=== PATIENT | female | born 1935 | race Caucasian/White ===

== ENCOUNTER → 2016-06-12 | Outpatient (CLI) | payer MEDICARE ==
[2016-06-12 14:20] LABS: Blood Urea Nitrogen 25 mg/dL (7-17); Non-African American GFR(MDRD) >60 (>60 ml/min/1.73 sqM)
--- NOTE | 2016-06-12 15:17 | CT ---
EXAMINATION TYPE: CT ChestAbdPelvis wo/w con DATE OF EXAM: 06/12/2016 3:04 PM INDICATION: Patient in for follow up on endometrial cancer and abdominal hernia COMPARISON: NONE CT DLP: 1579 mGycm CONTRAST: Performed with IV Contrast, patient injected with 100 mL of Omnipaque 300. TECHNIQUE: Axial images at 5 mm thick sections. Reconstructed images in the coronal plane. Delayed images through the kidneys. FINDINGS: CT CHEST: Portion of the thyroid visualized is normal. No suspicious lung nodules or focal infiltrates are present. No enlarged mediastinal or hilar adenopathy is evident. The ascending aorta diameter at the level of the main pulmonary artery is 3.7 cm. The main pulmonary artery diameter at the bifurcation is 3.2 cm. Vascular calcification is within the aorta. Some tracheal calcification is present. Coronary artery c alcification is present. CT ABDOMEN: Liver: Normal Spleen: Normal Pancreas: Atrophic Adrenal glands: The adrenal glands are normal. Gallbladder: Normal Kidneys: No masses are evident. No hydronephrosis is present. There is a 1.1 cm cyst measuring 11 H [place] units is superior posterior left pole kidney. Delayed images were obtained through the kid neys, which remain unremarkable. Aorta: Vascular calcification is within the aorta. Inferior vena cava: Normal. CT PELVIS: Loops of bowel within the abdomen and pelvis are normal. There are loops of bowel which are incom pletely distended or lack oral contrast limiting their evaluation. Appendix: Not clearly identified. No suspicious tubular structures are evident. Normal appendix may b e present in the right lower quadrant. Urinary bladder: Normal. Genitourinary structures: Uterus is absent. Adnexal regions are clear. No free fluid is within the pe lvis. Multiple phleboliths within the pelvis. Osseous structures: No suspicious lytic or sclerotic lesions. IMPRESSIONS: 1. No suspicious changes to suggest metastatic disease. 2. Left renal cyst
== END | disposition home or self-care (01) ==
LOC: RADCTMAIN 12:54
PROVIDERS: ATTEND Radiology Radiation Oncology
DX: N28.1 Cyst of kidney, acquired (principal); C54.1 Malignant neoplasm of endometrium
CPT/HCPCS: 82565; 84520; 71270; 74178; 36415; Q9967

== ENCOUNTER → 2017-02-22 | Outpatient (CLI) | payer MEDICARE ==
--- NOTE | 2017-02-22 11:44 | BD ---
EXAMINATION TYPE: MG DEXA axial skeleton. DATE OF EXAM: 02/22/2017 COMPARISON: NONE CLINICAL HISTORY: M85.9 Osteopenia Height: 4 FT 10 1/2 IN Weight: 172 FRAX RISK QUESTIONS: Alcohol (3 or more units per day): NO Family History (Parent hip fracture): NO Glucocorticoids (More than 3mos): NO (Ex: prednisone, prednisolone, methylprednisolone, dexamethasone, and hydrocortisone). History of Fracture in Adulthood: YES Secondary Osteoporosis: 1. Type 1 Diabetes: NO 2. Hyperthyroidism: NO 3. Menopause before 45: NO 4. Malnutrition: NO 5. Chronic liver disease: NO Rheumatoid Arthritis:YES Current Tobacco Use: NO RISK FACTORS HISTORY OF: Active: YES Postmenopausal woman: AGE 54 Lost more than 2 inches in height since high school: YES Frequent falls: NO MEDICATIONS: Additional Medications: HYZAAR, CATAPRES, LIPITOR, PROTONIX, TENORMIN, WARFARIN, APRESOLINE, NORVASC, MOBIC, BACLOFEN, LATANOPROST, CALCIUM, VIT D, Additional History: UTERINE CANCER RADIATION 2005 EXAM MEASUREMENTS: Bone mineral densitometry was performed using the [employer] System. Bone mineral density as measured about the Lumbar spine is: ----- L1-L4(G/cm2): 1.636 T Score Values are as follows: ----- L2: 3.4 ----- L3: 4.8 ----- L4: 4.6 ----- L1-L4: 3.8 BASELINE Bone mineral density about the R hip (g/cm2): 1.033 Bone mineral density about the L hip (g/cm2): 1.079 T Score values are as follows: -----R Neck: 0.0 -----L Neck: 0.3 -----R Total: 1.1 -----L Total: 1.4 BASELINE IMPRESSION: Negative NOTE: T-SCORE=SD OF THE YOUNG ADULT MEAN.
--- NOTE | 2017-02-22 13:29 | MM ---
Reason for exam: screening (asymptomatic). Last mammogram was performed 2 years and 10 months ago. History: Patient is postmenopausal and has history of endometrial cancer at age 69. Family history of breast cancer in maternal aunt at age 90. Physical Findings: A clinical breast exam by your physician is recommended on an annual basis and results should be correlated with mammographic findings. MG 3D Screening Mammo W/Cad Bilateral CC and MLO view(s) were taken. Prior study comparison: April 14, 2014, bilateral MG screening mammo w CAD. April 03, 2013, bilateral digital screening mammo w/CAD. The breast tissue is heterogeneously dense. This may lower the sensitivity of mammography. Finding: There are typically benign calcifications in both breasts. There is no discrete abnormality. No significant changes in finding since April 14, 2014 and April 03, 2013. ASSESSMENT: Benign, BI-RAD 2 RECOMMENDATION: Routine screening mammogram of both breasts in 1 year.
== END | disposition home or self-care (01) ==
LOC: RADMAMWWP 07:41
PROVIDERS: ATTEND Internal Medicine Geriatric Medicine
DX: Z12.31 Encounter for screening mammogram for malignant neoplasm of breast (principal); M81.0 Age-related osteoporosis without current pathological fracture
CPT/HCPCS: 77080; 77063; G0202

== ENCOUNTER → 2018-06-27 | Outpatient (CLI) | payer MEDICARE ==
[2018-06-27 15:55] LABS: Albumin 4.4 g/dL (3.5-5.0); Calcium 9.3 mg/dL (8.4-10.2); Potassium 4.2 mmol/L (3.5-5.1); Total Bilirubin 0.4 mg/dL (0.2-1.3); Total Protein 6.8 g/dL (6.3-8.2)
--- NOTE | 2018-06-28 08:36 | CT ---
EXAMINATION TYPE: CT ChestAbdPelvis wo/w con DATE OF EXAM: 06/27/2018 COMPARISON: 06/12/2016 HISTORY: yearly f/u uterine ca CT DLP: 1501.6 mGycm CONTRAST: CT scan of the chest, abdomen and pelvis is performed with Oral Contrast and with IV Contrast, patien t injected with 100 mL of Isovue 300. CT Chest: LUNGS: The study is limited by patient motion and resultant artifact. Other groundglass opacities at the lung bases which may be a result of the aforementioned artifact versus acute inflammatory process . I do not see evidence for focal nodule or mass. Linear upper lobe atelectasis or parenchymal scarri ng noted. MEDIASTINUM: There is evidence of moderately severe cardiomegaly. Coronary artery calcifications are noted. There is atheromatous change of the thoracic aorta without evidence for aneurysm. No evidence for mediastinal mass or adenopathy. HILAR STRUCTURES: No evidence for mass. No hilar adenopathy is appreciated. OTHER: No significant abnormality. CONTRAST CT ABDOMEN AND PELVIS FINDINGS: LIVER/GB: No calcified gallstones. No space occupying hepatic lesion. Biliary tree is of normal ca liber. PANCREAS: No inflammation. No distinct mass. SPLEEN: No splenic enlargement. No lesion seen. ADRENALS: No nodule. No thickening. KIDNEYS/BLADDER: No hydronephrosis. No nephrolithiasis. No disctinct renal mass. BOWEL: Normal appendix. Normal bowel caliber. No inflammation. GENITAL ORGANS: There is been previous hysterectomy and oophorectomy. No evidence for recurrent or re sidual mass. No adenopathy is seen within the pelvis. Social LYMPH NODES: No greater than 1cm abdominal or pelvic lymph nodes are appreciated. AORTA: No significant abnormality. OSSEOUS STRUCTURES: No significant abnormality is seen. OTHER: No significant additional abnormality is seen. IMPRESSION: 1. No evidence for metastatic disease at this time to the chest abdomen or pelvis. 2. Limited evaluation of the chest. Correlate for possible acute inflammatory process.
== END | disposition home or self-care (01) ==
LOC: RADCTMAIN 13:40
PROVIDERS: ATTEND Radiology Radiation Oncology
DX: C54.9 Malignant neoplasm of corpus uteri, unspecified (principal); R91.8 Other nonspecific abnormal finding of lung field
CPT/HCPCS: 80053; 71270; 74178; 36415; Q9967

== ENCOUNTER → 2018-07-30 | Outpatient (CLI) | payer MEDICARE ==
--- NOTE | 2018-07-31 09:53 | MM ---
Reason for exam: screening (asymptomatic). Last mammogram was performed 1 year and 5 months ago. History: Patient is postmenopausal and has history of endometrial cancer at age 69. Family history of breast cancer in maternal aunt at age 90. Physical Findings: A clinical breast exam by your physician is recommended on an annual basis and results should be correlated with mammographic findings. MG 3D Screening Mammo W/Cad Bilateral CC and MLO view(s) were taken. Prior study comparison: February 22, 2017, bilateral MG 3d screening mammo w/cad. April 14, 2014, bilateral MG screening mammo w CAD. The breast tissue is heterogeneously dense. This may lower the sensitivity of mammography. Stable benign calcifications. There is no discrete abnormality. No significant changes when compared with prior studies. ASSESSMENT: Benign, BI-RAD 2 RECOMMENDATION: Routine screening mammogram of both breasts in 1 year.
== END | disposition home or self-care (01) ==
LOC: RADMAMWWP 13:02
PROVIDERS: ATTEND Internal Medicine Geriatric Medicine
DX: Z12.31 Encounter for screening mammogram for malignant neoplasm of breast (principal)
CPT/HCPCS: 77063; 77067

== ENCOUNTER 2019-04-25 05:56 | Day surgery (SDC) | payer MEDICARE ==
[2019-04-24 15:13] VITALS: BMI 35.5
[2019-04-25] MEDS: SODIUM CHLORIDE 0.9% 1,000 ML IV SCH (06:37)
[2019-04-25 06:52] LABS: Anisocytosis Slight; Basophils # (A) 0.1 k/uL (0-0.2); Basophils % (A) 1 %; Eosinophils # (A) 0.1 k/uL (0-0.7); Eosinophils % (A) 1 %; HCT 29.4 % (34.0-46.0); HGB 8.9 gm/dL (11.4-16.0); Hypochromasia Marked; Lymphocytes # (A) 1.1 k/uL (1.0-4.8); Lymphocytes % (A) 15 %; MCH 29.3 pg (25.0-35.0); MCHC 30.3 g/dL (31.0-37.0); MCV 96.6 fL (80.0-100.0); Macrocytosis Slight; Mean Platelet Volume 9.6; Monocytes # (A) 0.6 k/uL (0-1.0); Monocytes % (A) 9 %; Neutrophils # (A) 5.2 k/uL (1.3-7.7); Neutrophils % (A) 72 %; Platelet Count 357 k/uL (150-450); RBC 3.04 m/uL (3.80-5.40); WBC 7.3 k/uL (3.8-10.6)
[2019-04-25] MEDS ORDERED: ceFAZolin 1,000 MG in SODIUM CHLORIDE 0.9% IRRIGATIO 250 ML IRRIGATION ONE (07:00)
[2019-04-25 07:01] LABS: Potassium 4.4 mmol/L (3.5-5.1)
[2019-04-25 07:08] LABS: INR 1.2 (<1.2); Prothrombin Time 12.4 sec (9.0-12.0)
[2019-04-25] MEDS ORDERED: IV FLUID CONTINUATION 1,000 ML IV ONE (07:30)
[2019-04-25] MEDS ORDERED: LIDOCAINE 1% INJ 10MG/ML (20 ML MDV) ONE (07:49)
[2019-04-25] MEDS ORDERED: fentaNYL (PF) 50 MCG/ML 2 ML AMP ONE (07:56)
[2019-04-25] MEDS ORDERED: MIDAZOLAM 2 MG/2 ML VIAL IV ONE (08:00)
[2019-04-25] MEDS ORDERED: fentaNYL (PF) 50 MCG/ML 2 ML AMP IV ONE (08:00)
[2019-04-25] MEDS ORDERED: LIDOCAINE 1% INJ 10MG/ML (20 ML MDV) SQ ONE ×3 (08:03→08:10)
[2019-04-25] MEDS ORDERED: ACETAMINOPHEN TAB 325 MG TAB PO PRN (08:46)
[2019-04-25] MEDS ORDERED: MELOXICAM 7.5 MG TAB PO PRN (08:47)
--- NOTE | 2019-04-25 08:55 | P.PCN ---
Date of Procedure: 04/25/19 Preoperative Diagnosis: Sick sinus syndrome Postoperative Diagnosis: The same Procedure(s) Performed: Axillary venography, single-chamber permanent pacemaker implantation Description of Procedure: HISTORY: This is a 83-year-old female with history of atrial fibrillation, sick sinus syndrome and syncope and was advised permanent pacemaker implantation by Dr. Haque. CONSENT:I have discussed the risks, benefits and alternative therapies for the above-mentioned procedure and for both sedation/analgesia as well as necessary blood product administration, if indicated, as they pertain to this patient. The patient has indicated understanding and acceptance of the risks and procedures discussed. PROCEDURE: Patient was brought to the lab in a fasting state. Patient was prepped and draped in the usual fashion. Patient was given IV sedation with fentanyl and Versed. The skin below the left clavicle was infiltrated with lidocaine. An incision was made parallel to deltopectoral groove was deepened until the pectoral fascia was exposed. A pocket was created by blunt dissection and cautery. Axillary venography was performed to delineate the course of the axillary vein. A single venous stick was performed into extrathoracic portion of the axillary vein and and a single sheath was advanced over the guidewires and left in subclavian vein. Conscious Sedation: Versed 1mg Fentanyl 12.5 g Duration 40minutes LEADS: VENTRICULAR: This is manufactured by [employer] model number is 4074-52 and the serial number is [id number]. THE DEVICE: This is manufactured by [employer]. Model number is W3SR01 and the serial number is [id number] . The ventricular lead is maneuvered l with help of a straight and curved stylets into the left ventricle apical region. Satisfactory position was obtained and threshold measurements were made. The atrial lead was then maneuvered into the right atrial appendage. And thresholds were obtained. THRESHOLDS: VENTRICLE: The minimum patient threshold is 0.375 at pulse width of 0.4. The impedance is 684. The R-wave is 7 mV. The leads and pulse generator remained in the pocket after it was washed with antibiotics. Pocket was closed in the usual fashion. The fascia was closed with 2-0 Prolene ,the subcutaneous tissue was closed with 3-0 Prolene and the skin was closed with 4-0 Prolene. PROGRAMMING: MODE: VVIR RATE: 60- 120 OUTPUT: Ventricle L and 3.5 V FINAL IMPRESSION: . Successful implantation of single-chamber pacemaker. Axillary venography COMPLICATIONS: None. PLAN: Continue prophylactic antibiotics. Observe on the observation unit for 24 hours. Chest x-ray in the morning. Resume home medication including Coumadin. If patient remains stable, discharge home tomorrow
[2019-04-25] MEDS ORDERED: NON FORMULARY DRUG (Omega-3 Fatty Acids [Omega-3] 1,000 MG) PO SCH (09:00)
[2019-04-25] MEDS ORDERED: BACLOFEN 10 MG TAB PO SCH (09:00)
[2019-04-25] MEDS ORDERED: MULTIVITAMINS, THERA 1 EACH TAB PO SCH (09:00)
[2019-04-25] MEDS ORDERED: amLODIPine 10 MG TAB PO SCH (09:00)
[2019-04-25] MEDS ORDERED: hydrALAZINE HCL 50 MG TAB PO SCH (09:00)
[2019-04-25] MEDS ORDERED: WARFARIN 5 MG TAB PO SCH (09:00)
[2019-04-25] MEDS ORDERED: LOSARTAN-HCTZ 50-12.5 MG 1 EACH TAB PO SCH (09:00)
[2019-04-25 09:40] VITALS: RESP 18
[2019-04-25] MEDS ORDERED: CALCIUM CARB-VIT D 500MG-200UN 1 EACH TAB PO SCH (12:30)
[2019-04-25] MEDS: CHOLECALCIFEROL 1,000 UNIT TAB PO SCH (13:02)
[2019-04-25] MEDS: hydrALAZINE HCL 50 MG TAB PO SCH (16:09)
[2019-04-25] MEDS: cloNIDine HCL 0.1 MG TAB PO SCH ×2 (16:09→20:51)
[2019-04-25] MEDS ORDERED: ATORVASTATIN 10 MG TAB PO SCH (17:30)
[2019-04-25] MEDS ORDERED: WARFARIN 5 MG TAB PO ONE (18:00)
[2019-04-25] MEDS ORDERED: LATANOPROST 0.005% OPHTH DROPS 2.5 ML BTL BOTH EYES SCH (21:00)
[2019-04-25] MEDS ORDERED: MELATONIN 5 MG TABLET PO SCH (21:00)
[2019-04-26] MEDS: hydrALAZINE HCL 50 MG TAB PO SCH ×2 (00:52→08:23)
[2019-04-26] MEDS: SODIUM CHLORIDE 0.9% 1,000 ML IV SCH (00:52)
[2019-04-26 06:26] LABS: INR 1.1 (<1.2); Prothrombin Time 11.6 sec (9.0-12.0)
--- NOTE | 2019-04-26 06:39 | XR ---
EXAMINATION TYPE: XR chest 2V DATE OF EXAM: 04/26/2019 HISTORY: Lead placement check. REFERENCE: Previous study dated 06/04/2013. FINDINGS: There is unipolar pacemaker place on the left. The heart is enlarged. Lungs are clear. Pleural spaces are clear. IMPRESSION: MILD CARDIOMEGALY.
[2019-04-26] MEDS ORDERED: PANTOPRAZOLE 40 MG TABLET PO SCH (07:30)
[2019-04-26] MEDS: CHOLECALCIFEROL 1,000 UNIT TAB PO SCH (08:24)
[2019-04-26] MEDS: cloNIDine HCL 0.1 MG TAB PO SCH (08:24)
[2019-04-26] MEDS ORDERED: BACLOFEN 10 MG TAB PO SCH (09:00)
[2019-04-26] MEDS ORDERED: MULTIVITAMINS, THERA 1 EACH TAB PO SCH (09:00)
[2019-04-26] MEDS ORDERED: LOSARTAN-HCTZ 50-12.5 MG 1 EACH TAB PO SCH (09:00)
[2019-04-26] MEDS ORDERED: amLODIPine 10 MG TAB PO SCH (09:00)
--- NOTE | 2019-04-26 10:07 | P.DS ---
Providers Attending physician: Caden Graff Primary care physician: [facility] Course: This is a very pleasant 83-year-old female patient who was diagnosed recently with sick sinus syndrome and underwent permanent pacemaker by Dr. Graff. The patient was seen today. She is asymptomatic. The chest x-ray was reviewed and showed no evidence of pneumothorax. It did also show a good position of the RV lead. The patient is going to be discharged home and follow-up with Dr. Dr. Graff Plan - Discharge Summary Discharge Rx Participant: Yes New Discharge Prescriptions: Continue Aspirin 81 mg PO W/SUPPER Atorvastatin Calcium [Lipitor] 10 mg PO W/SUPPER Melatonin 5 mg PO HS Gambier-3 Fatty Acids [Gambier-3] 1,000 mg PO DAILY #0 Ca/D3/Mag/Zinc/Cristóbal/Lavon/Mgbor [Caltrate 600-D3-Min Chew Tab] 1 tab PO W/LUNCH Pantoprazole [Protonix] 40 mg PO AC-BRKFST #30 tablet. Warfarin [Coumadin] 5 mg PO SUTUTHSA Warfarin [Coumadin] 2.5 mg PO MOWEFR hydrALAZINE HCL [Apresoline] 50 mg PO TID #90 tab amLODIPine [Norvasc] 10 mg PO DAILY Cholecalciferol [Vitamin D3 (25 Mcg = 1000 Iu)] 5,000 unit PO DAILY cloNIDine HCL [Catapres] 0.1 tab PO TID Multivitamins, Thera [Multivitamin (formulary)] 1 tab PO DAILY Latanoprost Ophth [Xalatan 0.005%] 1 drops BOTH EYES HS Celecoxib [CeleBREX] 200 mg PO DAILY PRN PRN Reason: Pain Baclofen [Lioresal] 5 mg PO DAILY Losartan/Hydrochlorothiazide [Losartan-Hctz 100-25 mg Tab] 1 tab PO DAILY Discharge Medication List Aspirin 81 mg PO W/SUPPER 05/10/15 [History] Atorvastatin Calcium [Lipitor] 10 mg PO W/SUPPER 05/10/15 [History] Ca/D3/Mag/Zinc/Cristóbal/Lavon/Mgbor [Caltrate 600-D3-Min Chew Tab] 1 tab PO W/LUNCH 05/10/15 [History] Melatonin 5 mg PO HS 05/10/15 [History] Gambier-3 Fatty Acids [Gambier-3] 1,000 mg PO DAILY #0 03/07/16 [History] Pantoprazole [Protonix] 40 mg PO BRIDGERKFST #30 tablet. 05/16/15 [Rx] Warfarin [Coumadin] 2.5 mg PO MOWEFR 10/14/15 [History] Warfarin [Coumadin] 5 mg PO SUTUTHSA 10/14/15 [History] hydrALAZINE HCL [Apresoline] 50 mg PO TID #90 tab 10/29/15 [Rx] Cholecalciferol [Vitamin D3 (25 Mcg = 1000 Iu)] 5,000 unit PO DAILY 02/08/16 [History] amLODIPine [Norvasc] 10 mg PO DAILY 02/08/16 [History] cloNIDine HCL [Catapres] 0.1 tab PO TID 02/08/16 [History] Baclofen [Lioresal] 5 mg PO DAILY 04/24/19 [History] Celecoxib [CeleBREX] 200 mg PO DAILY PRN 04/24/19 [History] Latanoprost Ophth [Xalatan 0.005%] 1 drops BOTH EYES HS 04/24/19 [History] Losartan/Hydrochlorothiazide [Losartan-Hctz 100-25 mg Tab] 1 tab PO DAILY 04/24/19 [History] Multivitamins, Thera [Multivitamin (formulary)] 1 tab PO DAILY 04/24/19 [History] Follow up Appointment(s)/Referral(s): Caden Graff MD [STAFF PHYSICIAN] - 1 Week
[2019-04-26 12:21] VITALS: BP 149/76; PULSE 62; TEMP 98.2
[2019-04-26] MEDS ORDERED: WARFARIN 5 MG TAB PO ONE (18:00)
== END 2019-04-26 13:00 | disposition home or self-care (01) ==
LOC: CATHEP 05:56 → 1SOBS 08:40 → CATHEP 04-26 13:00
PROVIDERS: ATTEND Internal Medicine Cardiovascular Disease
DX: I49.5 Sick sinus syndrome (principal); I48.21 Permanent atrial fibrillation; I11.9 Hypertensive heart disease without heart failure; E78.2 Mixed hyperlipidemia; Z72.0 Tobacco use; Z79.82 Long term (current) use of aspirin; Z79.899 Other long term (current) drug therapy; Z79.01 Long term (current) use of anticoagulants; Z86.79 Personal history of other diseases of the circulatory system; Z98.890 Other specified postprocedural states
CPT/HCPCS: 33207; 80048; 85025; 85610 ×2; 71046; C1769 ×2; C1892; C1898; C1786; J2250; J0690 ×2; J2001; J3010

== ENCOUNTER → 2019-09-22 | Outpatient (CLI) | payer MEDICARE ==
[2019-09-22 10:50] LABS: Anisocytosis Slight; Appearance,Urine Clear (Clear); Basophils % (A) 1 %; Bilirubin,Urine Negative (Negative); Blood,Urine Negative (Negative); Color,Urine Yellow; Eosinophils # (A) 0.1 k/uL (0-0.7); Eosinophils % (A) 2 %; Glucose,Urine (UA) Negative (Negative); HCT 33.7 % (34.0-46.0); HGB 10.4 gm/dL (11.4-16.0); Hypochromasia Moderate; Ketones,Urine Negative (Negative); Leukocyte Esterase,Urine Negative (Negative); Lymphocytes # (A) 1.3 k/uL (1.0-4.8); Lymphocytes % (A) 22 %; MCH 30.8 pg (25.0-35.0); MCHC 30.9 g/dL (31.0-37.0); MCV 99.6 fL (80.0-100.0); Macrocytosis Slight; Mean Platelet Volume 8.7; Monocytes # (A) 0.3 k/uL (0-1.0); Monocytes % (A) 6 %; Neutrophils % (A) 68 %; Nitrite,Urine Negative (Negative); Platelet Count 286 k/uL (150-450); Protein,Urine Negative (Negative); RBC 3.38 m/uL (3.80-5.40); RDW 16.3 % (11.5-15.5); Specific Gravity,Urine 1.013 (1.001-1.035); Urobilinogen,Urine <2.0 mg/dL (<2.0); WBC 5.9 k/uL (3.8-10.6)
--- NOTE | 2019-09-22 12:11 | XR ---
EXAMINATION TYPE: XR chest 2V DATE OF EXAM: 09/22/2019 COMPARISON: Prior chest x-ray 04/26/2019 HISTORY: Uterine carcinoma, COPD and atelectasis TECHNIQUE: Frontal and lateral views of the chest are obtained. FINDINGS: There is a generator in left pectoral region, is a lead in the right ventricle. There is n o pneumothorax or pleural effusion. Heart remains enlarged. Aorta is dense. There is mitral annular c alcification present. Interstitium is mildly increased. IMPRESSION: Findings are similar to prior exam. Correlate for possible pulmonary venous hypertension and interstitial edema.
[2019-09-22 16:54] LABS: % Iron Saturation 17.35 (12.00-45.00); ALT 14 U/L (8-44); AST 24 U/L (13-35); African American GFR (CKD) 77.9 (60.0-200.0); Alkaline Phosphatase 79 U/L (41-126); Bilirubin, Conjugated <0.20 mg/dL (0.20-0.40); Calcium 9.4 mg/dL (8.7-10.3); Chloride 107 mmol/L (96-109); Glucose 140 mg/dL (70-110); Iron 59 ug/dL (50-170); Non-African American GFR(CKD) 67.2 (60.0-200.0); Potassium 3.8 mmol/L (3.5-5.5); Sodium 141 mmol/L (135-145); Total Bilirubin 0.3 mg/dL (0.2-1.2); Total Iron Binding Capacity 340 ug/dL (228-460); Total Protein 6.4 g/dL (6.2-8.2)
[2019-09-22 17:04] LABS: Ferritin 29.9 ng/mL (10.0-291.0)
[2019-09-22 17:29] LABS: Cancer Antigen 125 9.3 U/mL (0.0-30.1)
== END | disposition home or self-care (01) ==
LOC: LABWHC1 09:30
PROVIDERS: ATTEND Radiology Radiation Oncology
DX: C54.9 Malignant neoplasm of corpus uteri, unspecified (principal); R10.33 Periumbilical pain; Z92.3 Personal history of irradiation
CPT/HCPCS: 36415; 71046; 80048; 80076; 81003; 82306; 82728; 83540; 83550; 84425; 84439; 84443; 84481; 85025; 86304; 87086

== ENCOUNTER 2022-03-17 19:41 | Inpatient (IN) | payer MEDICARE ==
--- NOTE | 2022-03-17 20:32 | ED ---
Extremity Problem HPI - General Chief complaint: Extremity Problem,Nontraumatic Stated complaint: lymphodema Time Seen by Provider: 03/17/22 19:57 Source: patient, EMS Mode of arrival: EMS Limitations: no limitations - History of Present Illness Initial comments: Patient is an 86-year-old female presenting to the emergency room with complaints of worsening of chronic lower extremity swelling and lower extremity pain. She reports that she has her lower extremities wrapped daily and has been encouraged by her surgical pathologist and family to present to the emergency room but has been reluctant to do so however due to increase in pain and swelling she chose to contact EMS for transportation to the emergency room. She does have a history of uterine cancer and developed lymphedema after surgical intervention. She denies any shortness of breath, chest pain, abdominal pain, nausea, vomiting, headache or dizziness. She is able to ambulate but reports that it is difficult. She denies any trauma to her lower extremities. She reports that her legs are wrapped daily by an aide which she has come into her home. In addition to her uterine cancer lower extremity swelling she has a past medical history significant for atrial fibrillation, GERD, hypertension, hyperlipidemia and arthritis. - Related Data Home Medications Medication Instructions Recorded Confirmed Aspirin 81 mg PO W/SUPPER 05/10/15 04/24/19 Atorvastatin Calcium [Lipitor] 10 mg PO W/SUPPER 05/10/15 04/24/19 Ca/D3/Mag/Zinc/Cristóbal/Lavon/Mgbor 1 tab PO W/LUNCH 05/10/15 04/25/19 [Caltrate 600-D3-Min Chew Tab] Melatonin 5 mg PO HS 05/10/15 04/25/19 [place]-3 Fatty Acids [[place]-3] 1,000 mg PO DAILY #0 05/10/15 04/25/19 Warfarin [Coumadin] 2.5 mg PO MOWEFR 10/14/15 04/25/19 Warfarin [Coumadin] 5 mg PO SUTUTHSA 10/14/15 04/25/19 Cholecalciferol [Vitamin D3 (25 5,000 unit PO DAILY 02/08/16 04/25/19 Mcg = 1000 Iu)] amLODIPine [Norvasc] 10 mg PO DAILY 02/08/16 04/25/19 cloNIDine HCL [Catapres] 0.1 tab PO TID 02/08/16 04/25/19 Baclofen [Lioresal] 5 mg PO DAILY 04/24/19 04/25/19 Celecoxib [CeleBREX] 200 mg PO DAILY PRN 04/24/19 04/25/19 Latanoprost Ophth [Xalatan 0.005%] 1 drops BOTH EYES HS 04/24/19 04/25/19 Losartan/Hydrochlorothiazide 1 tab PO DAILY 04/24/19 04/25/19 [Losartan-Hctz 100-25 mg Tab] Multivitamins, Thera [Multivitamin 1 tab PO DAILY 04/24/19 04/25/19 (formulary)] Previous Rx's Medication Instructions Recorded Pantoprazole [Protonix] 40 mg PO AC-BRKFST #30 tablet. 05/16/15 hydrALAZINE HCL [Apresoline] 50 mg PO TID #90 tab 10/29/15 Allergies Allergy/AdvReac Type Severity Reaction Status Date / Time No Known Allergies Allergy Verified 04/24/19 15:03 Review of Systems ROS Statement: Those systems with pertinent positive or pertinent negative responses have been documented in the HPI. ROS Other: All systems not noted in ROS Statement are negative. Past Medical History Past Medical History: Atrial Fibrillation, Cancer, GERD/Reflux, Hyperlipidemia, Hypertension, Osteoarthritis (OA) Additional Past Medical History / Comment(s): uterine cancer 14 yrs. ago, surg. & radiation, IGT,chronic dependent edema left leg-leg wrapped, VARICOSE VEINS, urinary incontinence, recent admission to [facility] for fall & syncope History of Any Multi-Drug Resistant Organisms: None Reported Past Surgical History: Bowel Resection, Hysterectomy, Tonsillectomy Additional Past Surgical History / Comment(s): lung surgery left thoracotomy negative for lung mass 2007, SMALL VAGINAL MASS REMOVED, COLONOSCOPY,ELISEO CATARACT. Past Anesthesia/Blood Transfusion Reactions: No Reported Reaction Past Psychological History: No Psychological Hx Reported Past Alcohol Use History: Occasional Past Drug Use History: None Reported - Past Family History Father Family Medical History: Coronary Artery Disease (CAD) Mother Family Medical History: Coronary Artery Disease (CAD) Brother(s) Family Medical History: Cancer Son(s) Family Medical History: Respiratory Disorder General Exam - General Exam Comments Initial Comments: GENERAL: No acute distress, well developed, well nourished. HEENT: Normocephalic, atraumatic. Pupils equal, round, reactive to light. Moist mucous membranes. LUNGS: No respiratory distress. Clear to auscultation, no adventitious sounds, no use of accessory muscles. HEART: Irregular rhythm, controlled rate with systolic murmur, without diastolic murmur, rub, or gallop. ABDOMEN: Normal bowel sounds. Soft, non-tender, non-distended. BACK: Normal inspection. EXTREMITIES: Bilateral lower extremity edema +2 pitting with significant nonpitting edema. NEUROLOGIC: Alert & oriented x 3. CN II-XII grossly intact. PSYCHIATRIC: Normal affect and behavior. DERMATOLOGIC: Bilateral wrappings intact to lower extremities. Area of erythema noted to her right inner thigh. Dry scaly patches noted to bilateral feet. Limitations: no limitations Course Vital Signs 03/17/22 19:50 Temperature 98 F Pulse Rate 60 Respiratory 18 Rate Blood Pressure 103/50 O2 Sat by Pulse 98 Oximetry Medical Decision Making - Medical Decision Making Was pt. sent in by a medical professional or institution (, PA, SPACE SCHEDULER, urgent care, hospital, or senior living...) When possible be specific @ -No Did you speak to anyone other than the patient for history (EMS, parent, family, police, friend...)? What history was obtained from this source @ -EMS report reviewed Did you review nursing and triage notes (agree or disagree)? Why? @ -I reviewed and agree with nursing and triage notes Were old charts reviewed (outside hosp., previous admission, EMS record, old EKG, old radiological studies, urgent care reports/EKG's, senior living records)? Report findings @ -No old charts were reviewed Differential Diagnosis (chest pain, altered mental status, abdominal pain women, abdominal pain men, vaginal bleeding, weakness, fever, dyspnea, syncope, headache, dizziness, GI bleed, back pain, seizure, CVA, palpatations, mental health)? @ -Differential lower extremity swelling: Congestive heart failure, lymphedema, cellulitis, DVT, this is not meant to be an all-inclusive list. EKG interpreted by me (3pts min.). @ -Not done X-rays interpreted by me (1pt min.). @ -Chest x-ray two-view demonstrates cardiomegaly with no evidence of pulmonary vascular congestion. CT interpreted by me (1pt min.). @ -None done U/S interpreted by me (1pt. min.). @ -None done What testing was considered but not performed or refused? (CT, X-rays, U/S, labs)? Why? @ -None What meds were considered but not given or refused? Why? @ -None Did you discuss the management of the patient with other professionals (professionals i.e. , PA, SPACE SCHEDULER, lab, RT, psych nurse, rn social services, tar worker, teacher, worldwide chief creative officer, caser in)? Give summary @ -Krissy Chiu [facility] Was smoking cessation discussed for >3mins.? @ -No Was critical care preformed (if so, how long)? @ -No Were there social determinants of health that impacted care today? How? (Homelessness, low income, unemployed, alcoholism, drug addiction, transportation, low edu. Level, literacy, decrease access to med. care, fdc, rehab)? @ -No Was there de-escalation of care discussed even if they declined (Discuss DNR or withdrawal of care, Hospice)? DNR status @ -No What co-morbidities impacted this encounter? (DM, HTN, Smoking, COPD, CAD, Cancer, CVA, ARF, Chemo, Hep., AIDS, mental health diagnosis, sleep apnea, morbid obesity)? @ -Chronic lower extremity swelling/lymphedema Was patient admitted / discharged? Hospital course, mention meds given and rout e, prescriptions, significant lab abnormalities, going to OR and other pertinent info. @ -No indication for ultrasound or imaging of the lower extremities in the setting of chronic swelling without any localized wound. Will obtain chest x-ray to evaluate for pulmonary vascular congestion along with proBNP, CBC, and BMP. Denies pain at this time. No indication for any analgesics. Overlie likely secondary to lymphedema will hold diuretics at this time. Chest x-ray negative for pulmonary vascular congestion. As above. Laboratory studies reveal acute renal failure with a BUN of 106 and a creatinine of 1.66. Mildly elevated potassium at 5.5. Suspect secondary to attempts for diuresis of lymphedema. ProBNP elevated at 5480. CBC reveals anemia of 7.4 with no previous readings available. Asymptomatic. Findings discussed with patient; will plan for admission for ZAC, anemia and lymphedema management. Will defer further treatment to admitting team. Spoke with Krissy Valencia with [facility] regarding admission. She is excepting admission. No further orders at this time. Will consult nephrology for evaluation and management of ZAC and diuretic need. Undiagnosed new problem with uncertain prognosis? @ -No Drug Therapy requiring intensive monitoring for toxicity (Heparin, Nitro, Insulin, Cardizem)? @ -No Were any procedures done? @ -No Diagnosis/symptom? @ -Acute renal failure Acute, or Chronic, or Acute on Chronic? @ -Acute Uncomplicated (without systemic symptoms) or Complicated (systemic symptoms)? @ -Complicated Side effects of treatment? @ -No Exacerbation, Progression, or Severe Exacerbation? @ -Exacerbation Poses a threat to life or bodily function? How? (Chest pain, USA, NH, pneumonia, PE, COPD, DKA, ARF, appy, cholecystitis, CVA, Diverticulitis, Homicidal, Suicidal, threat to staff... and all critical care pts) @ -No Diagnosis/symptom? @ -Lymphedema Acute, or Chronic, or Acute on Chronic? @ -Acute on chronic Uncomplicated (without systemic symptoms) or Complicated (systemic symptoms)? @ -Complicated Side effects of treatment? @ -ZAC Exacerbation, Progression, or Severe Exacerbation] @ -Progression Poses a threat to life or bodily function? @ -no Diagnosis/symptom? @ -Anemia Acute, or Chronic, or Acute on Chronic? @ -unknown Uncomplicated (without systemic symptoms) or Complicated (systemic symptoms)? @ -complicated Side effects of treatment? @ -none Exacerbation, Progression, or Severe Exacerbation] @ -unknown Poses a threat to life or bodily function? @ -no Case discussed with Dr. Johnson. - Lab Data Result diagrams: 03/17/22 20:39 03/17/22 20:39 Lab Results 03/17/22 03/17/22 03/17/22 Range/Units 20:39 20:39 20:39 WBC 7.0 (3.8-10.6) k/uL RBC 2.39 L (3.80-5.40) m/uL Hgb 7.4 L (11.4-16.0) gm/dL Hct 25.1 L (34.0-46.0) % MCV 105.3 H (80.0-100.0) fL MCH 31.0 (25.0-35.0) pg MCHC 29.4 L (31.0-37.0) g/dL RDW 19.8 H (11.5-15.5) % Plt Count 333 (150-450) k/uL MPV 9.6 Neutrophils % 74 % Lymphocytes % 12 % Monocytes % 7 % Eosinophils % 4 % Basophils % 1 % Neutrophils # 5.1 (1.3-7.7) k/uL Lymphocytes # 0.8 L (1.0-4.8) k/uL Monocytes # 0.5 (0-1.0) k/uL Eosinophils # 0.3 (0-0.7) k/uL Basophils # 0.1 (0-0.2) k/uL Hypochromasia Marked Anisocytosis Slight Macrocytosis Marked A Sodium 138 (137-145) mmol/L Potassium 5.5 H (3.5-5.1) mmol/L Chloride 107 (98-107) mmol/L Carbon Dioxide 21 L (22-30) mmol/L Anion Gap 10 mmol/L BUN 106 H* (7-17) mg/dL Creatinine 1.66 H (0.52-1.04) mg/dL Est GFR (CKD-EPI)AfAm 32 (>60 ml/min/1.73 sqM) Est GFR (CKD-EPI)NonAf 28 (>60 ml/min/1.73 sqM) Glucose 147 H (74-99) mg/dL Calcium 8.7 (8.4-10.2) mg/dL NT-Pro-B Natriuret Pep 5480 pg/mL - Radiology Data Radiology results: report reviewed, image reviewed Disposition Clinical Impression: ZAC (acute kidney injury), Anemia, Lymphedema Disposition: ADMITTED IP TO THIS HOSP Condition: Stable Is patient prescribed a controlled substance at d/c from ED?: No Referrals: Tutu Augustine MD [Primary Care Provider] - 1-2 days Time of Disposition: 21:55
--- NOTE | 2022-03-17 20:35 | XR ---
EXAMINATION TYPE: XR chest 2V DATE OF EXAM: 03/17/2022 COMPARISON: 04/26/2019 HISTORY: Lead placement TECHNIQUE: 2 views FINDINGS: Heart is moderately enlarged. No heart failure. There is left axillary pacemaker with lead tip over the right ventricle. No pleural effusion. Bony thorax shows moderate arthritic change in the shoulder joints. IMPRESSION: Cardiomegaly. No heart failure. Heart appears increased compared to the old exam.
[2022-03-17 20:44] LABS: Anisocytosis Slight; Basophils # (A) 0.1 k/uL (0-0.2); Basophils % (A) 1 %; Eosinophils # (A) 0.3 k/uL (0-0.7); Eosinophils % (A) 4 %; HCT 25.1 % (34.0-46.0); HGB 7.4 gm/dL (11.4-16.0); Hypochromasia Marked; Lymphocytes # (A) 0.8 k/uL (1.0-4.8); Lymphocytes % (A) 12 %; MCHC 29.4 g/dL (31.0-37.0); MCV 105.3 fL (80.0-100.0); Macrocytosis Marked; Mean Platelet Volume 9.6; Monocytes # (A) 0.5 k/uL (0-1.0); Monocytes % (A) 7 %; Neutrophils # (A) 5.1 k/uL (1.3-7.7); Neutrophils % (A) 74 %; Platelet Count 333 k/uL (150-450); RBC 2.39 m/uL (3.80-5.40); RDW 19.8 % (11.5-15.5)
[2022-03-17 20:56] LABS: Calcium 8.7 mg/dL (8.4-10.2)
[2022-03-17 21:03] LABS: Potassium 5.5 mmol/L (3.5-5.1)
[2022-03-17] MEDS ORDERED: NALOXONE 0.4 MG/ML 1 ML VIAL IV PRN (21:51)
[2022-03-17] MEDS ORDERED: ACETAMINOPHEN TAB 500 MG TAB PO STA (22:32)
[2022-03-17] MEDS ORDERED: SODIUM ZIRCONIUM CYCLOSILICATE 10 GM PACKET PO ONE (23:46)
[2022-03-18] MEDS ORDERED: ACETAMINOPHEN TAB 325 MG TAB PO PRN (04:08)
[2022-03-18] MEDS ORDERED: traMADol 50 MG TAB PO STA (06:23)
[2022-03-18 07:35] LABS: Calcium 8.8 mg/dL (8.4-10.2); Magnesium 1.6 mg/dL (1.6-2.3); Phosphorus 4.4 mg/dL (2.5-4.5); Potassium 4.5 mmol/L (3.5-5.1)
[2022-03-18 07:44] LABS: Anisocytosis Slight; Basophils # (A) 0.1 k/uL (0-0.2); Basophils % (A) 1 %; Eosinophils # (A) 0.4 k/uL (0-0.7); Eosinophils % (A) 6 %; HCT 23.9 % (34.0-46.0); Hypochromasia Marked; Lymphocytes # (A) 0.9 k/uL (1.0-4.8); Lymphocytes % (A) 13 %; MCH 31.1 pg (25.0-35.0); MCHC 29.3 g/dL (31.0-37.0); MCV 106.2 fL (80.0-100.0); Macrocytosis Marked; Mean Platelet Volume 9.3; Monocytes # (A) 0.5 k/uL (0-1.0); Monocytes % (A) 7 %; Neutrophils # (A) 4.7 k/uL (1.3-7.7); Neutrophils % (A) 70 %; Platelet Count 302 k/uL (150-450); RBC 2.25 m/uL (3.80-5.40); RDW 19.7 % (11.5-15.5); WBC 6.6 k/uL (3.8-10.6)
--- NOTE | 2022-03-18 10:36 | P.NPCON ---
History of Present Illness - Reason for Consult Consult date: 03/18/22 acute renal failure - Chief Complaint Chronic lymphedema - History of Present Illness This is an 86-year-old female seen in consultation for acute kidney injury, hyperkalemia.creatinine was 1.66 and potassium 5.5 with a bicarb of 21 gap of 10. She was admitted because of worsening chronic bilateral lymphedema with open sores Her baseline creatinine 0.8 dated 09/22/2019. And then subsequently was 1.66 on admission yesterday on 03/17/2022 Past history significant for atrial fibrillation, uterine cancer status post surgery and radiation, chronic lymphedema, left carotid endarterectomy 2015, atrial fibrillation, pacemaker in 2019 Currently she is denying any nausea vomiting abdominal pain. No diarrhea. Appetite is fair. No fever chills. Denies any bladder complaints Past Medical History Past Medical History: Atrial Fibrillation, Cancer, GERD/Reflux, Hyperlipidemia, Hypertension, Osteoarthritis (OA), Syncope Additional Past Medical History / Comment(s): uterine cancer 14 yrs. ago, surg. & radiation, IGT,chronic dependent edema left leg-leg wrapped, VARICOSE VEINS, urinary incontinence, recent admission to [facility] for fall & syncope History of Any Multi-Drug Resistant Organisms: None Reported Past Surgical History: Bowel Resection, Hysterectomy, Tonsillectomy Additional Past Surgical History / Comment(s): lung surgery left thoracotomy negative for lung mass 2007?, SMALL VAGINAL MASS REMOVED, COLONOSCOPY,ELISEO CATARACT. Past Anesthesia/Blood Transfusion Reactions: No Reported Reaction Past Psychological History: No Psychological Hx Reported Smoking Status: Former smoker Past Alcohol Use History: Occasional Additional Past Alcohol Use History / Comment(s): SMOKED FOR 5 YEARS IN HER EARLY 30'S THEN QUIT Past Drug Use History: None Reported - Past Family History Father Family Medical History: Coronary Artery Disease (CAD) Mother Family Medical History: Coronary Artery Disease (CAD) Brother(s) Family Medical History: Cancer Son(s) Family Medical History: Respiratory Disorder Medications and Allergies Home Medications Medication Instructions Recorded Confirmed Type Aspirin 81 mg PO W/SUPPER 05/10/15 04/24/19 History Atorvastatin Calcium [Lipitor] 10 mg PO W/SUPPER 05/10/15 04/24/19 History Ca/D3/Mag/Zinc/Cristóbal/Lavon/Mgbor 1 tab PO W/LUNCH 05/10/15 04/25/19 History [Caltrate 600-D3-Min Chew Tab] Melatonin 5 mg PO HS 05/10/15 04/25/19 History [place]-3 Fatty Acids [[place]-3] 1,000 mg PO DAILY #0 05/10/15 04/25/19 History Pantoprazole [Protonix] 40 mg PO AC-BRKFST #30 tablet. 05/16/15 04/25/19 Rx Warfarin [Coumadin] 2.5 mg PO MOWEFR 10/14/15 04/25/19 History Warfarin [Coumadin] 5 mg PO SUTUTHSA 10/14/15 04/25/19 History hydrALAZINE HCL [Apresoline] 50 mg PO TID #90 tab 10/29/15 04/25/19 Rx Cholecalciferol [Vitamin D3 (25 5,000 unit PO DAILY 02/08/16 04/25/19 History Mcg = 1000 Iu)] amLODIPine [Norvasc] 10 mg PO DAILY 02/08/16 04/25/19 History cloNIDine HCL [Catapres] 0.1 tab PO TID 02/08/16 04/25/19 History Baclofen [Lioresal] 5 mg PO DAILY 04/24/19 04/25/19 History Celecoxib [CeleBREX] 200 mg PO DAILY PRN 04/24/19 04/25/19 History Latanoprost Ophth [Xalatan 0.005%] 1 drops BOTH EYES HS 04/24/19 04/25/19 History Losartan/Hydrochlorothiazide 1 tab PO DAILY 04/24/19 04/25/19 History [Losartan-Hctz 100-25 mg Tab] Multivitamins, Thera [Multivitamin 1 tab PO DAILY 04/24/19 04/25/19 History (formulary)] Allergies Allergy/AdvReac Type Severity Reaction Status Date / Time No Known Allergies Allergy Verified 04/24/19 15:03 Physical Exam Vitals: Vital Signs Temp Pulse Pulse Resp BP BP Pulse Ox 03/18/22 07:00 97.6 F 63 16 125/61 96 03/18/22 02:00 98.2 F 58 L 17 94/55 99 03/17/22 23:30 97.7 F 65 16 96/58 99 03/17/22 22:57 62 16 125/60 97 03/17/22 19:50 98 F 60 18 103/50 98 Intake and Output 03/17/22 03/18/22 03/18/22 22:59 06:59 14:59 Intake Total 320 Balance 320 Intake: Oral 320 Other: # Voids 4 # Bowel Movements 1 Weight 67.132 kg On examination is awake alert oriented. HEENT exam, elevated JVD at about 7-8 cm. Neck is supple no facial asymmetry Lungs are clear to auscultation good air entry bilaterally Heart sounds unremarkable Abdomen soft nontender no organomegaly ascites masses Extremity exam was lymphedema chronically with bilateral bandages. Edema extends up to the thighs. Neurologically awake and alert oriented. Results - Lab Results Most recent lab results Calcium 8.8 mg/dL (8.4-10.2) 03/18/22 06:19 Phosphorus 4.4 mg/dL (2.5-4.5) 03/18/22 06:19 Magnesium 1.6 mg/dL (1.6-2.3) 03/18/22 06:19 03/18/22 06:19 03/18/22 06:19 Assessment and Plan Plan: impression 1. Acute kidney injury secondary to prerenal factors, from nonsteroidal as well as low intake and medication including diuretics and antihypertensive medication including amlodipine. 2. Chronic severe lymphedema chronic postop uterine cancer surgery and radiation, worsening recently. Some element of amlodipine additionally causing edema hyperkalemia secondary to 3. Hyperkalemia secondary to losartan and Celebrex, rule out outlet obstruction 4. History of uterine cancer in remission, status post surgery and radiation with lymphedema. 5. Mild non-gap acidosis bicarb is 21 with a gap of 10. 6. Anemia hemoglobin is 7 rule out an deficiency Accommodation 1. Hold off any amlodipine or other afterload reducers because of the potential to cause edema. 2. Gentle diuresis as needed to reduce the lymphedema 3. Check bladder scan to ensure there is no outlet obstruction. 4. Will check ultrasound of the kidney to ensure there is no obstruction 5. Check labs again tomorrow including iron and TIBC . Thank you for this consultation will continue to follow
[2022-03-18] MEDS ORDERED: ALBUTEROL NEBULIZED 2.5 MG/3 ML INHALATION PRN ×2 (14:21→14:44)
--- NOTE | 2022-03-18 14:33 | P.HPIM ---
History of Present Illness 86-year-old female was brought in because of bilateral lower extremity lymphedema and open sores. Patient is also found to be in acute renal failure with creatinine of around 1.45 baseline is around 0.8. Patient doesn't have any fever or leukocytosis. Nephrology evaluated the patient patient does take Lasix at home. REVIEW OF SYSTEMS: CONSTITUTIONAL: No fever, no malaise, no fatigue. HEENT: No recent visual problems or hearing problems. Denied any sore throat. CARDIOVASCULAR: No chest pain, orthopnea, PND, no palpitations, no syncope. PULMONARY: No shortness of breath, no cough, no hemoptysis. GASTROINTESTINAL: No diarrhea, no nausea, no vomiting, no abdominal pain. NEUROLOGICAL: No headaches, no weakness, no numbness. HEMATOLOGICAL: Denies any bleeding or petechiae. GENITOURINARY: Denies any burning micturition, frequency, or urgency. MUSCULOSKELETAL/RHEUMATOLOGICAL: Denies any joint pain, swelling, or any muscle pain. ENDOCRINE: Denies any polyuria or polydipsia. The rest of the 14-point review of systems is negative. PHYSICAL EXAMINATION: GENERAL: The patient is alert and oriented x3, not in any acute distress. Well developed, well nourished. HEENT: Pupils are round and equally reacting to light. EOMI. No scleral icterus. No conjunctival pallor. Normocephalic, atraumatic. No pharyngeal erythema. No thyromegaly. CARDIOVASCULAR: S1 and S2 present. No murmurs, rubs, or gallops. PULMONARY: Chest is clear to auscultation, no wheezing or crackles. ABDOMEN: Soft, nontender, nondistended, normoactive bowel sounds. No palpable organomegaly. MUSCULOSKELETAL: No joint swelling or deformity. EXTREMITIES: No cyanosis, clubbing, or pedal edema. NEUROLOGICAL: Gross neurological examination did not reveal any focal deficits. SKIN: Excessive but her bilateral lower extremities with skin breakdown possibly of cellulitis Assessment and plan -Possible bilateral lower extremity cellulitis multiple ulcerations lymphedema: Atrial fibrillation will be started on ceftezole with local wound care infectious disease will be consulted. -Acute renal failure secondary to diuretics for a lymphedema, Celebrex will discuss reviewed ultrasound of the kidneys being obtain nephrology evaluated the patient and her chronic severe lymphedema bilateral lower extremity status post can cancel radiation therapy in the past -Hypertension patient is presently hypotensive hold off all activities medica tions amlodipine may be contributing bilateral lower extremity edema -Hyperkalemia secondary to Rocephin which is being held as well -Non-anion gap metabolic acidosis secondary to renal failure -Proximal atrial fibrillation on the chest recent DVT prophylaxis: Patient is on eliquis at home which will be continued Past Medical History Past Medical History: Atrial Fibrillation, Cancer, GERD/Reflux, Hyperlipidemia, Hypertension, Osteoarthritis (OA), Syncope Additional Past Medical History / Comment(s): uterine cancer 14 yrs. ago, surg. & radiation, IGT,chronic dependent edema left leg-leg wrapped, VARICOSE VEINS, urinary incontinence, recent admission to [facility] for fall & syncope History of Any Multi-Drug Resistant Organisms: None Reported Past Surgical History: Bowel Resection, Hysterectomy, Tonsillectomy Additional Past Surgical History / Comment(s): lung surgery left thoracotomy negative for lung mass 2007?, SMALL VAGINAL MASS REMOVED, COLONOSCOPY,ELISEO CATARACT. Past Anesthesia/Blood Transfusion Reactions: No Reported Reaction Past Psychological History: No Psychological Hx Reported Smoking Status: Former smoker Past Alcohol Use History: Occasional Additional Past Alcohol Use History / Comment(s): SMOKED FOR 5 YEARS IN HER EARLY 30'S THEN QUIT Past Drug Use History: None Reported - Past Family History Father Family Medical History: Coronary Artery Disease (CAD) Mother Family Medical History: Coronary Artery Disease (CAD) Brother(s) Family Medical History: Cancer Son(s) Family Medical History: Respiratory Disorder Medications and Allergies Home Medications Medication Instructions Recorded Confirmed Type Aspirin 81 mg PO W/SUPPER 05/10/15 03/18/22 History Atorvastatin Calcium [Lipitor] 10 mg PO DAILY 05/10/15 03/18/22 History cloNIDine HCL [Catapres] 0.1 tab PO TID 02/08/16 03/18/22 History Baclofen [Lioresal] 5 mg PO Q6H PRN 04/24/19 03/18/22 History Celecoxib [CeleBREX] 200 mg PO DAILY 04/24/19 03/18/22 History Latanoprost Ophth [Xalatan 0.005%] 1 drop BOTH EYES HS 04/24/19 03/18/22 History Multivitamins, Thera [Multivitamin 1 tab PO W/LUNCH 04/24/19 03/18/22 History (formulary)] Acetaminophen Tab [Tylenol Tab] 500 mg PO Q6H PRN 03/18/22 03/18/22 History Albuterol Sulfate [Proair 2 puff INHALATION RT-Q4H PRN 03/18/22 03/18/22 History Respiclick] Apixaban [Eliquis] 2.5 mg PO BID 03/18/22 03/18/22 History Calcium Carbonate 500 mg PO W/LUNCH 03/18/22 03/18/22 History Cholecalciferol (Vitamin D3) 125 mcg PO W/LUNCH 03/18/22 03/18/22 History [Vitamin D3 (125 MCG = 5,000 IU)] Dorzolamide-Timol 2.23%/0.68% 1 drop BOTH EYES BID 03/18/22 03/18/22 History [Cosopt] Furosemide [Lasix] 40 mg PO DAILY 03/18/22 03/18/22 History Losartan Potassium 100 mg PO DAILY 03/18/22 03/18/22 History Melatonin 5 - 10 mg PO HS 03/18/22 03/18/22 History Metoprolol Succinate (ER) [Toprol 50 mg PO DAILY 03/18/22 03/18/22 History Xl] Pantoprazole [Protonix] 40 mg PO DAILY 03/18/22 03/18/22 History Sennosides/Docusate Sodium [Senna 1 - 2 tab PO HS 03/18/22 03/18/22 History Plus 8.6-50 mg Softgel] Silver Sulfadiazine [SSD 1% Cream] 1 applic TOPICAL DAILY 03/18/22 03/18/22 History Spironolactone [Aldactone] 12.5 mg PO DAILY 03/18/22 03/18/22 History hydrALAZINE HCL [Apresoline] 50 mg PO BID 03/18/22 03/18/22 History Allergies Allergy/AdvReac Type Severity Reaction Status Date / Time No Known Allergies Allergy Verified 03/18/22 11:02 Physical Exam Vitals: Vital Signs Temp Pulse Pulse Resp BP BP Pulse Ox 03/18/22 07:00 97.6 F 63 16 125/61 96 03/18/22 02:00 98.2 F 58 L 17 94/55 99 03/17/22 23:30 97.7 F 65 16 96/58 99 03/17/22 22:57 62 16 125/60 97 03/17/22 19:50 98 F 60 18 103/50 98 Intake and Output 03/17/22 03/18/22 03/18/22 22:59 06:59 14:59 Intake Total 520 Balance 520 Intake: Oral 520 Other: Voiding Method Bedside Commode # Voids 4 # Bowel Movements 1 Weight 67.132 kg Results CBC & Chem 7: 03/18/22 06:19 03/18/22 06:19 Labs: Abnormal Lab Results - Last 24 Hours (Table) 03/17/22 03/17/22 03/18/22 Range/Units 20:39 20:39 06:19 RBC 2.39 L 2.25 L (3.80-5.40) m/uL Hgb 7.4 L 7.0 L (11.4-16.0) gm/dL Hct 25.1 L 23.9 L (34.0-46.0) % MCV 105.3 H 106.2 H (80.0-100.0) fL MCHC 29.4 L 29.3 L (31.0-37.0) g/dL RDW 19.8 H 19.7 H (11.5-15.5) % Lymphocytes # 0.8 L 0.9 L (1.0-4.8) k/uL Macrocytosis Marked A Marked A Potassium 5.5 H (3.5-5.1) mmol/L Chloride (98-107) mmol/L Carbon Dioxide 21 L (22-30) mmol/L BUN 106 H* (7-17) mg/dL Creatinine 1.66 H (0.52-1.04) mg/dL Glucose 147 H (74-99) mg/dL 03/18/22 Range/Units 06:19 RBC (3.80-5.40) m/uL Hgb (11.4-16.0) gm/dL Hct (34.0-46.0) % MCV (80.0-100.0) fL MCHC (31.0-37.0) g/dL RDW (11.5-15.5) % Lymphocytes # (1.0-4.8) k/uL Macrocytosis Potassium (3.5-5.1) mmol/L Chloride 109 H (98-107) mmol/L Carbon Dioxide 21 L (22-30) mmol/L BUN 94 H (7-17) mg/dL Creatinine 1.55 H (0.52-1.04) mg/dL Glucose (74-99) mg/dL Thrombosis Risk Factor Assmnt - Choose All That Apply Any of the Below Risk Factors Present?: Yes Each Factor Represents 1 point: Obesity (BMI >25) Other Risk Factors: Yes Each Risk Factor Represents 3 Points: Age 75 years or older Other congenital or acquired thrombophilia - If yes, enter type in comment: No Thrombosis Risk Factor Assessment Total Risk Factor Score: 4 Thrombosis Risk Factor Assessment Level: Moderate Risk
[2022-03-18] MEDS: ACETAMINOPHEN TAB 500 MG TAB PO PRN (14:57)
[2022-03-18] MEDS: ASPIRIN 81 MG PO SCH (14:59)
--- NOTE | 2022-03-18 15:25 | US ---
EXAMINATION TYPE: US kidneys/renal and bladder DATE OF EXAM: 03/18/2022 COMPARISON: CT CLINICAL HISTORY: ZAC. ZAC EXAM MEASUREMENTS: Right Kidney: 9.7 x 4.4 x 4.4 cm Left Kidney: 8.6 x 3.7 x 5.1 cm Right Kidney: No hydronephrosis or masses seen Left Kidney: Appears slightly small in size. Complex area seen upper pole: 1.9 x 1.3 x 1.6 cm. Bladder: Appears anechoic. Bilateral Jets seen: No, limitations to evaluation due to artifact with movement. IMPRESSION: No hydronephrosis. 1.9 cm complex cyst upper pole left kidney. This is likely unchanged compared to t he CT scan of 06/27/2018. No evidence of bladder mass.
[2022-03-18 18:20] LABS: % Iron Saturation 11.94 (12.00-45.00)
[2022-03-18] MEDS: SENNOSIDES-DOCUSATE SODIUM 1 EACH TAB PO SCH (19:54)
[2022-03-18] MEDS: APIXABAN 2.5 MG TABLET PO SCH (19:54)
[2022-03-18] MEDS: FAMOTIDINE 20 MG TAB PO SCH (19:54)
[2022-03-18] MEDS: DORZOLAMIDE-TIMOLOL 2.23%/0.68 10ML BTL BOTH EYES SCH (19:55)
[2022-03-18] MEDS: BACLOFEN 10 MG TAB PO SCH (19:55)
[2022-03-18] MEDS: LATANOPROST 0.005% OPHTH DROPS 2.5 ML BTL BOTH EYES SCH (19:55)
--- NOTE | 2022-03-19 10:34 | P.PN ---
Subjective Progress Note Date: 03/19/22 Principal diagnosis: This is a 86-year-old female seen in consultation because of acute kidney injury, edema, hyperkalemia, non-gap acidosis, secondary to combination of nonsteroidals low intake diuretics that were being used for lymphedema. A bladder scan was unremarkable. An ultrasound the kidney shows 9.7 cm and 8.6 cm kidney size no hydronephrosis. She is known with uterine cancer with radiation and chemotherapy, atrial fibrillation, chronic lymphedema. She had some open areas therefore possibly had some amount of cellulitis for which she is on antibiotics This morning she is feeling better less edema. Able to walk without any dizziness. Vital signs are stable blood pressure 100 systolic to 145/81 afebrile. Intake and output not accurately documented. Creatinine improved to 1.55, from 1.66. Last today are pending. Baseline creatinine not available recently, creatinine though was 0.8 on 09/22/2019. Objective - Vital Signs Vital signs: Vital Signs Temp 98.4 F 03/19/22 07:58 Pulse 84 03/19/22 07:58 Resp 17 03/19/22 07:58 BP 145/81 03/19/22 07:58 Pulse Ox 97 03/19/22 07:58 FiO2 Intake & Output 03/18/22 03/19/22 03/19/22 18:59 06:59 18:59 Intake Total 520 Balance 520 Intake: Oral 520 Other: Voiding Method Bedside Commode # Voids 1 1 # Bowel Movements 1 On examination is awake alert oriented. HEENT exam, elevated JVD at about 7-8 cm. Neck is supple no facial asymmetry Lungs are clear to auscultation good air entry bilaterally Heart sounds unremarkable Abdomen soft nontender no organomegaly ascites masses Extremity exam was lymphedema chronically with bilateral bandages. Edema exte nds up to the thighs. Neurologically awake and alert oriented. - Labs CBC & Chem 7: 03/18/22 06:19 03/18/22 06:19 Labs: Abnormal Lab Results - Last 24 Hours (Table) 03/18/22 Range/Units 06:19 Iron 43 L (50-170) ug/dL % Saturation 11.94 L (12.00-45.00) Assessment and Plan Plan: impression 1. Acute kidney injury secondary to prerenal factors, from nonsteroidal as well as low intake and medication including diuretics and antihypertensive medication including amlodipine. Creatinine improved. Ultrasound shows unequal kidney size 9.7 and 8.6 suggestive of some renovascular disease possibly 2. Chronic severe lymphedema chronic postop uterine cancer surgery and radiation, worsening recently. Some element of amlodipine additionally causing edema. Off of amlodipine 3. Hyperkalemia secondary to losartan and Celebrex, rule out outlet obstruction. Resolved 4. History of uterine cancer in remission, status post surgery and radiation with lymphedema. 5. Mild non-gap acidosis bicarb is 21 with a gap of 10. 6. Anemia hemoglobin is 7 7. Iron deficiency saturation is 11% on 03/18/2022 Accommodation 1. IV Ferrlecit 125 mg daily for 3 doses 2. Avoid any antihypertensive that are prone to cause edema such as amlodipine Procardia and other calcium channel blockers and afterload reducers 3. Once the creatinine is improved we can try some gentle diuresis with torsemide 10 mg 20 mg under careful monitoring
[2022-03-19] MEDS: BACLOFEN 10 MG TAB PO SCH ×2 (10:43→20:04)
[2022-03-19] MEDS: ATORVASTATIN 10 MG TAB PO SCH (10:44)
[2022-03-19] MEDS: APIXABAN 2.5 MG TABLET PO SCH ×2 (10:44→20:04)
[2022-03-19] MEDS: METOPROLOL SUCCINATE (ER) 50 MG TAB.ER.24H PO SCH (10:44)
[2022-03-19] MEDS: SILVER sulfADIAZINE Cream 400 GM 1 APPLIC APPLIC TOPICAL SCH (10:45)
[2022-03-19] MEDS: DORZOLAMIDE-TIMOLOL 2.23%/0.68 10ML BTL BOTH EYES SCH ×2 (10:45→20:05)
[2022-03-19] MEDS: SODIUM FERRIC GLUCONAT-SUCROSE 125 MG in SODIUM CHLORIDE 0.9% 100 ML IVPB SCH (11:33)
--- NOTE | 2022-03-19 14:03 | P.PN ---
Subjective 86-year-old female was brought in because of bilateral lower extremity lymphedema and open sores. Patient is also found to be in acute renal failure with creatinine of around 1.45 baseline is around 0.8. Patient doesn't have any fever or leukocytosis. Nephrology evaluated the patient patient does take Lasix at home. 03/19/2022 Patient's creatinine remained stable but didn't improve. Infectious disease will evaluate for chronic venous stasis and skin breakdown possibility of infection is low. Physical therapy and occupational therapy evaluation patient is receiving therapeutic clinic today. Constitutional: Denied any fatigue denied any fever. Cardio vascular: denied any chest pain, palpitations Gastrointestinal denied any nausea vomiting Pulmonary: Denied any shortness of breath cough Neurologic denied any new focal deficits All inpatient medications were reviewed and appropriate changes in these medications as dictated in the interval history and assessment and plan. PHYSICAL EXAMINATION: GENERAL: The patient is alert and oriented x3, not in any acute distress. Well developed, well nourished. HEENT: Pupils are round and equally reacting to light. EOMI. No scleral icterus. No conjunctival pallor. Normocephalic, atraumatic. No pharyngeal erythema. No thyromegaly. CARDIOVASCULAR: S1 and S2 present. No murmurs, rubs, or gallops. PULMONARY: Chest is clear to auscultation, no wheezing or crackles. ABDOMEN: Soft, nontender, nondistended, normoactive bowel sounds. No palpable organomegaly. MUSCULOSKELETAL: No joint swelling or deformity. EXTREMITIES: No cyanosis, clubbing, or pedal edema. NEUROLOGICAL: Gross neurological examination did not reveal any focal deficits. SKIN: Excessive but her bilateral lower extremities with skin breakdown possibly of cellulitis Assessment and plan -Possible bilateral lower extremity cellulitis multiple ulcerations lymphedema: patient is on ceftezolin with local wound care infectious disease was consulted. -Acute renal failure secondary to diuretics for a lymphedema, Celebrex and amlodipine were discontinued OF THE KIDNEY SHOWED SOME CHRONIC KIDNEY DISEASE reviewed ultrasound of the kidneys being obtain nephrology evaluated the patient and her chronic severe lymphedema bilateral lower extremity status post uterine cancer andradiation therapy in the past -Hypertension patient is presently hypotensive hold off all antihypertensive medications amlodipine may be contributing bilateral lower extremity edema -Hyperkalemia secondary to Rocephin which is being held as well -Non-anion gap metabolic acidosis secondary to renal failure -paroxysmal atrial fibrillation on the chest recent DVT prophylaxis: Patient is on eliquis at home which will be continued Objective - Vital Signs Vital signs: Vital Signs Temp 98.4 F 03/19/22 07:58 Pulse 84 03/19/22 07:58 Resp 17 03/19/22 07:58 BP 145/81 03/19/22 07:58 Pulse Ox 97 03/19/22 07:58 FiO2 Intake & Output 03/18/22 03/19/22 03/19/22 18:59 06:59 18:59 Intake Total 520 150 Balance 520 150 Intake: Intake, IV Titration 150 Amount Sodium Ferric Gluconat- 100 Sucrose 125 mg In Sodium Chloride 0.9% 100 ml @ 100 mls/hr IVPB DAILY [facility] Rx#:[id number] ceFAZolin 2 gm In Sodium 50 Chloride 0.9% 50 ml @ 100 mls/hr IVPB Q12HR [facility] Rx #:[id number] Oral 520 Other: Voiding Method Bedside Commode # Voids 1 1 # Bowel Movements 1 - Labs CBC & Chem 7: 03/18/22 06:19 03/18/22 06:19 Labs: Abnormal Lab Results - Last 24 Hours (Table) 03/18/22 Range/Units 06:19 Iron 43 L (50-170) ug/dL % Saturation 11.94 L (12.00-45.00)
[2022-03-19] MEDS: ASPIRIN 81 MG PO SCH (17:21)
[2022-03-19] MEDS: FAMOTIDINE 20 MG TAB PO SCH (20:04)
[2022-03-19] MEDS: SENNOSIDES-DOCUSATE SODIUM 1 EACH TAB PO SCH (20:04)
[2022-03-19] MEDS: LATANOPROST 0.005% OPHTH DROPS 2.5 ML BTL BOTH EYES SCH (20:05)
--- NOTE | 2022-03-19 22:26 | P.CONS ---
History of Present Illness - Reason for Consult Consult date: 03/19/22 Cellulitis and lymphedema Requesting physician: Diomedes Cartwright - Chief Complaint Increasing swelling redness to the left leg x few days - History of Present Illness Patient is 86-year-old female with a past medical history significant for atrial fibrillation hypertension hyperlipidemia GERD history of uterine cancer and did have a surgical treatment with subsequent development of lymphedema especially to the left lower extremity, patient mentions she has been advised wrapping the leg to keep the swelling down however the patient noticed to have increasing swelling redness to the left lower extremity that has been getting worse for the last week or so patient has a history of any trauma patient complaining of diffuse swelling and redness has been complaining of some sharp pain intensity 7-8 out of 10 and no radiation patient denies having any foul-smelling drainage did have some chills but denies high-grade fever, patient presented to the hospital was afebrile and no fever has been recorded subsequently, patient did have a normal white count, BUN and creatinine has been mildly elevated chest x-ray today shows cardiomegaly no heart failure, patient was started on cefazolin infectious disease was consulted for further management of antibiotic therapy Review of Systems Positive point has been mentioned in the HPI rest of the systems are negative Past Medical History Past Medical History: Atrial Fibrillation, Cancer, GERD/Reflux, Hyperlipidemia, Hypertension, Osteoarthritis (OA), Syncope Additional Past Medical History / Comment(s): uterine cancer 14 yrs. ago, surg. & radiation, IGT,chronic dependent edema left leg-leg wrapped, VARICOSE VEINS, urinary incontinence, recent admission to [facility] for fall & syncope History of Any Multi-Drug Resistant Organisms: None Reported Past Surgical History: Bowel Resection, Hysterectomy, Tonsillectomy Additional Past Surgical History / Comment(s): lung surgery left thoracotomy negative for lung mass 2007?, SMALL VAGINAL MASS REMOVED, COLONOSCOPY,ELISEO CATARACT. Past Anesthesia/Blood Transfusion Reactions: No Reported Reaction Past Psychological History: No Psychological Hx Reported Smoking Status: Former smoker Past Alcohol Use History: Occasional Additional Past Alcohol Use History / Comment(s): SMOKED FOR 5 YEARS IN HER EARLY 30'S THEN QUIT Past Drug Use History: None Reported - Past Family History Father Family Medical History: Coronary Artery Disease (CAD) Mother Family Medical History: Coronary Artery Disease (CAD) Brother(s) Family Medical History: Cancer Son(s) Family Medical History: Respiratory Disorder Medications and Allergies Home Medications Medication Instructions Recorded Confirmed Type Aspirin 81 mg PO W/SUPPER 05/10/15 03/18/22 History Atorvastatin Calcium [Lipitor] 10 mg PO DAILY 05/10/15 03/18/22 History Latanoprost Ophth [Xalatan 0.005%] 1 drop BOTH EYES HS 04/24/19 03/18/22 History Multivitamins, Thera [Multivitamin 1 tab PO W/LUNCH 04/24/19 03/18/22 History (formulary)] Acetaminophen Tab [Tylenol] 500 mg PO Q6H PRN 03/18/22 03/18/22 History Albuterol Sulfate [Proair 2 puff INHALATION RT-Q4H PRN 03/18/22 03/18/22 History Respiclick] Apixaban [Eliquis] 2.5 mg PO BID 03/18/22 03/18/22 History Calcium Carbonate 500 mg PO W/LUNCH 03/18/22 03/18/22 History Cholecalciferol (Vitamin D3) 125 mcg PO W/LUNCH 03/18/22 03/18/22 History [Vitamin D3 (125 MCG = 5,000 IU)] Dorzolamide-Timol 2.23%/0.68% 1 drop BOTH EYES BID 03/18/22 03/18/22 History [Cosopt] Losartan Potassium 100 mg PO DAILY 03/18/22 03/18/22 History Melatonin 5 - 10 mg PO HS 03/18/22 03/18/22 History Metoprolol Succinate (ER) [Toprol 50 mg PO DAILY 03/18/22 03/18/22 History XL] Pantoprazole [Protonix] 40 mg PO DAILY 03/18/22 03/18/22 History Sennosides/Docusate Sodium [Senna 1 - 2 tab PO HS 03/18/22 03/18/22 History Plus 8.6-50 mg Softgel] Silver Sulfadiazine [SSD 1% Cream] 1 applic TOPICAL DAILY 03/18/22 03/18/22 History Baclofen [Lioresal] 5 mg PO BID #0 03/21/22 03/18/22 Rx Cephalexin [Keflex] 500 mg PO Q8HR 10 Days #30 cap 03/21/22 Rx Magnesium Oxide [Mag-Ox] 400 mg PO DAILY 30 Days #30 tab 03/21/22 Rx Torsemide [Demadex] 20 mg PO DAILY 30 Days #30 tab 03/21/22 Rx Allergies Allergy/AdvReac Type Severity Reaction Status Date / Time No Known Allergies Allergy Verified 03/18/22 11:02 Physical Exam Vitals: Vital Signs Temp Pulse Resp BP Pulse Ox 03/19/22 07:58 98.4 F 84 17 145/81 97 03/19/22 00:28 98.5 F 72 15 100/51 95 03/18/22 19:22 98.0 F 64 14 125/60 95 03/18/22 17:11 97.8 F 68 16 125/78 98 Intake and Output 03/18/22 03/19/22 03/19/22 22:59 06:59 14:59 Intake Total 150 Balance 150 Intake: Intake, IV Titration 150 Amount Sodium Ferric Gluconat- 100 Sucrose 125 mg In Sodium Chloride 0.9% 100 ml @ 100 mls/hr IVPB DAILY [facility] Rx#:[id number] ceFAZolin 2 gm In Sodium 50 Chloride 0.9% 50 ml @ 100 mls/hr IVPB Q12HR [facility] Rx #:[id number] Other: # Voids 1 1 # Bowel Movements 1 GENERAL DESCRIPTION: Elderly female lying in bed, no distress. No tachypnea or accessory muscle of respiration use. HEENT: Shows Pallor , no scleral icterus. Oral mucous membrane is dry. No pharyngeal erythema or thrush NECK: Trachea central, no thyromegaly. LUNGS: Unlabored breathing. Clear to auscultation anteriorly. No wheeze or crackle. HEART: S1, S2, regular rate and rhythm. No loud murmur ABDOMEN: Soft, no tenderness , guarding or rigidity, no organomegaly EXTREMITIES: Diffuse swelling redness to left lower extremity open wound or any purulent drainage. SKIN: No rash, no masses palpable. NEUROLOGICAL: The patient is awake, alert, oriented x3, mood and affect normal. Results CBC & Chem 7: 03/20/22 10:18 03/21/22 04:13 Labs: Abnormal Lab Results - Last 24 Hours (Table) 03/18/22 Range/Units 06:19 Iron 43 L (50-170) ug/dL % Saturation 11.94 L (12.00-45.00) Assessment and Plan (1) Left leg cellulitis Status: Acute Code(s): L03.116 - CELLULITIS OF LEFT LOWER LIMB SNOMED Code(s): 249872399 Plan: 1patient with chronic lymphedema to the left lower extremity in this patient with a history of uterine cancer status post surgical treatment now presented to hospital with increasing swelling redness to the left leg concerning for cellulitis likely from gram-positive skin isha. 2patient with renal insufficiency and high risk of nephrotoxicity 3patient to continue with the cefazolin 2 g every 12 [place] was has been adjusted to the kidney function 4Ace wrap to the leg to keep the swelling down We will follow on clinical condition and cultures to further adjust medication if needed Thank you for this consultation will follow this patient with you Time with Patient: Greater than 30
[2022-03-20] MEDS: SODIUM FERRIC GLUCONAT-SUCROSE 125 MG in SODIUM CHLORIDE 0.9% 100 ML IVPB SCH (08:57)
[2022-03-20] MEDS: APIXABAN 2.5 MG TABLET PO SCH ×2 (08:57→21:00)
[2022-03-20] MEDS: ATORVASTATIN 10 MG TAB PO SCH (08:57)
[2022-03-20] MEDS: METOPROLOL SUCCINATE (ER) 50 MG TAB.ER.24H PO SCH (08:58)
[2022-03-20] MEDS: SILVER sulfADIAZINE Cream 400 GM 1 APPLIC APPLIC TOPICAL SCH (08:58)
[2022-03-20] MEDS: DORZOLAMIDE-TIMOLOL 2.23%/0.68 10ML BTL BOTH EYES SCH ×2 (08:58→21:00)
[2022-03-20] MEDS: BACLOFEN 10 MG TAB PO SCH ×2 (08:58→21:00)
[2022-03-20 11:18] LABS: African American GFR (CKD) 75 (>60 ml/min/1.73 sqM); Anion Gap 7 mmol/L; Blood Urea Nitrogen 30 mg/dL (7-17); Calcium 8.4 mg/dL (8.4-10.2); Carbon Dioxide 22 mmol/L (22-30); Chloride 111 mmol/L (98-107); Glucose 245 mg/dL (74-99); Magnesium 1.7 mg/dL (1.6-2.3); Non-African American GFR(CKD) 65 (>60 ml/min/1.73 sqM); Potassium 3.8 mmol/L (3.5-5.1); Sodium 140 mmol/L (137-145)
[2022-03-20 11:46] LABS: Anisocytosis Moderate; Basophils % (A) 1 %; Eosinophils # (A) 0.2 k/uL (0-0.7); Eosinophils % (A) 2 %; HCT 25.2 % (34.0-46.0); HGB 7.3 gm/dL (11.4-16.0); Hypochromasia Marked; Lymphocytes # (A) 0.8 k/uL (1.0-4.8); Lymphocytes % (A) 10 %; MCH 31.8 pg (25.0-35.0); MCHC 28.9 g/dL (31.0-37.0); MCV 110.1 fL (80.0-100.0); Macrocytosis Marked; Mean Platelet Volume 9.6; Monocytes # (A) 0.4 k/uL (0-1.0); Monocytes % (A) 5 %; Neutrophils # (A) 6.2 k/uL (1.3-7.7); Neutrophils % (A) 81 %; Platelet Count 299 k/uL (150-450); RBC 2.29 m/uL (3.80-5.40); RDW 20.4 % (11.5-15.5); WBC 7.6 k/uL (3.8-10.6)
--- NOTE | 2022-03-20 12:16 | P.PN ---
Subjective Progress Note Date: 03/20/22 Principal diagnosis: Left lower extremity cellulitis Patient is 86-year-old female with a past medical history significant for atrial fibrillation hypertension hyperlipidemia GERD history of uterine cancer and did have a surgical treatment with subsequent development of lymphedema especially to the left lower extremity, presented to hospital with increasing swelling redness to left leg along with weakness concerning for cellulitis. On today's evaluation that is 03/20/2022, the patient denies having any fever or any chills feeling slightly better today left leg pain and swelling has slightly decreased no chest pain shortness of breath or cough no abdominal pain or diarrhea Objective - Vital Signs Vital signs: Vital Signs Temp 98.5 F 03/20/22 06:50 Pulse 71 03/20/22 07:20 Resp 18 03/20/22 07:20 BP 150/88 03/20/22 06:50 Pulse Ox 97 03/20/22 06:50 FiO2 Intake & Output 03/19/22 03/20/22 03/20/22 18:59 06:59 18:59 Intake Total 150 Balance 150 Intake: Intake, IV Titration 150 Amount Sodium Ferric Gluconat- 100 Sucrose 125 mg In Sodium Chloride 0.9% 100 ml @ 100 mls/hr IVPB DAILY [facility] Rx#:[id number] ceFAZolin 2 gm In Sodium 50 Chloride 0.9% 50 ml @ 100 mls/hr IVPB Q12HR [facility] Rx #:[id number] Other: Voiding Method Toilet Toilet # Voids 5 6 # Bowel Movements 1 - Exam GENERAL DESCRIPTION: An elderly female lying in bed in no distress RESPIRATORY SYSTEM: Unlabored breathing , decreased breath sounds at bases HEART: S1 S2 regular rate and rhythm , ABDOMEN: Soft , no tenderness EXTREMITIES: Left leg is currently covered with Chris wrap no drainage on the dressing - Labs CBC & Chem 7: 03/20/22 10:18 03/20/22 10:18 Labs: Abnormal Lab Results - Last 24 Hours (Table) 03/20/22 03/20/22 Range/Units 10:18 10:18 RBC 2.29 L (3.80-5.40) m/uL Hgb 7.3 L (11.4-16.0) gm/dL Hct 25.2 L (34.0-46.0) % MCV 110.1 H (80.0-100.0) fL MCHC 28.9 L (31.0-37.0) g/dL RDW 20.4 H (11.5-15.5) % Lymphocytes # 0.8 L (1.0-4.8) k/uL Macrocytosis Marked A Chloride 111 H (98-107) mmol/L BUN 30 H (7-17) mg/dL Glucose 245 H (74-99) mg/dL Assessment and Plan (1) Left leg cellulitis Current Visit: Yes Status: Acute Code(s): L03.116 - CELLULITIS OF LEFT LOWER LIMB SNOMED Code(s): 249274363 Plan: 1patient with chronic lymphedema to the left lower extremity in this patient with a history of uterine cancer status post surgical treatment now presented to hospital with increasing swelling redness to the left leg concerning for cellulitis likely from gram-positive skin isha. 2patient with renal insufficiency and high risk of nephrotoxicity 3patient to continue with Chris wrap to the leg to keep the swelling down 4patient to continue with cefazolin while inpatient and hopefully finishing therapy with oral antibiotics Time with Patient: Less than 30
[2022-03-20 13:21] VITALS: BMI 30.9
--- NOTE | 2022-03-20 14:05 | P.PN ---
Subjective This is a 86-year-old female seen in consultation because of acute kidney injury, edema, hyperkalemia, non-gap acidosis, secondary to combination of nonsteroidals low intake diuretics that were being used for lymphedema. Renal function has improved. No complaints. Creatinine improved to 0.8 today. Objective - Vital Signs Vital signs: Vital Signs Temp 98.5 F 03/20/22 06:50 Pulse 71 03/20/22 07:20 Resp 18 03/20/22 07:20 BP 150/88 03/20/22 06:50 Pulse Ox 97 03/20/22 06:50 FiO2 Intake & Output 03/19/22 03/20/22 03/20/22 18:59 06:59 18:59 Intake Total 150 Balance 150 Weight 67.132 kg Intake: Intake, IV Titration 150 Amount Sodium Ferric Gluconat- 100 Sucrose 125 mg In Sodium Chloride 0.9% 100 ml @ 100 mls/hr IVPB DAILY [facility] Rx#:[id number] ceFAZolin 2 gm In Sodium 50 Chloride 0.9% 50 ml @ 100 mls/hr IVPB Q12HR [facility] Rx #:[id number] Other: Voiding Method Toilet Toilet # Voids 5 6 # Bowel Movements 1 - Exam Awake, comfortable No distress. Lungs are clear. Heart sounds are heard Abdomen is soft, non tender, obese Lower extremities are wrapped. Significant edema noted. DRAFTER DIRECTIONAL SURVEY exam is grossly intact. - Labs CBC & Chem 7: 03/20/22 10:18 03/20/22 10:18 Labs: Abnormal Lab Results - Last 24 Hours (Table) 03/20/22 03/20/22 Range/Units 10:18 10:18 RBC 2.29 L (3.80-5.40) m/uL Hgb 7.3 L (11.4-16.0) gm/dL Hct 25.2 L (34.0-46.0) % MCV 110.1 H (80.0-100.0) fL MCHC 28.9 L (31.0-37.0) g/dL RDW 20.4 H (11.5-15.5) % Lymphocytes # 0.8 L (1.0-4.8) k/uL Macrocytosis Marked A Chloride 111 H (98-107) mmol/L BUN 30 H (7-17) mg/dL Glucose 245 H (74-99) mg/dL Assessment and Plan Assessment: 1. Acute kidney injury secondary to prerenal factors, from nonsteroidal as well as low intake and medication including diuretics and antihypertensive medication including amlodipine. Creatinine improved. Ultrasound shows unequal kidney size 9.7 and 8.6 suggestive of some renovascular disease possibly 2. Chronic severe lymphedema chronic postop uterine cancer surgery and radiation, worsening recently. Some element of amlodipine additionally causing edema. Off of amlodipine 3. Hyperkalemia secondary to losartan and Celebrex, rule out outlet obstruction. Resolved 4. History of uterine cancer in remission, status post surgery and radiation with lymphedema. 5. Mild non-gap acidosis bicarb is 21 with a gap of 10. 6. Anemia hemoglobin is 7.3 7. Iron deficiency saturation is 11% on 03/18/2022, receiving IV iron. Plan: Resume diuretics. If BP remains elevated, can restart ARBs as well.
[2022-03-20] MEDS: TORSEMIDE 20 MG TAB PO SCH (18:53)
[2022-03-20] MEDS: ASPIRIN 81 MG PO SCH (18:53)
[2022-03-20] MEDS: FAMOTIDINE 20 MG TAB PO SCH (21:00)
[2022-03-20] MEDS: SENNOSIDES-DOCUSATE SODIUM 1 EACH TAB PO SCH (21:01)
[2022-03-20] MEDS: LATANOPROST 0.005% OPHTH DROPS 2.5 ML BTL BOTH EYES SCH (21:01)
--- NOTE | 2022-03-21 03:51 | P.PN ---
Subjective Progress Note Date: 03/20/22 86-year-old female was brought in because of bilateral lower extremity lymphedema and open sores. Patient is also found to be in acute renal failure with creatinine of around 1.45 baseline is around 0.8. Patient doesn't have any fever or leukocytosis. Nephrology evaluated the patient patient does take Lasix at home. 03/19/2022 Patient's creatinine remained stable but didn't improve. Infectious disease will evaluate for chronic venous stasis and skin breakdown possibility of infection is low. Physical therapy and occupational therapy evaluation patient is receiving therapeutic clinic today. 03/20/2022 Patient seen and evaluated in follow-up with infectious disease along with nephrology following. Patient is switched to corrected kidney dosing of cefazolin and recommending Chris wraps to lower extremities. Awaiting repeat labs which have been ordered and pending. Nephrology following recommending to continue with torsemide which has been resumed and kidney functions are improving and patient reports improvement in her edema. Strongly recommend elevating lower extremities and continuing with Chris wraps with frequent readjustments as patient continues to have lower extremity swelling. Patient reports there is an improvement from admission. Patient looking for possible discharge in the next 24 hours. Patient is afebrile denies chest pain or shortness of breath. Reports to tolerating diet and oral intake is fair. ReView of systems: Constitutional: Denied any fatigue denied any fever. Cardio vascular: denied any chest pain, palpitations Gastrointestinal denied any nausea vomiting Pulmonary: Denied any shortness of breath cough Neurologic denied any new focal deficits reports some continued leg swelling All inpatient medications were reviewed and appropriate changes in these medications as dictated in the interval history and assessment and plan. PHYSICAL EXAMINATION: GENERAL: The patient is alert and oriented x3, not in any acute distress. Well developed, well nourished. HEENT: Pupils are round and equally reacting to light. EOMI. No scleral icterus. No conjunctival pallor. Normocephalic, atraumatic. No pharyngeal erythema. No thyromegaly. CARDIOVASCULAR: S1 and S2 present. No murmurs, rubs, or gallops. PULMONARY: Chest is clear to auscultation, no wheezing or crackles. ABDOMEN: Soft, nontender, nondistended, normoactive bowel sounds. No palpable organomegaly. MUSCULOSKELETAL: No joint swelling or deformity. EXTREMITIES: No cyanosis, clubbing, bilateral lower extremity edema with some improvement with Chris wraps noted NEUROLOGICAL: Gross neurological examination did not reveal any focal deficits. SKIN: Excessive but her bilateral lower extremities with skin breakdown possibly of cellulitis Assessment: -Possible bilateral lower extremity cellulitis multiple ulcerations secondary to lymphedema: patient is on cefazolin with ID following -Acute renal failure secondary to diuretics for a lymphedema, Celebrex and amlodipine were discontinued -chronic severe lymphedema bilateral lower extremity status post uterine cancer and radiation therapy in the past -Hypertension patient is presently hypotensive hold off all antihypertensive medications amlodipine may be contributing bilateral lower extremity edema -Hyperkalemia secondary to Rocephin, improved -Non-anion gap metabolic acidosis secondary to renal failure -paroxysmal atrial fibrillation -DVT prophylaxis: Patient is on eliquis at home which will be continued -No code Plan: Recommend to continue on medications with nephrology and ID following. Patient is continued on cefazolin with some improvement will continue for now with possible discharge antibiotics in the form of oral Keflex Follow-up on repeat labs as kidney functions are improving Continue with Chris wraps to bilateral lower extremities and frequent position changes and also encourage the patient to elevate lower extremity swelling rest Possible discharge in the next 24 hours The impression and plan of care has been dictated by Krissy Chiu, Nurse Practitioner as directed. Dr. Gabbie MD I have performed a history and examination and MDM of this patient, discussed the same with the dictator, and agree with the dictator's assessment and plan as written ,documented as a scribe. Based on total visit time, I have performed more than 50% of the visit. Objective - Vital Signs Vital signs: Vital Signs Temp 98.5 F 03/20/22 06:50 Pulse 71 03/20/22 07:20 Resp 18 03/20/22 07:20 BP 150/88 03/20/22 06:50 Pulse Ox 97 03/20/22 06:50 FiO2 Intake & Output 03/19/22 03/20/22 03/20/22 18:59 06:59 18:59 Intake Total 150 Balance 150 Intake: Intake, IV Titration 150 Amount Sodium Ferric Gluconat- 100 Sucrose 125 mg In Sodium Chloride 0.9% 100 ml @ 100 mls/hr IVPB DAILY [facility] Rx#:[id number] ceFAZolin 2 gm In Sodium 50 Chloride 0.9% 50 ml @ 100 mls/hr IVPB Q12HR [facility] Rx #:[id number] Other: Voiding Method Toilet Toilet # Voids 5 6 # Bowel Movements 1 - Labs CBC & Chem 7: 03/20/22 10:18 03/20/22 10:18
[2022-03-21] MEDS: ATORVASTATIN 10 MG TAB PO SCH (08:05)
[2022-03-21] MEDS: BACLOFEN 10 MG TAB PO SCH (08:05)
[2022-03-21] MEDS: ACETAMINOPHEN TAB 500 MG TAB PO PRN (08:06)
[2022-03-21] MEDS: METOPROLOL SUCCINATE (ER) 50 MG TAB.ER.24H PO SCH (08:07)
[2022-03-21] MEDS: APIXABAN 2.5 MG TABLET PO SCH (08:07)
[2022-03-21] MEDS: TORSEMIDE 20 MG TAB PO SCH (08:07)
[2022-03-21] MEDS: DORZOLAMIDE-TIMOLOL 2.23%/0.68 10ML BTL BOTH EYES SCH (08:08)
[2022-03-21] MEDS ORDERED: MAGNESIUM OXIDE 400 MG TAB PO SCH (09:00)
[2022-03-21 09:03] LABS: African American GFR (CKD) 76.8 (60.0-200.0); Anion Gap 10.2 mmol/L (10.00-18.00); BUN/Creat Ratio 29.75 Ratio (12.00-20.00); Blood Urea Nitrogen 23.8 mg/dL (9.0-27.0); Calcium 8.3 mg/dL (8.7-10.3); Carbon Dioxide 25.8 mmol/L (20.0-27.5); Non-African American GFR(CKD) 66.3 (60.0-200.0); Potassium 3.2 mmol/L (3.5-5.5)
[2022-03-21] MEDS: SODIUM FERRIC GLUCONAT-SUCROSE 125 MG in SODIUM CHLORIDE 0.9% 100 ML IVPB SCH (09:26)
[2022-03-21] MEDS: SILVER sulfADIAZINE Cream 400 GM 1 APPLIC APPLIC TOPICAL SCH (09:27)
[2022-03-21] MEDS ORDERED: Potassium Replacement Protocol 1 EACH MISC MISCELLANE PRN (12:36)
[2022-03-21] MEDS ORDERED: LOSARTAN 50 MG TAB PO SCH (12:45)
[2022-03-21] MEDS: POTASSIUM CHLORIDE ER 20 MEQ TAB.ER PO SCH ×2 (12:48→13:14)
--- NOTE | 2022-03-21 12:50 | P.PN ---
Subjective This is a 86-year-old female seen in consultation because of acute kidney injury, edema, hyperkalemia, non-gap acidosis, secondary to combination of nonsteroidals low intake diuretics that were being used for lymphedema. Renal function has improved. No complaints. Creatinine improved to 0.8 today. Objective - Vital Signs Vital signs: Vital Signs Temp 97.8 F 03/21/22 10:30 Pulse 63 03/21/22 11:49 Resp 16 03/21/22 10:30 BP 157/64 03/21/22 10:30 Pulse Ox 95 03/21/22 10:30 FiO2 Intake & Output 03/20/22 03/21/22 03/21/22 18:59 06:59 18:59 Intake Total 1080 Balance 1080 Weight 67.132 kg Intake: Oral 1080 Other: Voiding Method Toilet Toilet # Voids 1 1 1 # Bowel Movements 1 - Exam Awake, comfortable No distress. Lungs are clear. Heart sounds are heard Abdomen is soft, non tender, obese Lower extremities are wrapped. Significant edema noted. GENERAL ASSIGNMENT REPORTER exam is grossly intact. - Labs CBC & Chem 7: 03/20/22 10:18 03/21/22 04:13 Labs: Abnormal Lab Results - Last 24 Hours (Table) 03/21/22 Range/Units 04:13 Potassium 3.2 L (3.5-5.5) mmol/L BUN/Creatinine Ratio 29.75 H (12.00-20.00) Ratio Calcium 8.3 L (8.7-10.3) mg/dL Assessment and Plan Assessment: 1. Acute kidney injury secondary to prerenal factors, from nonsteroidal as well as low intake and medication including diuretics and antihypertensive medication including amlodipine. Creatinine improved. Ultrasound shows unequal kidney size 9.7 and 8.6 suggestive of some renovascular disease possibly 2. Chronic severe lymphedema chronic postop uterine cancer surgery and radiation, worsening recently. Some element of amlodipine additionally causing edema. Off of amlodipine 3. Hyperkalemia secondary to losartan and Celebrex, rule out outlet obstruction. Resolved 4. History of uterine cancer in remission, status post surgery and radiation with lymphedema. 5. Mild non-gap acidosis bicarb is 21 with a gap of 10. 6. Anemia hemoglobin is 7.3 7. Iron deficiency saturation is 11% on 03/18/2022, receiving IV iron. Plan: Continue with diuretics and 80 with his starting Cozaar
--- NOTE | 2022-03-21 13:56 | CDI ---
Documentation Clarification Form Date: 03/21/2022 1:34:18 PM From: Katie Arita CCS, CCDS Admit Date: 03/17/2022 9:18:00 PM Patient Name: Hiwot Yancey Visit Number: [id number] Discharge Date: ATTENTION: The Clinical Documentation Specialists (CDI) and [facility] Coding Staff appreciate your assistance in clarifying documentation. Please respond to the clarification below the line at the bottom and electronically sign. The CDI & [facility] Coding staff will review the response and follow-up if needed. Please note: Queries are made part of the Legal Health Record. If you have any questions, please contact the author of this message via ITS. Dr. Lizette Gordon: Chronic Kidney Disease is documented in the 03/19 Attending Physician Progress Note: Acute renal failure secondary to diuretics for a lymphedema, Celebrex and Amlodipine were discontinued, US of the kidneys showed some Chronic Kidney Disease, Nephrology evaluated the patient. 03/18 Nephrology Consult: Consulted for ZAC, Hyperkalemia, Creatinine was 1.66, K 5.5. Bicarb 10. Baseline Creatinine 0.8 dated 09/22/2019. Additional clarification regarding the stage of CKD is requested. History/Risk Factors per the 03/18 H/P: Atrial Fibrillation, Uterine Cancer status post Radiation & Hysterectomy, GERD, Hyperlipidemia, Hypertension, Osteoarthritis, IGT, Chronic dependent edema of the left leg, Varicose veins, Urinary incontinence, Former smoker. Clinical Indicators: Presented to the ED on 03/17 via EMS with worsening chronic lower extremity swelling & lower extremity pain. Legs are wrapped daily. Home Rx: Low dose Aspirin, Lipitor, Melatonin, Coumadin, Vit D3, Norvasc, Catapres, Lioresal, Celebrex, Losartan/Hctz, Protonix, Apresoline. Admit with ZAC, Anemia, Lymphedema. LAB: BUN 03/17: 106. 03/18: 94. 03/20: 30. 03/21: 23.8 Creatinine 03/17: 1.66. 03/18: 1.55. 03/20: 0.82. 03/21: 0.8. GFR 03/17: 28. 03/18: 30. 03/20: 65. 03/21: 66.3 Historical GFR: 06/27/2018: 73. 04/25/2019: 62. 03/18 Renal US: No hydronephrosis. 1.9 cm complex cyst upper pole left kidney. Unchanged compared to CT scan of 06/27/2018. Treatment 03/17: Nephrology Consult, Heart Healthy Diet, PO Tylenol 1,000 mg x1, PO home meds. 03/18: Bladder Scan, INH Ventolin 2.5 mg q4H/prn, IV Cefazolin 50 mls @ 100 mls/hr q12H 03/19: IV Ferric Na Gluconate 125 mg 110 mls @ 100 mls/hr Daily. Please clarify the stage of the CKD, if known: [ ] CKD Stage 2 (GFR 60-89) [ ] CKD Stage 3 (GFR 30-59) [ ] CKD Stage 3a (GFR 45-59) [ ] CKD Stage 3b (GFR 30-44) [ ] CKD Stage 4 (GFR 15-29) [ ] CKD ruled out [ ] Other, please specify [ ] Unable to determine (Template Last revised: April 2020) No CKD MTDD
[2022-03-21 14:25] VITALS: BP 150/63; PULSE 91; RESP 17; TEMP 97.9
--- NOTE | 2022-03-22 16:11 | P.DS ---
Providers Date of admission: 03/17/22 21:18 Expected date of discharge: 03/21/22 Attending physician: Diomedes Cartwright Consults: 03/17/22 21:51 Consult Physician Routine Consulting Provider: Aurora Licona Consult Reason/Comments: Nicolasa Do you want consulting provider notified?: Yes 03/18/22 14:25 Consult Physician Routine Consulting Provider: Jigar Sow Consult Reason/Comments: cellulitis and lymphedema Do you want consulting provider notified?: Yes Primary care physician: [facility] Course: Final diagnosis -Possible bilateral lower extremity cellulitis multiple ulcerations secondary to lymphedema -Acute renal failure secondary to diuretics for a lymphedema, Celebrex and amlodipine were discontinued, improved -chronic severe lymphedema bilateral lower extremity status post uterine cancer and radiation therapy in the past -Hypertension patient is presently hypotensive hold off all antihypertensive medications amlodipine may be contributing bilateral lower extremity edema -Hyperkalemia secondary to Rocephin, improved -Non-anion gap metabolic acidosis secondary to renal failure -paroxysmal atrial fibrillation -DVT prophylaxis: Patient is on eliquis -No code Discharge disposition Patient is being discharged in a stable condition with guarded prognosis to home. Patient will follow-up with Dr. Augustine in the outpatient setting upon discharge. Patient is to follow-up with infectious disease as scheduled. Patient will continue on oral Keflex 500 mg every 8 hours for the next 10 days. Patient to follow-up with nephrology outpatient as well and recommend repeat labs in the next few days. Patient instructed to continue with Demadex 20 mg daily. Total time taken is greater than 35 minutes. Hospital course This is a 86-year-old female who was recently admitted with bilateral lower extremity lymphedema and open sores. Patient also found to be in acute renal failure and being closely monitored with nephrology and infectious disease following. Patient was maintained on IV cefazolin showed clinical improvement along with Chris wraps and recommend to continue with those from the toes up to the knees and elevating while at rest. Patient kidney functions improved and nephrology recommending continuing with 20 mg of Demadex daily and close outpatient follow-up. Patient did have increased potassium initially and trending down recommend potassium supplement daily if not continuing with the losartan. Patient blood pressure mildly elevated although on admission was on the lower side and losartan was held with nephrology recommending resuming the losartan at this time. Patient to follow-up with primary care provider in the outpatient setting. She has been cleared by consultations and will be discharged home Currently no reports of chest pain, shortness of breath, or palpitations. Patient is afebrile. No reports of nausea or vomiting and patient is tolerating diet. Patient will be discharged home today. Guarded prognosis. Physical exam: Gen: This is a 86-year-old female who is awake, alert and oriented 3, well- developed, well-nourished. HEENT: Head is atraumatic, normocephalic. Pupils equal, round. Sclerae is anicteric. NECK: Supple. No JVD. No lymphadenopathy. No thyromegaly. LUNGS: Clear to auscultation. No wheezes or rhonchi. No intercostal retractions. HEART: Regular rate and rhythm. No murmur. ABDOMEN: Soft. Bowel sounds are present. No masses. No tenderness. EXTREMITIES: Bilateral lower extremities with chronic lymphedema status post radiation therapy No calf tenderness. NEUROLOGICAL: Patient is awake, alert and oriented x3. Cranial nerves 2 through 12 are grossly intact. Please refer to medication reconciliation sheet for a list of medications. The impression and plan of care has been dictated by Krissy Chiu, Nurse Practitioner as directed. MD Rodrigue I have performed a history and examination and MDM of this patient, discussed the same with the dictator, and agree with the dictator's assessment and plan as written ,documented as a scribe. Based on total visit time, I have performed more than 50% of the visit. Patient Condition at Discharge: Stable Plan - Discharge Summary Discharge Rx Participant: Yes New Discharge Prescriptions: New Cephalexin [Keflex] 500 mg PO Q8HR 10 Days #30 cap Torsemide [Demadex] 20 mg PO DAILY 30 Days #30 tab Magnesium Oxide [Mag-Ox] 400 mg PO DAILY 30 Days #30 tab Continue Aspirin 81 mg PO W/SUPPER Atorvastatin Calcium [Lipitor] 10 mg PO DAILY Multivitamins, Thera [Multivitamin (formulary)] 1 tab PO W/LUNCH Latanoprost Ophth [Xalatan 0.005%] 1 drop BOTH EYES HS Acetaminophen Tab [Tylenol] 500 mg PO Q6H PRN PRN Reason: Pain Or Fever > 100.5 Albuterol Sulfate [Proair Respiclick] 2 puff INHALATION RT-Q4H PRN PRN Reason: Shortness Of Breath Apixaban [Eliquis] 2.5 mg PO BID Calcium Carbonate 500 mg PO W/LUNCH Losartan Potassium 100 mg PO DAILY Melatonin 5 - 10 mg PO HS Metoprolol Succinate (ER) [Toprol XL] 50 mg PO DAILY Sennosides/Docusate Sodium [Senna Plus 8.6-50 mg Softgel] 1 - 2 tab PO HS Silver Sulfadiazine [SSD 1% Cream] 1 applic TOPICAL DAILY Cholecalciferol (Vitamin D3) [Vitamin D3 (125 MCG = 5,000 IU)] 125 mcg PO W/L UNCH Dorzolamide-Timol 2.23%/0.68% [Cosopt] 1 drop BOTH EYES BID Pantoprazole [Protonix] 40 mg PO DAILY Changed Baclofen [Lioresal] 5 mg PO BID #0 Discontinued cloNIDine HCL [Catapres] 0.1 tab PO TID Celecoxib [CeleBREX] 200 mg PO DAILY Furosemide [Lasix] 40 mg PO DAILY hydrALAZINE HCL [Apresoline] 50 mg PO BID Spironolactone [Aldactone] 12.5 mg PO DAILY Discharge Medication List Aspirin 81 mg PO W/SUPPER 05/10/15 [History] Atorvastatin Calcium [Lipitor] 10 mg PO DAILY 05/10/15 [History] Latanoprost Ophth [Xalatan 0.005%] 1 drop BOTH EYES HS 04/24/19 [History] Multivitamins, Thera [Multivitamin (formulary)] 1 tab PO W/LUNCH 04/24/19 [History] Acetaminophen Tab [Tylenol] 500 mg PO Q6H PRN 03/18/22 [History] Albuterol Sulfate [Proair Respiclick] 2 puff INHALATION RT-Q4H PRN 03/18/22 [History] Apixaban [Eliquis] 2.5 mg PO BID 03/18/22 [History] Calcium Carbonate 500 mg PO W/LUNCH 03/18/22 [History] Cholecalciferol (Vitamin D3) [Vitamin D3 (125 MCG = 5,000 IU)] 125 mcg PO W/LUNCH 03/18/22 [History] Dorzolamide-Timol 2.23%/0.68% [Cosopt] 1 drop BOTH EYES BID 03/18/22 [History] Losartan Potassium 100 mg PO DAILY 03/18/22 [History] Melatonin 5 - 10 mg PO HS 03/18/22 [History] Metoprolol Succinate (ER) [Toprol XL] 50 mg PO DAILY 03/18/22 [History] Pantoprazole [Protonix] 40 mg PO DAILY 03/18/22 [History] Sennosides/Docusate Sodium [Senna Plus 8.6-50 mg Softgel] 1 - 2 tab PO HS 03/18/22 [History] Silver Sulfadiazine [SSD 1% Cream] 1 applic TOPICAL DAILY 03/18/22 [History] Baclofen [Lioresal] 5 mg PO BID #0 03/21/22 [Rx] Cephalexin [Keflex] 500 mg PO Q8HR 10 Days #30 cap 03/21/22 [Rx] Magnesium Oxide [Mag-Ox] 400 mg PO DAILY 30 Days #30 tab 03/21/22 [Rx] Torsemide [Demadex] 20 mg PO DAILY 30 Days #30 tab 03/21/22 [Rx] Follow up Appointment(s)/Referral(s): Tutu Augustine MD [Primary Care Provider] - 03/27/22 1:30 pm (With Aury) [facility], [NON-STAFF] - 1-2 Days ([facility] will call you to schedule your in home nursing and physical therapy visits. ) Jigar Sow MD [STAFF PHYSICIAN] - 03/28/22 1:45 pm Ambulatory/Diagnostic Orders: Basic Metabolic Panel [LAB.AMB] Location: None Selected Patient Instructions/Handouts: Cephalexin (By mouth), Torsemide (By mouth), Magnesium Oxide (By mouth), Acute Kidney Injury (DC), Cellulitis (GEN), Lymphedema (DC) Activity/Diet/Wound Care/Special Instructions: Activity Limited until follow-up Follow-up with primary care provider on discharge Follow-up with infectious disease Dr. Sow in the clinic in one week Continue taking antibiotics until finished Follow-up with nephrology in one week continue with Chris wraps to bilateral lower extremities from the toes up to the knees and elevate while at rest Discharge/Stand Alone Forms: Assisted Living Facilities Discharge Disposition: HOME WITH HOME HEALTH SERVICES
--- NOTE | 2022-03-24 22:27 | P.PN ---
Subjective Progress Note Date: 03/21/22 Principal diagnosis: Left lower extremity cellulitis Patient is 86-year-old female with a past medical history significant for atrial fibrillation hypertension hyperlipidemia GERD history of uterine cancer and did have a surgical treatment with subsequent development of lymphedema especially to the left lower extremity, presented to hospital with increasing swelling redness to left leg along with weakness concerning for cellulitis. On today's evaluation that is 03/21/2022, the patient continues to be afebrile, the patient pain to the left leg and swelling has decreased in intensity, the patient denies chest pain shortness of breath or cough no abdominal pain or diarrhea Objective - Vital Signs Vital signs: Vital Signs Temp 97.8 F 03/21/22 10:30 Pulse 63 03/21/22 11:49 Resp 16 03/21/22 10:30 BP 157/64 03/21/22 10:30 Pulse Ox 95 03/21/22 10:30 FiO2 Intake & Output 03/20/22 03/21/22 03/21/22 18:59 06:59 18:59 Intake Total 1080 Balance 1080 Weight 67.132 kg Intake: Oral 1080 Other: Voiding Method Toilet Toilet # Voids 1 1 1 # Bowel Movements 1 - Exam GENERAL DESCRIPTION: An elderly female lying in bed in no distress RESPIRATORY SYSTEM: Unlabored breathing , decreased breath sounds at bases HEART: S1 S2 regular rate and rhythm , ABDOMEN: Soft , no tenderness EXTREMITIES: Left leg is currently covered with Chris wrap no drainage on the dressing - Labs CBC & Chem 7: 03/20/22 10:18 03/21/22 04:13 Labs: Abnormal Lab Results - Last 24 Hours (Table) 03/21/22 Range/Units 04:13 Potassium 3.2 L (3.5-5.5) mmol/L BUN/Creatinine Ratio 29.75 H (12.00-20.00) Ratio Calcium 8.3 L (8.7-10.3) mg/dL Assessment and Plan (1) Left leg cellulitis Status: Acute Code(s): L03.116 - CELLULITIS OF LEFT LOWER LIMB SNOMED Code(s): 273020117 Plan: 1patient with chronic lymphedema to the left lower extremity in this patient with a history of uterine cancer status post surgical treatment now presented to hospital with increasing swelling redness to the left leg concerning for cellulitis likely from gram-positive skin isha. 2patient with renal insufficiency and high risk of nephrotoxicity 3patient to continue with Chris wrap to the leg to keep the swelling down 4patient seemed to have shown clinical improvement with cefazolin and will finish therapy with oral Keflex discuss with the PIPE SETTER for admitting team Time with Patient: Less than 30
== END 2022-03-21 15:05 | disposition home health service (06) | DRG 683 ==
LOC: EC 19:41 → 4SSUR 21:18
PROVIDERS: ADMIT Internal Medicine; ATTEND Internal Medicine
DX: N17.9 Acute kidney failure, unspecified (principal); E87.20 Acidosis, unspecified; L03.116 Cellulitis of left lower limb; L97.929 Non-pressure chronic ulcer of unspecified part of left lower leg with unspecified severity; L97.919 Non-pressure chronic ulcer of unspecified part of right lower leg with unspecified severity; L03.115 Cellulitis of right lower limb; I89.0 Lymphedema, not elsewhere classified; D64.9 Anemia, unspecified; I95.9 Hypotension, unspecified; E87.5 Hyperkalemia; T46.1X5A Adverse effect of calcium-channel blockers, initial encounter; T36.1X5A Adverse effect of cephalosporins and other beta-lactam antibiotics, initial encounter; I48.0 Paroxysmal atrial fibrillation; T50.2X5A Adverse effect of carbonic-anhydrase inhibitors, benzothiadiazides and other diuretics, initial encounter; K21.9 Gastro-esophageal reflux disease without esophagitis; M19.90 Unspecified osteoarthritis, unspecified site; D50.9 Iron deficiency anemia, unspecified; I11.9 Hypertensive heart disease without heart failure; I83.90 Asymptomatic varicose veins of unspecified lower extremity; R32 Unspecified urinary incontinence; E78.5 Hyperlipidemia, unspecified; Z95.0 Presence of cardiac pacemaker; Z92.3 Personal history of irradiation; Z90.710 Acquired absence of both cervix and uterus; Z85.42 Personal history of malignant neoplasm of other parts of uterus; Z79.899 Other long term (current) drug therapy; Z79.1 Long term (current) use of non-steroidal anti-inflammatories (NSAID); Z79.01 Long term (current) use of anticoagulants; Z91.81 History of falling; Z87.891 Personal history of nicotine dependence; Z71.3 Dietary counseling and surveillance
CPT/HCPCS: 36415; 71046; 76770; 80048; 83540; 83550; 83735; 83880; 84100; 85025; 99285

== ENCOUNTER 2022-03-30 11:13 | Inpatient (IN) | payer MEDICARE ==
[2022-03-30] MEDS ORDERED: SODIUM CHLORIDE 0.9% 1,000 ML IV STA (11:55)
--- NOTE | 2022-03-30 12:01 | ED ---
Weakness HPI - General Chief complaint: Weakness Stated complaint: Weakness Time Seen by Provider: 03/30/22 11:46 Source: patient, EMS, RN notes reviewed Mode of arrival: EMS Limitations: no limitations - History of Present Illness Initial comments: This is an 86-year-old female who presents to the emergency department for weakness. She has a friend with her, who states that this morning she did not seem like herself. She had the visiting care nurse over who felt the same way. She kept falling asleep and seemed confused. States that she did not know what day it was and seemed somewhat disoriented. She then proceeded to have a bowel movement all over herself, which is not something that has happened before. She was hospitalized last week for lymphedema and bilateral lower extremity cellulitis. Her caregiver states that this has been healing very well. Denies any fevers, chills, sore throat, cough, dyspnea, chest pain, palpita tions, abdominal pain, nausea, vomiting, diarrhea, back pain, or headaches. MD Complaint: generalized weakness - Related Data Home Medications Medication Instructions Recorded Confirmed Aspirin 81 mg PO W/SUPPER 05/10/15 03/30/22 Atorvastatin Calcium [Lipitor] 10 mg PO DAILY 05/10/15 03/30/22 Latanoprost Ophth [Xalatan 0.005%] 1 drop BOTH EYES HS 04/24/19 03/30/22 Multivitamins, Thera [Multivitamin 1 tab PO W/LUNCH 04/24/19 03/30/22 (formulary)] Acetaminophen Tab [Tylenol] 500 mg PO Q6H PRN 03/18/22 03/30/22 Albuterol Sulfate [Proair 2 puff INHALATION RT-Q4H PRN 03/18/22 03/30/22 Respiclick] Apixaban [Eliquis] 2.5 mg PO BID 03/18/22 03/30/22 Calcium Carbonate 500 mg PO W/LUNCH 03/18/22 03/30/22 Cholecalciferol (Vitamin D3) 125 mcg PO W/LUNCH 03/18/22 03/30/22 [Vitamin D3 (125 MCG = 5,000 IU)] Dorzolamide-Timol 2.23%/0.68% 1 drop BOTH EYES BID 03/18/22 03/30/22 [Cosopt] Losartan Potassium 100 mg PO DAILY 03/18/22 03/30/22 Melatonin 5 - 10 mg PO HS 03/18/22 03/30/22 Metoprolol Succinate (ER) [Toprol 50 mg PO DAILY 03/18/22 03/30/22 XL] Pantoprazole [Protonix] 40 mg PO DAILY 03/18/22 03/30/22 Sennosides/Docusate Sodium [Senna 1 - 2 tab PO HS 03/18/22 03/30/22 Plus 8.6-50 mg Softgel] Silver Sulfadiazine [SSD 1% Cream] 1 applic TOPICAL DAILY 03/18/22 03/30/22 Previous Rx's Medication Instructions Recorded Baclofen [Lioresal] 5 mg PO BID #0 03/21/22 Cephalexin [Keflex] 500 mg PO Q8HR 10 Days #30 cap 03/21/22 Magnesium Oxide [Mag-Ox] 400 mg PO DAILY 30 Days #30 tab 03/21/22 Torsemide [Demadex] 20 mg PO DAILY 30 Days #30 tab 03/21/22 Allergies Allergy/AdvReac Type Severity Reaction Status Date / Time No Known Allergies Allergy Verified 03/30/22 13:00 Review of Systems ROS Statement: Those systems with pertinent positive or pertinent negative responses have been documented in the HPI. ROS Other: All systems not noted in ROS Statement are negative. Past Medical History Past Medical History: Atrial Fibrillation, Cancer, GERD/Reflux, Hyperlipidemia, Hypertension, Osteoarthritis (OA), Syncope Additional Past Medical History / Comment(s): uterine cancer 14 yrs. ago, surg. & radiation, IGT,chronic dependent edema left leg-leg wrapped, VARICOSE VEINS, urinary incontinence, recent admission to [facility] for fall & syncope History of Any Multi-Drug Resistant Organisms: None Reported Past Surgical History: Bowel Resection, Hysterectomy, Tonsillectomy Additional Past Surgical History / Comment(s): lung surgery left thoracotomy negative for lung mass 2007?, SMALL VAGINAL MASS REMOVED, COLONOSCOPY,ELISEO CATARACT. Past Anesthesia/Blood Transfusion Reactions: No Reported Reaction Past Psychological History: No Psychological Hx Reported Smoking Status: Former smoker Past Alcohol Use History: Occasional Past Drug Use History: None Reported - Past Family History Father Family Medical History: Coronary Artery Disease (CAD) Mother Family Medical History: Coronary Artery Disease (CAD) Brother(s) Family Medical History: Cancer Son(s) Family Medical History: Respiratory Disorder General Exam General appearance: alert, other (drowsy) Head exam: Present: atraumatic, normocephalic, normal inspection Respiratory exam: Present: normal lung sounds bilaterally. Absent: respiratory distress, wheezes, rales, rhonchi, stridor Cardiovascular Exam: Present: regular rate, normal rhythm, normal heart sounds. Absent: systolic murmur, diastolic murmur, rubs, gallop, clicks Extremities exam: Present: other (The bilateral lower extremities are wrapped with Chris bandages) Neurological exam: Present: alert, oriented X3, CN II-XII intact Psychiatric exam: Present: normal affect, normal mood Skin exam: Present: warm, dry, intact, normal color. Absent: rash Course Vital Signs 03/30/22 03/30/22 11:17 15:45 Temperature 97.9 F Pulse Rate 77 66 Respiratory 16 14 Rate Blood Pressure 151/71 139/62 O2 Sat by Pulse 100 100 Oximetry Medical Decision Making - Medical Decision Making This is an 86-year-old female who presents to the emergency department for weakness. Was pt. sent in by a medical professional or institution? @ -No Did you speak to anyone other than the patient for history? @ -Caregiver Did you review nursing and triage notes? @ -Yes, and I agree, it is accurate with regards to the patient's symptoms. Were old charts reviewed? @ -No Differential Diagnosis? @ -Differential Weakness: Hypoglycemia, shock, sepsis, hyponatremia, anemia, infection, NE, ETOH, adverse medicine reaction, overdose, stroke, this is not meant to be an all-inclusive list. EKG interpreted by me (3pts min.)? @ -Electronic ventricular pacemaker. Ventricular rate 60 beats per minute, QRS duration 162 ms, QTC 513 ms. What testing was considered but not performed? (CT, X-rays, U/S, labs)? Why? @ -None What meds were considered but not given? Why? @ -None Did you discuss the management of the patient with other professionals? @ -Yes, Dr. Bonilla who accepts the patient for admission. Did you reconcile home meds? @ -No Was smoking cessation discussed for >3mins.? @ -No Was critical care preformed (if so, how long)? @ -No Were there social determinants of health that impacted care today? How? (Homelessness, low income, unemployed, alcoholism, drug addiction, transportation, low edu. Level, literacy, decrease access to med. care, m[facility], rehab)? @ -No Was there de-escalation of care discussed even if they declined? (Discuss DNR or withdrawal of care, Hospice)? @ -No What co-morbidities impacted this encounter? (DM, HTN, Smoking, COPD, CAD, Cancer, CVA, Hep., AIDS, mental health diagnosis, sleep apnea, morbid obesity)? @ -Atrial fibrillation, HTN, HLD Was patient admitted / discharged? @ -Admitted. Lab work consistent with an acute kidney injury. Hemoglobin is decreased, however it is stable compared to prior values. Urinalysis consistent with infection. She was given a dose of ceftriaxone in the emergency department and IV fluids. Given that she continues to feel very weak, is unable to stay awake, has been confused, and lives alone, will admit to medicine for IV antibiotics, fluids, and PT/OT eval. Undiagnosed new problem with uncertain prognosis? @ -None Drug Therapy requiring intensive monitoring for toxicity (Heparin, Nitro, Insulin, Cardizem)? @ -None Were any procedures done? @ -None Diagnosis/symptom? @ -UTI Acute, or Chronic, or Acute on Chronic? @ -Acute Uncomplicated (without systemic symptoms) or Complicated (systemic symptoms)? @ -Complicated Side effects of treatment? @ -None Exacerbation, Progression, or Severe Exacerbation] @ -Not applicable Poses a threat to life or bodily function? @ -Yes Diagnosis/symptom? @ -Weakness Acute, or Chronic, or Acute on Chronic? @ -Acute Uncomplicated (without systemic symptoms) or Complicated (systemic symptoms)? @ -Complicated Side effects of treatment? @ -None Exacerbation, Progression, or Severe Exacerbation] @ -Not applicable Poses a threat to life or bodily function? @ -Yes This case was discussed in detail with the attending ED physician, Dr. Russo. Presentation, findings, and treatment plan discussed in detail as well. - Lab Data Result diagrams: 03/30/22 12:23 03/30/22 12: Lab Results 03/30/22 03/30/22 03/30/22 Range/Units 12: 12: 12: WBC 6.0 (3.8-10.6) k/uL RBC 2.76 L (3.80-5.40) m/uL Hgb 8.7 L (11.4-16.0) gm/dL Hct 29.3 L (34.0-46.0) % MCV 105.9 H (80.0-100.0) fL MCH 31.5 (25.0-35.0) pg MCHC 29.8 L (31.0-37.0) g/dL RDW 19.6 H (11.5-15.5) % Plt Count 360 (150-450) k/uL MPV 8.7 Neutrophils % (Manual) 67 % Lymphocytes % (Manual) 20 % Monocytes % (Manual) 8 % Eosinophils % (Manual) 5 % Basophils % (Manual) 1 % Myelocytes % 1 % Neutrophils # (Manual) 4.02 (1.3-7.7) k/uL Lymphocytes # (Manual) 1.20 (1.0-4.8) k/uL Monocytes # (Manual) 0.48 (0-1.0) k/uL Eosinophils # (Manual) 0.30 (0-0.7) k/uL Basophils # (Manual) 0.06 (0-0.2) k/uL Myelocytes # (Manual) 0.06 H (0) k/uL Nucleated RBCs 0 (0-0) /100 WBC Manual Slide Review Performed Hypochromasia Moderate Anisocytosis Slight Macrocytosis Marked A PT 10.8 (9.0-12.0) sec INR 1.0 (<1.2) APTT 23.7 (22.0-30.0) sec Sodium (137-145) mmol/L Potassium (3.5-5.1) mmol/L Chloride (98-107) mmol/L Carbon Dioxide (22-30) mmol/L Anion Gap mmol/L BUN (7-17) mg/dL Creatinine (0.52-1.04) mg/dL Est GFR (CKD-EPI)AfAm (>60 ml/min/1.73 sqM) Est GFR (CKD-EPI)NonAf (>60 ml/min/1.73 sqM) Glucose (74-99) mg/dL Plasma Lactic Acid Edu (0.7-2.0) mmol/L Calcium (8.4-10.2) mg/dL Phosphorus (2.5-4.5) mg/dL Magnesium (1.6-2.3) mg/dL Total Bilirubin (0.2-1.3) mg/dL AST (14-36) U/L ALT (4-34) U/L Alkaline Phosphatase (38-126) U/L Troponin I (0.000-0.034) ng/mL Total Protein (6.3-8.2) g/dL Albumin (3.5-5.0) g/dL Urine Color Light Yellow Urine Appearance Cloudy H (Clear) Urine pH 5.5 (5.0-8.0) Ur Specific [place] 1.017 (1.001-1.035) Urine Protein Trace H (Negative) Urine Glucose (UA) Negative (Negative) Urine Ketones Negative (Negative) Urine Blood Small H (Negative) Urine Nitrite Negative (Negative) Urine Bilirubin Negative (Negative) Urine Urobilinogen <2.0 (<2.0) mg/dL Ur Leukocyte Esterase Large H (Negative) Urine RBC 3 (0-5) /hpf Urine WBC 35 H (0-5) /hpf Ur Squamous Epith Cells 5 H (0-4) /hpf Urine Bacteria Occasional H (None) /hpf Hyaline Casts 3 H (0-2) /lpf Urine Mucus Rare H (None) /hpf Influenza Type A (PCR) (Not Detectd) Influenza Type B (PCR) (Not Detectd) RSV (PCR) (Not Detectd) SARS-CoV-2 (PCR) (Not Detectd) 03/30/22 03/30/22 03/30/22 Range/Units 12:23 12:23 12:23 WBC (3.8-10.6) k/uL RBC (3.80-5.40) m/uL Hgb (11.4-16.0) gm/dL Hct (34.0-46.0) % MCV (80.0-100.0) fL MCH (25.0-35.0) pg MCHC (31.0-37.0) g/dL RDW (11.5-15.5) % Plt Count (150-450) k/uL MPV Neutrophils % (Manual) % Lymphocytes % (Manual) % Monocytes % (Manual) % Eosinophils % (Manual) % Basophils % (Manual) % Myelocytes % % Neutrophils # (Manual) (1.3-7.7) k/uL Lymphocytes # (Manual) (1.0-4.8) k/uL Monocytes # (Manual) (0-1.0) k/uL Eosinophils # (Manual) (0-0.7) k/uL Basophils # (Manual) (0-0.2) k/uL Myelocytes # (Manual) (0) k/uL Nucleated RBCs (0-0) /100 WBC Manual Slide Review Hypochromasia Anisocytosis Macrocytosis PT (9.0-12.0) sec INR (<1.2) APTT (22.0-30.0) sec Sodium 139 (137-145) mmol/L Potassium 4.4 (3.5-5.1) mmol/L Chloride 102 (98-107) mmol/L Carbon Dioxide 29 (22-30) mmol/L Anion Gap 8 mmol/L BUN 78 H (7-17) mg/dL Creatinine 1.64 H (0.52-1.04) mg/dL Est GFR (CKD-EPI)AfAm 32 (>60 ml/min/1.73 sqM) Est GFR (CKD-EPI)NonAf 28 (>60 ml/min/1.73 sqM) Glucose 121 H (74-99) mg/dL Plasma Lactic Acid Edu 1.4 (0.7-2.0) mmol/L Calcium 8.8 (8.4-10.2) mg/dL Phosphorus 4.5 (2.5-4.5) mg/dL Magnesium 2.0 (1.6-2.3) mg/dL Total Bilirubin 0.3 (0.2-1.3) mg/dL AST 28 (14-36) U/L ALT 16 (4-34) U/L Alkaline Phosphatase 81 (38-126) U/L Troponin I 0.014 (0.000-0.034) ng/mL Total Protein 6.7 (6.3-8.2) g/dL Albumin 3.8 (3.5-5.0) g/dL Urine Color Urine Appearance (Clear) Urine pH (5.0-8.0) Ur Specific [place] (1.001-1.035) Urine Protein (Negative) Urine Glucose (UA) (Negative) Urine Ketones (Negative) Urine Blood (Negative) Urine Nitrite (Negative) Urine Bilirubin (Negative) Urine Urobilinogen (<2.0) mg/dL Ur Leukocyte Esterase (Negative) Urine RBC (0-5) /hpf Urine WBC (0-5) /hpf Ur Squamous Epith Cells (0-4) /hpf Urine Bacteria (None) /hpf Hyaline Casts (0-2) /lpf Urine Mucus (None) /hpf Influenza Type A (PCR) (Not Detectd) Influenza Type B (PCR) (Not Detectd) RSV (PCR) (Not Detectd) SARS-CoV-2 (PCR) (Not Detectd) 03/30/22 Range/Units 12:23 WBC (3.8-10.6) k/uL RBC (3.80-5.40) m/uL Hgb (11.4-16.0) gm/dL Hct (34.0-46.0) % MCV (80.0-100.0) fL MCH (25.0-35.0) pg MCHC (31.0-37.0) g/dL RDW (11.5-15.5) % Plt Count (150-450) k/uL MPV Neutrophils % (Manual) % Lymphocytes % (Manual) % Monocytes % (Manual) % Eosinophils % (Manual) % Basophils % (Manual) % Myelocytes % % Neutrophils # (Manual) (1.3-7.7) k/uL Lymphocytes # (Manual) (1.0-4.8) k/uL Monocytes # (Manual) (0-1.0) k/uL Eosinophils # (Manual) (0-0.7) k/uL Basophils # (Manual) (0-0.2) k/uL Myelocytes # (Manual) (0) k/uL Nucleated RBCs (0-0) /100 WBC Manual Slide Review Hypochromasia Anisocytosis Macrocytosis PT (9.0-12.0) sec INR (<1.2) APTT (22.0-30.0) sec Sodium (137-145) mmol/L Potassium (3.5-5.1) mmol/L Chloride (98-107) mmol/L Carbon Dioxide (22-30) mmol/L Anion Gap mmol/L BUN (7-17) mg/dL Creatinine (0.52-1.04) mg/dL Est GFR (CKD-EPI)AfAm (>60 ml/min/1.73 sqM) Est GFR (CKD-EPI)NonAf (>60 ml/min/1.73 sqM) Glucose (74-99) mg/dL Plasma Lactic Acid Edu (0.7-2.0) mmol/L Calcium (8.4-10.2) mg/dL Phosphorus (2.5-4.5) mg/dL Magnesium (1.6-2.3) mg/dL Total Bilirubin (0.2-1.3) mg/dL AST (14-36) U/L ALT (4-34) U/L Alkaline Phosphatase (38-126) U/L Troponin I (0.000-0.034) ng/mL Total Protein (6.3-8.2) g/dL Albumin (3.5-5.0) g/dL Urine Color Urine Appearance (Clear) Urine pH (5.0-8.0) Ur Specific [place] (1.001-1.035) Urine Protein (Negative) Urine Glucose (UA) (Negative) Urine Ketones (Negative) Urine Blood (Negative) Urine Nitrite (Negative) Urine Bilirubin (Negative) Urine Urobilinogen (<2.0) mg/dL Ur Leukocyte Esterase (Negative) Urine RBC (0-5) /hpf Urine WBC (0-5) /hpf Ur Squamous Epith Cells (0-4) /hpf Urine Bacteria (None) /hpf Hyaline Casts (0-2) /lpf Urine Mucus (None) /hpf Influenza Type A (PCR) Not Detected (Not Detectd) Influenza Type B (PCR) Not Detected (Not Detectd) RSV (PCR) Not Detected (Not Detectd) SARS-CoV-2 (PCR) Not Detected (Not Detectd) - Radiology Data Radiology results: report reviewed, image reviewed Disposition Clinical Impression: UTI (urinary tract infection), Weakness, Confusion Disposition: ADMITTED IP TO THIS HOSP
[2022-03-30 12:45] LABS: Anisocytosis Slight; HCT 29.3 % (34.0-46.0); HGB 8.7 gm/dL (11.4-16.0); Hypochromasia Moderate; MCH 31.5 pg (25.0-35.0); MCHC 29.8 g/dL (31.0-37.0); MCV 105.9 fL (80.0-100.0); Macrocytosis Marked; Mean Platelet Volume 8.7; Platelet Count 360 k/uL (150-450); RBC 2.76 m/uL (3.80-5.40); RDW 19.6 % (11.5-15.5)
[2022-03-30 13:02] LABS: Albumin 3.8 g/dL (3.5-5.0); Calcium 8.8 mg/dL (8.4-10.2); Phosphorus 4.5 mg/dL (2.5-4.5); Potassium 4.4 mmol/L (3.5-5.1); Total Bilirubin 0.3 mg/dL (0.2-1.3); Total Protein 6.7 g/dL (6.3-8.2)
[2022-03-30 13:03] LABS: Partial Thromboplastin Time 23.7 sec (22.0-30.0); Prothrombin Time 10.8 sec (9.0-12.0)
[2022-03-30 13:31] LABS: Appearance,Urine Cloudy (Clear); Bacteria,Urine Occasional /hpf; Bilirubin,Urine Negative (Negative); Blood,Urine Small (Negative); Color,Urine Light Yellow; Glucose,Urine (UA) Negative (Negative); Hyaline Casts,Urine 3 /lpf (0-2); Ketones,Urine Negative (Negative); Leukocyte Esterase,Urine Large (Negative); Mucus,Urine Rare /hpf; Nitrite,Urine Negative (Negative); PH, Urine 5.5 (5.0-8.0); Protein,Urine Trace (Negative); RBC,Urine 3 /hpf (0-5); Specific Gravity,Urine 1.017 (1.001-1.035); Squamous Epithelial Cell,Urine 5 /hpf (0-4); Urobilinogen,Urine <2.0 mg/dL (<2.0); WBC,Urine 35 /hpf (0-5)
[2022-03-30 13:51] LABS: Basophils # (M) 0.06 k/uL (0-0.2); Monocytes # (M) 0.48 k/uL (0-1.0); Myelocytes # (M) 0.06 k/uL (0); Myelocytes % 1 %; Neutrophils # (M) 4.02 k/uL (1.3-7.7); Neutrophils % (M) 67 %; Nucleated Red Blood Cells 0 /100 WBC (0-0); Total Cells Counted 200
[2022-03-30] MEDS ORDERED: cefTRIAXone IN SWFI 1,000 MG/10 ML SYRINGE IVP STA (14:28)
[2022-03-30] MEDS ORDERED: ONDANSETRON 4 MG/2 ML VIAL IVP PRN (14:31)
[2022-03-30] MEDS ORDERED: NALOXONE 0.4 MG/ML 1 ML VIAL IV PRN (14:31)
[2022-03-30] MEDS ORDERED: ACETAMINOPHEN TAB 325 MG TAB PO PRN (14:31)
[2022-03-30] MEDS ORDERED: ALBUTEROL NEBULIZED 2.5 MG/3 ML INHALATION PRN (15:04)
[2022-03-30] MEDS ORDERED: Potassium Replacement Protocol 1 EACH MISC MISCELLANE PRN (15:06)
[2022-03-30] MEDS ORDERED: Magnesium Replacement Protocol 1 EACH MISC MISCELLANE PRN (15:06)
[2022-03-30] MEDS: METOPROLOL SUCCINATE (ER) 50 MG TAB.ER.24H PO SCH (16:01)
[2022-03-30] MEDS: ASPIRIN 81 MG PO SCH (17:52)
[2022-03-30] MEDS: LATANOPROST 0.005% OPHTH DROPS 2.5 ML BTL BOTH EYES SCH (21:50)
[2022-03-30] MEDS: DORZOLAMIDE-TIMOLOL 2.23%/0.68 10ML BTL BOTH EYES SCH (21:50)
[2022-03-30] MEDS: APIXABAN 2.5 MG TABLET PO SCH (21:50)
[2022-03-30] MEDS: MELATONIN 5 MG TABLET PO SCH (21:50)
[2022-03-30] MEDS: BACLOFEN 10 MG TAB PO SCH (21:50)
--- NOTE | 2022-03-31 03:21 | HP ---
HISTORY AND PHYSICAL CHIEF COMPLAINT: Confusion and weakness. HISTORY OF PRESENT ILLNESS: This is an 86-year-old woman with a past medical history of multiple medical problems including atrial fibrillation, was recently admitted with possible bilateral leg cellulitis and multiple other medical problems. The patient went home and today the caregiver found that the patient is confused. The patient had episode of diarrhea. The patient was taken to [facility]. The patient had possible UTI. The patient was admitted for further evaluation and treatment. There is no history of any fever, rigors, or chills at this time. The patient also had recent COVID infection. PAST MEDICAL HISTORY: Reviewed and include recent cellulitis. Rest of the history and rest of the chart are also reviewed. HOME MEDICATIONS: Reviewed include Demadex, dose and rest of medications noted. ALLERGIES: None. FAMILY HISTORY: History of coronary artery disease in the family. SOCIAL HISTORY: Previous history of smoking. Occasional alcohol intake. REVIEW OF SYSTEMS: Fourteen-point review is negative except as mentioned earlier. PHYSICAL EXAMINATION: VITAL SIGNS: Pulse is 77, blood pressure 151/71, respirations 16. HEENT: Conjunctivae normal. . RESPIRATORY: Breath sounds diminished at the bases. Few scattered rhonchi and crackles. ABDOMEN: Soft and nontender. bilateral leg cellulitis. NERVOUS SYSTEM: No focal deficits. SKIN: No ulcers or rashes. JOINTS: No active deforming arthropathy. LABS: WBC 6, hemoglobin is 8.7. ASSESSMENT: 1. Possible acute urinary tract infection present on admission. 2. History of recent acute cellulitis. 3. Chronic kidney disease. 4. Anemia. 5. Hypertension. 6. Hyperlipidemia. 7. Multiple medical issues. RECOMMENDATIONS: This is an 86-year-old woman with past medical history of multiple medical problems, admitted with some confusion and features of urinary tract infection. I would initiate broad-spectrum IV antibiotics. Obtain the cultures. Infectious disease evaluation. The patient also had persistent cellulitis of the legs the patient also complains of weakness. The patient had recent COVID infection and will also get PT/OT evaluation and social work lecturer to evaluate for ECF. Overall prognosis guarded because of multiple complex medical issues. Further recommendations to follow. See orders for details. MMODL / IJN: [id number] /
--- NOTE | 2022-03-31 07:59 | P.CONS ---
History of Present Illness - Reason for Consult Consult date: 03/30/22 UTI, cellulitis Requesting physician: Lexis Bonilla - Chief Complaint Mental status changes confusion x one day - History of Present Illness Patient is a 86-year-old female with a past medical history significant for hypertension hyperlipidemia osteoarthritis atrial fibrillation history of uterine cancer did have a history of surgery and radiation with subsequent significant left edema to bilateral lower extremity and was recently admitted to the hospital and treated for an episode of cellulitis or the patient has completed her antibiotic therapy patient has been brought to the ER this morning for evaluation of weakness patient was not acting herself and visiting care nurse felt the same way patient kept falling asleep and seemed confused did not know the day and was disoriented with the symptom the patient was brought into the ER on presentation to the hospital the patient was afebrile and no fever has been recorded subsequently patient did have a normal white count BUN/creatinine was mildly elevated liver enzymes are normal patient did have a positive UA influenza RSV and COVID PCR were negative patient was given a dose of Rocephin concerning for UTI admitted to hospital infectious disease was consulted for further management. Patient at time my evaluation this afternoon is awake and alert that she knows in the hospital mention she was possibly confused this morning and did not recall what happened the patient denies having any headache denies having any chest pain or shortness of breath or cough no abdominal pain patient did have significant swelling to lower extremity denies any worsening pain or any drainage Lyza currently being treated with a Silvadene cream Curlex and Chris wrap's denies having any diarrhea some vague urinary symptoms of burning but no suprapubic or flank pain Review of Systems Positive point has been mentioned in the HPI rest of the systems are negative Past Medical History Past Medical History: Atrial Fibrillation, Cancer, GERD/Reflux, Hyperlipidemia, Hypertension, Osteoarthritis (OA), Syncope Additional Past Medical History / Comment(s): uterine cancer 14 yrs. ago, surg. & radiation, IGT,chronic dependent edema left leg-leg wrapped, VARICOSE VEINS, urinary incontinence, recent admission to [facility] for fall & syncope History of Any Multi-Drug Resistant Organisms: None Reported Past Surgical History: Bowel Resection, Hysterectomy, Tonsillectomy Additional Past Surgical History / Comment(s): lung surgery left thoracotomy negative for lung mass 2007?, SMALL VAGINAL MASS REMOVED, COLONOSCOPY,ELISEO CATARACT. Past Anesthesia/Blood Transfusion Reactions: No Reported Reaction Past Psychological History: No Psychological Hx Reported Smoking Status: Former smoker Past Alcohol Use History: Occasional Past Drug Use History: None Reported - Past Family History Father Family Medical History: Coronary Artery Disease (CAD) Mother Family Medical History: Coronary Artery Disease (CAD) Brother(s) Family Medical History: Cancer Son(s) Family Medical History: Respiratory Disorder Medications and Allergies Home Medications Medication Instructions Recorded Confirmed Type Aspirin 81 mg PO W/SUPPER 05/10/15 03/30/22 History Atorvastatin Calcium [Lipitor] 10 mg PO DAILY 05/10/15 03/30/22 History Latanoprost Ophth [Xalatan 0.005%] 1 drop BOTH EYES HS 04/24/19 03/30/22 History Multivitamins, Thera [Multivitamin 1 tab PO W/LUNCH 04/24/19 03/30/22 History (formulary)] Acetaminophen Tab [Tylenol] 500 mg PO Q6H PRN 03/18/22 03/30/22 History Albuterol Sulfate [Proair 2 puff INHALATION RT-Q4H PRN 03/18/22 03/30/22 History Respiclick] Apixaban [Eliquis] 2.5 mg PO BID 03/18/22 03/30/22 History Calcium Carbonate 500 mg PO W/LUNCH 03/18/22 03/30/22 History Cholecalciferol (Vitamin D3) 125 mcg PO W/LUNCH 03/18/22 03/30/22 History [Vitamin D3 (125 MCG = 5,000 IU)] Dorzolamide-Timol 2.23%/0.68% 1 drop BOTH EYES BID 03/18/22 03/30/22 History [Cosopt] Losartan Potassium 100 mg PO DAILY 03/18/22 03/30/22 History Melatonin 5 - 10 mg PO HS 03/18/22 03/30/22 History Metoprolol Succinate (ER) [Toprol 50 mg PO DAILY 03/18/22 03/30/22 History XL] Pantoprazole [Protonix] 40 mg PO DAILY 03/18/22 03/30/22 History Sennosides/Docusate Sodium [Senna 1 - 2 tab PO HS 03/18/22 03/30/22 History Plus 8.6-50 mg Softgel] Silver Sulfadiazine [SSD 1% Cream] 1 applic TOPICAL DAILY 03/18/22 03/30/22 History Baclofen [Lioresal] 5 mg PO BID #0 03/21/22 03/30/22 Rx Cephalexin [Keflex] 500 mg PO Q8HR 10 Days #30 cap 03/21/22 03/30/22 Rx Magnesium Oxide [Mag-Ox] 400 mg PO DAILY 30 Days #30 tab 03/21/22 03/30/22 Rx Torsemide [Demadex] 20 mg PO DAILY 30 Days #30 tab 03/21/22 03/30/22 Rx Allergies Allergy/AdvReac Type Severity Reaction Status Date / Time No Known Allergies Allergy Verified 03/30/22 13:00 Physical Exam Vitals: Vital Signs Temp Pulse Resp BP Pulse Ox 03/30/22 15:45 66 14 139/62 100 03/30/22 11:17 97.9 F 77 16 151/71 100 Intake and Output 03/30/22 03/30/22 03/30/22 06:59 14:59 22:59 Other: Weight 66.633 kg GENERAL DESCRIPTION: Elderly female lying in bed, no distress. No tachypnea or accessory muscle of respiration use. HEENT: Shows Pallor , no scleral icterus. Oral mucous membrane is dry. No pharyngeal erythema or thrush NECK: Trachea central, no thyromegaly. LUNGS: Unlabored breathing. Decreased breath sound on the base. No wheeze or crackle. HEART: S1, S2, regular rate and rhythm. No loud murmur ABDOMEN: Soft, no tenderness , guarding or rigidity, no organomegaly EXTREMITIES: No edema of feet. SKIN: Diffuse swelling to bilateral lower extremity currently with a blister open wound , no significant redness warmth or drainage. NEUROLOGICAL: The patient is awake, alert, oriented x3, mood and affect normal. Results CBC & Chem 7: 03/31/22 07:34 03/31/22 07:34 Labs: Abnormal Lab Results - Last 24 Hours (Table) 03/30/22 03/30/22 03/30/22 Range/Units 12:23 12:23 12:23 RBC 2.76 L (3.80-5.40) m/uL Hgb 8.7 L (11.4-16.0) gm/dL Hct 29.3 L (34.0-46.0) % MCV 105.9 H (80.0-100.0) fL MCHC 29.8 L (31.0-37.0) g/dL RDW 19.6 H (11.5-15.5) % Myelocytes # (Manual) 0.06 H (0) k/uL Macrocytosis Marked A BUN 78 H (7-17) mg/dL Creatinine 1.64 H (0.52-1.04) mg/dL Glucose 121 H (74-99) mg/dL Urine Appearance Cloudy H (Clear) Urine Protein Trace H (Negative) Urine Blood Small H (Negative) Ur Leukocyte Esterase Large H (Negative) Urine WBC 35 H (0-5) /hpf Ur Squamous Epith Cells 5 H (0-4) /hpf Urine Bacteria Occasional H (None) /hpf Hyaline Casts 3 H (0-2) /lpf Urine Mucus Rare H (None) /hpf Assessment and Plan (1) Swelling of both lower extremities Current Visit: Yes Status: Acute Code(s): M79.89 - OTHER SPECIFIED SOFT TISSUE DISORDERS SNOMED Code(s): 136395075 (2) UTI (urinary tract infection) Current Visit: Yes Status: Acute Code(s): N39.0 - URINARY TRACT INFECTION, SITE NOT SPECIFIED SNOMED Code(s): 10356027 Plan: 1patient was in the hospital mental status changes which is likely multifactorial possible metabolic health did have elevated BUN/creatinine patient did have a significant of edema to bilateral lower extremity however no significant redness warmth or tenderness was noted clinically doubt cellulitis patient did have a positive UA and vague urinary symptoms underlying UTI from enteric gram-negative pathogen not entirely excluded. 2patient will be started on Rocephin 2 g daily while waiting for the culture to finalize. 3continue with the compressive dressing to bilateral lower extremity with Chris wrap to keep the swelling down. We will follow on clinical condition and cultures to further adjust medication if needed Thank you for this consultation will follow this patient along with you Time with Patient: Greater than 30
[2022-03-31 08:34] LABS: Anisocytosis Slight; Basophils % (A) 1 %; Eosinophils # (A) 0.1 k/uL (0-0.7); Eosinophils % (A) 2 %; HCT 27.1 % (34.0-46.0); HGB 8.4 gm/dL (11.4-16.0); Hypochromasia Moderate; Lymphocytes # (A) 0.8 k/uL (1.0-4.8); Lymphocytes % (A) 13 %; MCH 32.5 pg (25.0-35.0); MCV 104.8 fL (80.0-100.0); Macrocytosis Marked; Mean Platelet Volume 8.4; Monocytes # (A) 0.5 k/uL (0-1.0); Monocytes % (A) 7 %; Neutrophils # (A) 4.8 k/uL (1.3-7.7); Neutrophils % (A) 76 %; Platelet Count 237 k/uL (150-450); RBC 2.58 m/uL (3.80-5.40); RDW 19.6 % (11.5-15.5); WBC 6.2 k/uL (3.8-10.6)
[2022-03-31] MEDS: APIXABAN 2.5 MG TABLET PO SCH ×2 (08:37→20:48)
[2022-03-31] MEDS: TORSEMIDE 20 MG TAB PO SCH (08:37)
[2022-03-31] MEDS: BACLOFEN 10 MG TAB PO SCH ×2 (08:37→20:48)
[2022-03-31] MEDS: PANTOPRAZOLE 40 MG TABLET PO SCH (08:38)
[2022-03-31] MEDS: METOPROLOL SUCCINATE (ER) 50 MG TAB.ER.24H PO SCH (08:38)
[2022-03-31] MEDS: LOSARTAN 50 MG TAB PO SCH (08:38)
[2022-03-31] MEDS: MAGNESIUM OXIDE 400 MG TAB PO SCH (08:38)
[2022-03-31] MEDS: ATORVASTATIN 10 MG TAB PO SCH (08:38)
[2022-03-31] MEDS: DORZOLAMIDE-TIMOLOL 2.23%/0.68 10ML BTL BOTH EYES SCH ×2 (08:40→20:48)
[2022-03-31 11:44] LABS: Anion Gap 12.4 mmol/L (10.00-18.00); BUN/Creat Ratio 44.42 Ratio (12.00-20.00); Blood Urea Nitrogen 46.2 mg/dL (9.0-27.0); Calcium 8.6 mg/dL (8.7-10.3); Carbon Dioxide 22.9 mmol/L (20.0-27.5); Non-African American GFR(CKD) 48.3 (60.0-200.0); Potassium 4.7 mmol/L (3.5-5.5)
[2022-03-31] MEDS: MULTIVITAMINS, THERA 1 EACH TAB PO SCH (12:46)
[2022-03-31] MEDS: CHOLECALCIFEROL 125 MCG (5000 IU) TABLET PO SCH (12:46)
[2022-03-31] MEDS: CALCIUM CARBONATE 500 MG CHEWABLE PO SCH (12:46)
[2022-03-31 12:55] VITALS: BMI 30.7
--- NOTE | 2022-03-31 12:59 | P.PN ---
Subjective Progress Note Date: 03/31/22 Principal diagnosis: Urinary tract infection and question of lower extremity cellulitis Patient is a 86-year-old female with a past medical history significant for hypertension hyperlipidemia osteoarthritis atrial fibrillation history of uterine cancer did have a history of surgery and radiation with subsequent significant left edema to bilateral lower extremity and was recently admitted to the hospital and treated for an episode of cellulitis , presented to the hospital mental status changes weakness did have a positive UA and a vague urinary symptoms concerning for asymptomatic UTI on today's evaluation that is 03/31/2022, the patient denies having any fever or chills, the patient is breathing comfortably on room air mention slightly weak this morning no chest pain shortness of breath or cough no abdominal pain or pain to the lower extremity Objective - Vital Signs Vital signs: Vital Signs Temp 97.7 F 03/31/22 07:05 Pulse 64 03/31/22 09:12 Resp 14 03/31/22 07:05 BP 125/68 03/31/22 09:12 Pulse Ox 98 03/31/22 09:12 FiO2 Intake & Output 03/30/22 03/31/22 03/31/22 18:59 06:59 18:59 Intake Total 590 Balance 590 Weight 66.633 kg 66.633 kg Intake: Oral 590 Other: Voiding Method Bedside Commode # Voids 3 - Exam GENERAL DESCRIPTION: An elderly female lying in bed in no distress RESPIRATORY SYSTEM: Unlabored breathing , decreased breath sounds at bases HEART: S1 S2 regular rate and rhythm , ABDOMEN: Soft , no tenderness EXTREMITIES: Bilateral lower extremity currently wrapped in Chris wrap - Labs CBC & Chem 7: 03/31/22 07:34 03/31/22 07:34 Labs: Abnormal Lab Results - Last 24 Hours (Table) 03/30/22 03/30/22 03/30/22 Range/Units 12:23 12:23 12:23 RBC 2.76 L (3.80-5.40) m/uL Hgb 8.7 L (11.4-16.0) gm/dL Hct 29.3 L (34.0-46.0) % MCV 105.9 H (80.0-100.0) fL MCHC 29.8 L (31.0-37.0) g/dL RDW 19.6 H (11.5-15.5) % Lymphocytes # (1.0-4.8) k/uL Myelocytes # (Manual) 0.06 H (0) k/uL Macrocytosis Marked A BUN 78 H (7-17) mg/dL Creatinine 1.64 H (0.52-1.04) mg/dL Glucose 121 H (74-99) mg/dL Urine Appearance Cloudy H (Clear) Urine Protein Trace H (Negative) Urine Blood Small H (Negative) Ur Leukocyte Esterase Large H (Negative) Urine WBC 35 H (0-5) /hpf Ur Squamous Epith Cells 5 H (0-4) /hpf Urine Bacteria Occasional H (None) /hpf Hyaline Casts 3 H (0-2) /lpf Urine Mucus Rare H (None) /hpf 03/31/22 Range/Units 07:34 RBC 2.58 L (3.80-5.40) m/uL Hgb 8.4 L (11.4-16.0) gm/dL Hct 27.1 L (34.0-46.0) % MCV 104.8 H (80.0-100.0) fL MCHC (31.0-37.0) g/dL RDW 19.6 H (11.5-15.5) % Lymphocytes # 0.8 L (1.0-4.8) k/uL Myelocytes # (Manual) (0) k/uL Macrocytosis Marked A BUN (7-17) mg/dL Creatinine (0.52-1.04) mg/dL Glucose (74-99) mg/dL Urine Appearance (Clear) Urine Protein (Negative) Urine Blood (Negative) Ur Leukocyte Esterase (Negative) Urine WBC (0-5) /hpf Ur Squamous Epith Cells (0-4) /hpf Urine Bacteria (None) /hpf Hyaline Casts (0-2) /lpf Urine Mucus (None) /hpf Microbiology - Last 24 Hours (Table) 03/30/22 12:23 Urine Culture - Preliminary Urine,Voided Assessment and Plan (1) UTI (urinary tract infection) Current Visit: Yes Status: Acute Code(s): N39.0 - URINARY TRACT INFECTION, SITE NOT SPECIFIED SNOMED Code(s): 60428173 Plan: 1patient was in the hospital mental status changes which is likely multifactor ial possible metabolic health did have elevated BUN/creatinine patient did have a significant of edema to bilateral lower extremity however no significant redness warmth or tenderness was noted clinically doubt cellulitis patient did have a positive UA and vague urinary symptoms underlying UTI from enteric gram- negative pathogen not entirely excluded. 2patient seemed to have some clinical improvement and will continue with Rocephin 2 g daily while waiting for the culture to finalize. 3continue with the compressive dressing to bilateral lower extremity with Chris wrap to keep the swelling down. Time with Patient: Less than 30
[2022-03-31] MEDS: ASPIRIN 81 MG PO SCH (16:49)
[2022-03-31] MEDS: MELATONIN 5 MG TABLET PO SCH (20:48)
[2022-03-31] MEDS: LATANOPROST 0.005% OPHTH DROPS 2.5 ML BTL BOTH EYES SCH (20:48)
[2022-03-31] MEDS: HYDROcodone/APAP 5-325MG 1 EACH TAB PO PRN (23:56)
--- NOTE | 2022-04-01 02:13 | PN ---
PROGRESS NOTE DATE OF SERVICE: 03/31/2022 SUBJECTIVE: This is an 86-year-old woman who was admitted with possible UTI, sepsis, on IV antibiotics. Cultures are pending. No chest pain. No palpitation. OBJECTIVE: VITAL SIGNS: Pulse is 68, blood pressure 120/60, respirations 20. HEENT: Conjunctivae normal. CARDIOVASCULAR: S1, S2. NERVOUS SYSTEM: Mild diffuse weakness. LABORATORY DATA: Hemoglobin 8.4. The rest of the labs are noted. ASSESSMENT: 1. Possible acute urinary tract infection present on admission. 2. History of recent acute cellulitis. 3. Chronic kidney disease. 4. Anemia. 5. Multiple medical issues. RECOMMENDATIONS: I recommend to continue current management and symptomatic treatment. Continue the IV empiric antibiotics. Follow the cultures. Prognosis guarded because of multiple complex medical issues. Further recommendations to follow. MMRONALDL / IJN: [id number] / MTDLuis
[2022-04-01] MEDS: MAGNESIUM OXIDE 400 MG TAB PO SCH (09:02)
[2022-04-01] MEDS: LOSARTAN 50 MG TAB PO SCH (09:02)
[2022-04-01] MEDS: METOPROLOL SUCCINATE (ER) 50 MG TAB.ER.24H PO SCH (09:02)
[2022-04-01] MEDS: TORSEMIDE 20 MG TAB PO SCH (09:02)
[2022-04-01] MEDS: BACLOFEN 10 MG TAB PO SCH ×2 (09:02→20:09)
[2022-04-01] MEDS: PANTOPRAZOLE 40 MG TABLET PO SCH (09:02)
[2022-04-01] MEDS: DORZOLAMIDE-TIMOLOL 2.23%/0.68 10ML BTL BOTH EYES SCH ×2 (09:03→20:08)
[2022-04-01] MEDS: APIXABAN 2.5 MG TABLET PO SCH ×2 (09:03→20:09)
[2022-04-01] MEDS: ATORVASTATIN 10 MG TAB PO SCH (09:03)
[2022-04-01] MEDS: CALCIUM CARBONATE 500 MG CHEWABLE PO SCH (12:19)
[2022-04-01] MEDS: MULTIVITAMINS, THERA 1 EACH TAB PO SCH (12:19)
[2022-04-01] MEDS: CHOLECALCIFEROL 125 MCG (5000 IU) TABLET PO SCH (12:20)
[2022-04-01] MEDS: ASPIRIN 81 MG PO SCH (16:53)
--- NOTE | 2022-04-01 17:51 | P.PN ---
Subjective Progress Note Date: 04/01/22 Principal diagnosis: Urinary tract infection and question of lower extremity cellulitis Patient is a 86-year-old female with a past medical history significant for hypertension hyperlipidemia osteoarthritis atrial fibrillation history of uterine cancer did have a history of surgery and radiation with subsequent significant left edema to bilateral lower extremity and was recently admitted to the hospital and treated for an episode of cellulitis , presented to the hospital mental status changes weakness did have a positive UA and a vague urinary symptoms concerning for symptomatic UTI on today's evaluation that is 04/01/2022, the patient remains to be afebrile, t he patient is breathing comfortably on room air, patient mentioned did have an episode of confusion last night as she was trying to get out of bed to go to the kitchen and shared off the stove, patient denies chest pain shortness of breath or cough no abdominal pain or pain to the lower extremity Objective - Vital Signs Vital signs: Vital Signs Temp 98.1 F 04/01/22 07:47 Pulse 60 04/01/22 07:47 Resp 13 04/01/22 07:47 BP 111/64 04/01/22 07:47 Pulse Ox 99 04/01/22 07:47 FiO2 Intake & Output 03/31/22 04/01/22 04/01/22 18:59 06:59 18:59 Intake Total 300 Balance 300 Weight 66.633 kg Intake: Oral 300 Other: Voiding Method Bedside Commode Toilet # Voids 1 - Exam GENERAL DESCRIPTION: An elderly female lying in bed in no distress RESPIRATORY SYSTEM: Unlabored breathing , decreased breath sounds at bases HEART: S1 S2 regular rate and rhythm , ABDOMEN: Soft , no tenderness EXTREMITIES: Bilateral lower extremity currently wrapped in Chris wrap - Labs CBC & Chem 7: 03/31/22 07:34 03/31/22 07:34 Labs: Abnormal Lab Results - Last 24 Hours (Table) 03/31/22 Range/Units 07:34 BUN 46.2 H (9.0-27.0) mg/dL Est GFR (CKD-EPI)AfAm 56.0 L (60.0-200.0) Est GFR (CKD-EPI)NonAf 48.3 L (60.0-200.0) BUN/Creatinine Ratio 44.42 H (12.00-20.00) Ratio Calcium 8.6 L (8.7-10.3) mg/dL Microbiology - Last 24 Hours (Table) 03/30/22 12:23 Urine Culture - Final Urine,Voided Assessment and Plan (1) Swelling of both lower extremities Current Visit: Yes Status: Acute Code(s): M79.89 - OTHER SPECIFIED SOFT TISSUE DISORDERS SNOMED Code(s): 887244115 (2) UTI (urinary tract infection) Current Visit: Yes Status: Acute Code(s): N39.0 - URINARY TRACT INFECTION, SITE NOT SPECIFIED SNOMED Code(s): 08076371 Plan: 1patient was in the hospital mental status changes which is likely multifactorial possible metabolic health did have elevated BUN/creatinine patient did have a significant of edema to bilateral lower extremity however no significant redness warmth or tenderness was noted clinically doubt cellulitis patient did have a positive UA and vague urinary symptoms underlying UTI from enteric gram-negative pathogen not entirely excluded. 2continue with the compressive dressing to bilateral lower extremity with Chris wrap to keep the swelling down. 3-patient has shown some clinical improvement and will continue with Rocephin 2 g daily while waiting for the culture to finalize and monitor clinical course closely. Time with Patient: Less than 30
[2022-04-01] MEDS: LATANOPROST 0.005% OPHTH DROPS 2.5 ML BTL BOTH EYES SCH (20:09)
[2022-04-01] MEDS: MELATONIN 5 MG TABLET PO SCH (20:10)
[2022-04-01] MEDS: HYDROcodone/APAP 5-325MG 1 EACH TAB PO PRN (20:14)
--- NOTE | 2022-04-01 21:37 | PN ---
PROGRESS NOTE DATE OF SERVICE: 04/01/2022 SUBJECTIVE: This is an 86-year-old woman, who was admitted with UTI, being closely monitored. Cultures are negative. The patient is on antibiotic. OBJECTIVE: VITAL SIGNS: Pulse is 60, blood pressure 111/60, respirations 13. CHEST: Clear to auscultation. CARDIOVASCULAR: S1 and S2. ABDOMEN: Soft. NERVOUS SYSTEM: No focal deficits. LABORATORY DATA: Reviewed. ASSESSMENT: 1. Acute urinary tract infection, present on admission. 2. History of recent acute cellulitis. 3. Chronic kidney disease. 4. Anemia. 5. Multiple medical issues. RECOMMENDATIONS: Recommend to continue current medications and symptomatic treatment. Otherwise, follow with final cultures. Complete the course of antibiotics. Prognosis is guarded. Further recommendations to follow. MMODL / IJN: [id number] /
[2022-04-02] MEDS: PANTOPRAZOLE 40 MG TABLET PO SCH (09:41)
[2022-04-02] MEDS: TORSEMIDE 20 MG TAB PO SCH (09:41)
[2022-04-02] MEDS: ATORVASTATIN 10 MG TAB PO SCH (09:41)
[2022-04-02] MEDS: MULTIVITAMINS, THERA 1 EACH TAB PO SCH (09:41)
[2022-04-02] MEDS: LOSARTAN 50 MG TAB PO SCH (09:41)
[2022-04-02] MEDS: MAGNESIUM OXIDE 400 MG TAB PO SCH (09:41)
[2022-04-02] MEDS: METOPROLOL SUCCINATE (ER) 50 MG TAB.ER.24H PO SCH (09:41)
[2022-04-02] MEDS: BACLOFEN 10 MG TAB PO SCH ×2 (09:41→20:48)
[2022-04-02] MEDS: APIXABAN 2.5 MG TABLET PO SCH ×2 (09:42→20:48)
[2022-04-02] MEDS: DORZOLAMIDE-TIMOLOL 2.23%/0.68 10ML BTL BOTH EYES SCH ×2 (09:42→20:48)
[2022-04-02] MEDS: CHOLECALCIFEROL 125 MCG (5000 IU) TABLET PO SCH (12:13)
[2022-04-02] MEDS: CALCIUM CARBONATE 500 MG CHEWABLE PO SCH (12:13)
--- NOTE | 2022-04-02 15:43 | P.PN ---
Subjective Progress Note Date: 04/02/22 Principal diagnosis: Urinary tract infection and question of lower extremity cellulitis Patient is a 86-year-old female with a past medical history significant for hypertension hyperlipidemia osteoarthritis atrial fibrillation history of uterine cancer did have a history of surgery and radiation with subsequent significant left edema to bilateral lower extremity and was recently admitted to the hospital and treated for an episode of cellulitis , presented to the hospital mental status changes weakness did have a positive UA and a vague urinary symptoms concerning for symptomatic UTI on today's evaluation that is 04/02/2022, the patient continues to be afebrile, the patient is breathing comfortably on room air, patient denies chest pain shortness of breath or cough no abdominal pain or pain to the lower extremity, feeling better Objective - Vital Signs Vital signs: Vital Signs Temp 98 F 04/02/22 13:18 Pulse 60 04/02/22 13:18 Resp 18 04/02/22 13:18 BP 126/79 04/02/22 13:18 Pulse Ox 100 04/02/22 13:18 FiO2 Intake & Output 04/01/22 04/02/22 04/02/22 18:59 06:59 18:59 Intake Total 400 Balance 400 Intake: Oral 400 Other: Voiding Method Toilet Toilet # Voids 1 # Bowel Movements 1 - Exam GENERAL DESCRIPTION: An elderly female lying in bed in no distress RESPIRATORY SYSTEM: Unlabored breathing , decreased breath sounds at bases HEART: S1 S2 regular rate and rhythm , ABDOMEN: Soft , no tenderness EXTREMITIES: Bilateral lower extremity currently wrapped in Chris wrap - Labs CBC & Chem 7: 03/31/22 07:34 03/31/22 07:34 Assessment and Plan (1) Swelling of both lower extremities Current Visit: Yes Status: Acute Code(s): M79.89 - OTHER SPECIFIED SOFT TISSUE DISORDERS SNOMED Code(s): 398496045 (2) UTI (urinary tract infection) Current Visit: Yes Status: Acute Code(s): N39.0 - URINARY TRACT INFECTION, SITE NOT SPECIFIED SNOMED Code(s): 82918003 Plan: 1patient was in the hospital mental status changes which is likely multifactorial possible metabolic health did have elevated BUN/creatinine patient did have a significant of edema to bilateral lower extremity however no significant redness warmth or tenderness was noted clinically doubt cellulitis patient did have a positive UA and vague urinary symptoms underlying UTI from enteric gram-negative pathogen not entirely excluded. 2continue with the compressive dressing to bilateral lower extremity with Chris wrap to keep the swelling down. 3-patient has shown some clinical improvement, culture have been negative so far for any resistant pathogen to continue with Rocephin while inpatient and consider short course of oral Ceftin on discharge Time with Patient: Less than 30
[2022-04-02] MEDS: ASPIRIN 81 MG PO SCH (18:22)
[2022-04-02] MEDS: MELATONIN 5 MG TABLET PO SCH (20:48)
[2022-04-02] MEDS: DOCUSATE 100 MG CAP PO SCH (20:48)
[2022-04-02] MEDS: LATANOPROST 0.005% OPHTH DROPS 2.5 ML BTL BOTH EYES SCH (20:49)
--- NOTE | 2022-04-03 04:54 | PN ---
PROGRESS NOTE DATE OF SERVICE: 04/02/2022 SUBJECTIVE: This 86-year-old woman was admitted with UTI, is being closely monitored, the patient is on IV antibiotics. No chest pain. No palpitation. No fever. Cultures are negative so far. OBJECTIVE: VITAL SIGNS: Pulse is 60, blood pressure 126/70, respirations 18. CHEST: Clear to auscultation. CARDIOVASCULAR: S1, S2. ABDOMEN: Soft. NERVOUS SYSTEMS: Nonfocal. LABORATORY DATA: Reviewed. ASSESSMENT: 1. Acute urinary tract infection, present on admission. 2. History of recent acute cellulitis. 3. Chronic kidney disease. 4. Anemia. 5. Multiple medical issues. RECOMMENDATIONS: Recommend to continue current medications and symptomatic treatment. Otherwise at this time, continue the antibiotics. Increase ambulation. Possible discharge in the next 24 hours. MMODL / IJN: [id number] /
[2022-04-03 08:26] VITALS: RESP 16
[2022-04-03] MEDS: CALCIUM CARBONATE 500 MG CHEWABLE PO SCH (08:48)
[2022-04-03] MEDS: PANTOPRAZOLE 40 MG TABLET PO SCH (08:48)
[2022-04-03] MEDS: ATORVASTATIN 10 MG TAB PO SCH (08:48)
[2022-04-03] MEDS: BACLOFEN 10 MG TAB PO SCH (08:48)
[2022-04-03] MEDS: TORSEMIDE 20 MG TAB PO SCH (08:48)
[2022-04-03] MEDS: DOCUSATE 100 MG CAP PO SCH (08:48)
[2022-04-03] MEDS: MULTIVITAMINS, THERA 1 EACH TAB PO SCH (08:48)
[2022-04-03] MEDS: CHOLECALCIFEROL 125 MCG (5000 IU) TABLET PO SCH (08:48)
[2022-04-03] MEDS: DORZOLAMIDE-TIMOLOL 2.23%/0.68 10ML BTL BOTH EYES SCH (08:49)
[2022-04-03] MEDS: MAGNESIUM OXIDE 400 MG TAB PO SCH (08:49)
[2022-04-03] MEDS: APIXABAN 2.5 MG TABLET PO SCH (08:49)
[2022-04-03] MEDS: METOPROLOL SUCCINATE (ER) 50 MG TAB.ER.24H PO SCH (08:49)
[2022-04-03] MEDS: LOSARTAN 50 MG TAB PO SCH (08:49)
--- NOTE | 2022-04-03 12:15 | P.PN ---
Subjective Progress Note Date: 04/03/22 Principal diagnosis: Urinary tract infection and question of lower extremity cellulitis Patient is a 86-year-old female with a past medical history significant for hypertension hyperlipidemia osteoarthritis atrial fibrillation history of uterine cancer did have a history of surgery and radiation with subsequent significant left edema to bilateral lower extremity and was recently admitted to the hospital and treated for an episode of cellulitis , presented to the hospital mental status changes weakness did have a positive UA and a vague urinary symptoms concerning for symptomatic UTI on today's evaluation that is 04/03/2022, the patient remains to be afebrile, t he patient is breathing comfortably on room air, patient denies chest pain shortness of breath or cough , the patient denies having any nausea no vomiting no abdominal pain or pain to the lower extremity, patient is feeling better and wants to go home Objective - Vital Signs Vital signs: Vital Signs Temp 97.6 F 04/03/22 08:00 Pulse 63 04/03/22 08:00 Resp 16 04/03/22 08:00 BP 140/72 04/03/22 08:00 Pulse Ox 96 04/03/22 08:00 FiO2 Intake & Output 04/02/22 04/03/22 04/03/22 18:59 06:59 18:59 Other: Voiding Method Toilet # Voids 3 2 # Bowel Movements 2 - Exam GENERAL DESCRIPTION: An elderly female lying in bed in no distress RESPIRATORY SYSTEM: Unlabored breathing , decreased breath sounds at bases HEART: S1 S2 regular rate and rhythm , ABDOMEN: Soft , no tenderness EXTREMITIES: Bilateral lower extremity currently wrapped in Chris wrap - Labs CBC & Chem 7: 03/31/22 07:34 03/31/22 07:34 Assessment and Plan (1) Swelling of both lower extremities Current Visit: Yes Status: Acute Code(s): M79.89 - OTHER SPECIFIED SOFT TISSUE DISORDERS SNOMED Code(s): 768597335 (2) UTI (urinary tract infection) Current Visit: Yes Status: Acute Code(s): N39.0 - URINARY TRACT INFECTION, SITE NOT SPECIFIED SNOMED Code(s): 75312727 Plan: 1patient was in the hospital mental status changes which is likely multifa ctorial possible metabolic health did have elevated BUN/creatinine patient did have a significant of edema to bilateral lower extremity however no significant redness warmth or tenderness was noted clinically doubt cellulitis patient did have a positive UA and vague urinary symptoms underlying UTI from enteric gram- negative pathogen not entirely excluded. 2continue with the compressive dressing to bilateral lower extremity with Chris wrap to keep the swelling down. 3-patient has shown some clinical improvement, culture have been negative so far, plan is to finish therapy with oral Ceftin 7 days on discharge Time with Patient: Less than 30
[2022-04-03 12:29] VITALS: BP 149/71; PULSE 69; TEMP 97.5
== END 2022-04-03 14:26 | disposition home or self-care (01) | DRG 872 ==
LOC: EC 11:13 → 5NMEDONC 15:24 → OBSVTOIN 04-03 10:10
PROVIDERS: ADMIT Hospitalist; ATTEND Hospitalist
DX: A41.9 Sepsis, unspecified organism (principal); N39.0 Urinary tract infection, site not specified; N17.9 Acute kidney failure, unspecified; L03.115 Cellulitis of right lower limb; L03.116 Cellulitis of left lower limb; R41.0 Disorientation, unspecified; Z20.822 Contact with and (suspected) exposure to COVID-19; I83.90 Asymptomatic varicose veins of unspecified lower extremity; I48.91 Unspecified atrial fibrillation; I12.9 Hypertensive chronic kidney disease with stage 1 through stage 4 chronic kidney disease, or unspecified chronic kidney disease; M19.90 Unspecified osteoarthritis, unspecified site; E78.5 Hyperlipidemia, unspecified; D64.9 Anemia, unspecified; N18.9 Chronic kidney disease, unspecified; Z79.01 Long term (current) use of anticoagulants; Z79.899 Other long term (current) drug therapy; Z87.891 Personal history of nicotine dependence; Z86.16 Personal history of COVID-19; Z90.710 Acquired absence of both cervix and uterus; Z92.3 Personal history of irradiation; Z85.42 Personal history of malignant neoplasm of other parts of uterus; Z98.42 Cataract extraction status, left eye; Z98.41 Cataract extraction status, right eye
CPT/HCPCS: 36415; 80048; 80053; 81001; 83605; 83735; 84100; 84484; 85025; 85610; 85730; 87086; 87636; 93005; 96361; 96374; 99285

== ENCOUNTER → 2022-12-26 | Outpatient (CLI) | payer MEDICARE ==
--- NOTE | 2022-12-26 14:28 | BD ---
EXAMINATION TYPE: Axial Bone Density DATE OF EXAM: 12/26/2022 CLINICAL HISTORY: 87 years old Female. ICD-10 CODE: OSTEOPOROSIS M81.0 Height: 58 Weight: 152.7 FRAX RISK QUESTIONS: Alcohol (3 or more units per day): no Family History (Parent hip fracture): no Glucocorticoids (More than 3mos): no (Ex: prednisone, prednisolone, methylprednisolone, dexamethasone, and hydrocortisone). History of Fracture in Adulthood: no Secondary Osteoporosis: 1. Type 1 Diabetes: no 2. Hyperthyroidism: no 3. Menopause before 45: no 4. Malnutrition: no 5. Chronic liver disease: no Rheumatoid Arthritis: no Current Tobacco Use: no RISK FACTORS HISTORY OF: Surgery to Spine/Hip(right/left)/Wrist (right/left): no EXAM MEASUREMENTS: Bone mineral densitometry was performed using the [employer] System. Bone mineral density as measured about the Lumbar spine is: ----- L1-L4(G/cm2): 1.410 T Score Values are as follows: ----- L1: 1.1 ----- L2: 1.4 ----- L3: 2.6 ----- L4: 2.3 ----- L1-L4: 1.9 Z Score Values are as follows: ----- L1: 2.9 ----- L2: 3.2 ----- L3: 4.4 ----- L4: 4.1 ----- L1-L4: 3.8 Bone mineral density has: decreased -13.8 % since study of: 02.22.2017 Bone mineral density about the R hip (g/cm2): 1.079 Bone mineral density about the L hip (g/cm2): 1.066 T Score values are as follows: -----R Neck: -0.1 -----L Neck: 0.0 -----R Total: 0.6 -----L Total: 0.5 Z Score values are as follows: -----R Neck: 2.4 -----L Neck: 2.5 -----R Total: 2.9 -----L Total: 2.8 Bone mineral density has: decreased -8.0 % since study of: 12.21.2017 FRAX%s: The graph provided illustrates a 7.0% chance for a major osteoporotic fx and a 1.4% chance fo r the hips probability for fx in 10 years time. IMPRESSION: Normal (Values between +1 and -1 indicate normal bone mass). Consider repeating this study in 5 year s or sooner if there is some new clinical indication. NOTE: T-SCORE=SD OF THE YOUNG ADULT MEAN.
--- NOTE | 2022-12-27 08:58 | MM ---
Reason for Exam: Screening (asymptomatic). Last mammogram was performed 4 year(s) and 5 month(s) ago. Patient History: Menarche at age 12. First Full-Term at age 28. Left ovary removed at age 69. Right ovary removed at age 69. Hysterectomy at age 69. Postmenopausal. Endometrial cancer, age 69. Maternal aunt had breast cancer, age 90. Prior Study Comparison: 02/20/2012 Bilateral Screening Mammogram, [facility]. 04/03/2013 Bilateral Screening Mammogram, [facility]. 04/14/2014 Bilateral Screening Mammogram, [facility]. 02/22/2017 Bilateral Screening Mammogram, [facility]. 07/30/2018 Bilateral Screening Mammogram, [facility]. Tissue Density: The breast tissue is heterogeneously dense. This may lower the sensitivity of mammography. Findings: Analyzed By CAD. There is no suspicious group of microcalcifications or new suspicious mass in either breast. Overall Assessment: Benign, BI-RAD 2 Management: Screening Mammogram of both breasts in 1 year. . Patient should continue monthly self-breast exams. A clinical breast exam by your physician is recommended on an annual basis. This exam should not preclude additional follow-up of suspicious palpable abnormalities. Note on Adrianna scores and lifetime risk: 1. A Adrianna score greater than 3% is considered moderate risk. If this is the case, consider specialist referral to assess eligibility for a risk reducing agent. 2. If overall lifetime risk for the development of breast cancer is 20% or higher, the patient may qualify for future screening with alternating mammogram and breast MRI. Electronically signed and approved by: Leo Garcia M.D. Radiologis
== END | disposition home or self-care (01) ==
LOC: RADBDWWP 09:54
PROVIDERS: ATTEND Internal Medicine Geriatric Medicine
DX: Z12.31 Encounter for screening mammogram for malignant neoplasm of breast (principal); M81.0 Age-related osteoporosis without current pathological fracture; Z78.0 Asymptomatic menopausal state; Z80.3 Family history of malignant neoplasm of breast
CPT/HCPCS: 77063; 77067; 77080

== ENCOUNTER 2023-03-17 10:38 | Inpatient (IN) | payer MEDICARE ==
[2023-03-17] MEDS ORDERED: SODIUM CHLORIDE 0.9% 500 ML 500 ML IV STA (11:10)
[2023-03-17] MEDS ORDERED: ACETAMINOPHEN TAB 500 MG TAB PO STA (11:56)
[2023-03-17 12:28] LABS: Anisocytosis Slight; HCT 29.1 % (34.0-46.0); HGB 9.5 gm/dL (11.4-16.0); Hypochromasia Slight; MCH 35.1 pg (25.0-35.0); MCHC 32.8 g/dL (31.0-37.0); MCV 107.2 fL (80.0-100.0); Macrocytosis Marked; Mean Platelet Volume 11.2; Platelet Count 177 k/uL (150-450); RBC 2.72 m/uL (3.80-5.40); RDW 17.4 % (11.5-15.5); WBC 13.3 k/uL (3.8-10.6)
--- NOTE | 2023-03-17 12:40 | XR ---
EXAMINATION TYPE: XR chest 2V DATE OF EXAM: 03/17/2023 COMPARISON: 03/17/2022 INDICATION: Weakness, fall TECHNIQUE: Frontal and lateral views of the chest are obtained. FINDINGS: The heart size is enlarged. Pacemaker overlies left chest. The pulmonary vasculature is normal. The lungs are clear. Degenerative joint changes are at the left glenohumeral junction. IMPRESSION: 1. Cardiomegaly.
[2023-03-17 13:15] LABS: Band Neutrophils % 29 %; Eosinophils # (M) 0.13 k/uL (0-0.7); Lymphocytes # (M) 0.13 k/uL (1.0-4.8); Metamyelocytes # (M) 0.53 k/uL (0); Metamyelocytes % 4 %; Monocytes # (M) 0.53 k/uL (0-1.0); Myelocytes # (M) 0.13 k/uL (0); Myelocytes % 1 %; Neutrophils % (M) 62 %; Nucleated Red Blood Cells 0 /100 WBC (0-0); Total Cells Counted 200
[2023-03-17 13:17] LABS: Toxic Vacuolation Present
--- NOTE | 2023-03-17 13:17 | CT ---
EXAMINATION TYPE: CT brain wo con DATE OF EXAM: 03/17/2023 COMPARISON: None INDICATION: Weakness DLP: 1094.4 mGycm, Automated exposure control for dose reduction was used. CONTRAST: None CT of the brain is performed utilizing 3 mm thick sections through the posterior fossa and 3 mm thick sections through the remaining calvarium. Study is performed within 24 hours of arrival to the hosp ital. No abnormal hyperdensity is present to suggest an acute intracranial hemorrhage. No mass lesion is evident. No acute infarcts are evident. There is subcortical hypodensity within the left centrum semiovale. [place] bcortical infarct is not excluded. Chronic white matter changes could be within the differential. The re are additional areas of periventricular white matter hypodensity most likely chronic microvascular ischemic changes. Ventricles and sulci are appropriate for the patient age. Paranasal sinuses and mastoid air cells within the [id number] are clear. IMPRESSION: 1. Subcortical hypodensity within the left centrum semiovale. Correlate for subcortical infarct. Th is may be old. Consider MRI for additional evaluation. 2. Periventricular white matter hypodensity, compatible with chronic white matter ischemic changes.
[2023-03-17 13:38] LABS: ALT 29 U/L (4-34); AST 74 U/L (14-36); African American GFR (CKD) 19 (>60 ml/min/1.73 sqM); Albumin 3.5 g/dL (3.5-5.0); Alkaline Phosphatase 71 U/L (38-126); Anion Gap 22 mmol/L; Blood Urea Nitrogen 58 mg/dL (7-17); Calcium 8.8 mg/dL (8.4-10.2); Carbon Dioxide 17 mmol/L (22-30); Chloride 99 mmol/L (98-107); Glucose 124 mg/dL (74-99); Magnesium 1.9 mg/dL (1.6-2.3); Non-African American GFR(CKD) 17 (>60 ml/min/1.73 sqM); Potassium 4.5 mmol/L (3.5-5.1); Sodium 138 mmol/L (137-145); Total Protein 5.9 g/dL (6.3-8.2)
[2023-03-17 13:39] LABS: INR 1.3 (<1.2); Partial Thromboplastin Time 29.3 sec (22.0-30.0); Prothrombin Time 13.2 sec (10.0-12.5)
--- NOTE | 2023-03-17 13:43 | ED ---
Fall HPI - General Chief Complaint: Fall Stated Complaint: FALL Time Seen by Provider: 03/17/23 11:00 Source: patient, EMS Mode of arrival: EMS - History of Present Illness Initial Comments: 87-year-old female past history of A. fib, hypertension, uterine cancer who presents to the emergency department with weakness. Patient does live alone but has a technology auditor. Behavioral Health Consultant states that she has been weak for the past 3 days. Today the patient was attempting to ambulate in the kitchen when she felt her legs go out from beneath her. She slid on her buttocks against the kitchen cabinets. She denies hitting her head or losing consciousness. EMS did call the help assist the patient up. She originally did not want to come to the hospital however realized that she was so weak and needed to be evaluated. Behavioral Health Consultant thought that she had seen some vaginal bleeding in the patient's depend. Patient did have a hysterectomy due to her history of uterine cancer. They deny any hematuria. She does have dark stools however she states that this is chronic for her due to iron use. Patient denies any fevers. No abdominal pain. No headache or visual changes. No cough. No recent medication adjustments. No other alleviating, precipitating or modifying factors - Related Data Home Medications Medication Instructions Recorded Confirmed Aspirin 81 mg PO W/SUPPER 05/10/15 03/17/23 Atorvastatin Calcium [Lipitor] 10 mg PO W/SUPPER 05/10/15 03/17/23 Latanoprost Ophth [Xalatan 0.005%] 1 drop BOTH EYES HS 04/24/19 03/17/23 Multivitamins, Thera [Multivitamin 1 tab PO W/LUNCH 04/24/19 03/17/23 (formulary)] Apixaban [Eliquis] 2.5 mg PO BID-W/MEALS 03/18/22 03/17/23 Calcium Carbonate 500 mg PO W/LUNCH 03/18/22 03/17/23 Cholecalciferol (Vitamin D3) 125 mcg PO W/LUNCH 03/18/22 03/17/23 [Vitamin D3 (125 MCG = 5,000 IU)] Dorzolamide-Timol 2.23%/0.68% 1 drop BOTH EYES BID 03/18/22 03/17/23 [Cosopt] Losartan Potassium 100 mg PO W/BRKFST 03/18/22 03/17/23 Melatonin 5 - 10 mg PO HS 03/18/22 03/17/23 Pantoprazole [Protonix] 40 mg PO BID-W/MEALS 03/18/22 03/17/23 Baclofen [Lioresal] 5 mg PO W/BRKFST 03/17/23 03/17/23 Cetirizine HCl 10 mg PO W/BRKFST 03/17/23 03/17/23 Ferrous Sulfate [Feosol] 325 mg PO DAILY 03/17/23 03/17/23 Magnesium Oxide [Mag-Ox] 400 mg PO W/BRKFST 03/17/23 03/17/23 Metoprolol Succinate (ER) [Toprol 50 mg PO W/BRKFST 03/17/23 03/17/23 Xl] Sennosides [Senokot] 8.6 - 17.2 mg PO HS 03/17/23 03/17/23 Torsemide [Demadex] 20 mg PO W/BRKFST 03/17/23 03/17/23 allopurinoL [Zyloprim] 100 mg PO W/BRKFST 03/17/23 03/17/23 Allergies Allergy/AdvReac Type Severity Reaction Status Date / Time No Known Allergies Allergy Verified 03/17/23 15:28 Review of Systems ROS Statement: Those systems with pertinent positive or pertinent negative responses have been documented in the HPI. ROS Other: All systems not noted in ROS Statement are negative. Past Medical History Past Medical History: Atrial Fibrillation, Cancer, GERD/Reflux, Hyperlipidemia, Hypertension, Osteoarthritis (OA), Syncope Additional Past Medical History / Comment(s): uterine cancer 14 yrs. ago, surg. & radiation, IGT,chronic dependent edema left leg-leg wrapped, VARICOSE VEINS, urinary incontinence, recent admission to [facility] for fall & syncope History of Any Multi-Drug Resistant Organisms: None Reported Past Surgical History: Bowel Resection, Hysterectomy, Tonsillectomy Additional Past Surgical History / Comment(s): lung surgery left thoracotomy negative for lung mass 2007?, SMALL VAGINAL MASS REMOVED, COLONOSCOPY,ELISEO CATARACT. Past Anesthesia/Blood Transfusion Reactions: No Reported Reaction Past Psychological History: No Psychological Hx Reported Smoking Status: Former smoker Past Alcohol Use History: Occasional Past Drug Use History: None Reported - Past Family History Father Family Medical History: Coronary Artery Disease (CAD) Mother Family Medical History: Coronary Artery Disease (CAD) Brother(s) Family Medical History: Cancer Son(s) Family Medical History: Respiratory Disorder General Exam Limitations: no limitations General appearance: alert, in no apparent distress Head exam: Present: atraumatic, normocephalic, normal inspection Eye exam: Present: normal appearance, PERRL, EOMI. Absent: scleral icterus, conjunctival injection, periorbital swelling ENT exam: Present: normal exam, mucous membranes moist Neck exam: Present: normal inspection. Absent: tenderness, meningismus, lymphadenopathy Respiratory exam: Present: normal lung sounds bilaterally. Absent: respiratory distress, wheezes, rales, rhonchi, stridor Cardiovascular Exam: Present: regular rate, normal rhythm, normal heart sounds. Absent: systolic murmur, diastolic murmur, rubs, gallop, clicks GI/Abdominal exam: Present: soft, normal bowel sounds. Absent: distended, tenderness, guarding, rebound, rigid Rectal exam: Present: black stool, other (dark, merrill like stool) Extremities exam: Present: full ROM, normal capillary refill, pedal edema. Absent: tenderness, joint swelling, calf tenderness Back exam: Present: normal inspection Neurological exam: Present: alert, oriented X3, CN II-XII intact Psychiatric exam: Present: normal affect, normal mood Skin exam: Present: warm, dry, intact, normal color. Absent: rash Course Vital Signs 03/17/23 03/17/23 03/17/23 10:41 10:45 10:54 Temperature 97.4 F L Pulse Rate 74 Respiratory 18 Rate Blood Pressure 85/47 85/47 Blood Pressure [Left Arm Sitting] Blood Pressure [Left Arm Standing] Blood Pressure [Left Arm Supine] O2 Sat by Pulse 94 L 97 97 Oximetry 03/17/23 03/17/23 03/17/23 11:00 11:15 11:30 Temperature Pulse Rate Respiratory Rate Blood Pressure 78/49 93/41 112/80 Blood Pressure [Left Arm Sitting] Blood Pressure [Left Arm Standing] Blood Pressure [Left Arm Supine] O2 Sat by Pulse Oximetry 03/17/23 03/17/23 03/17/23 11:45 12:00 12:15 Temperature Pulse Rate Respiratory Rate Blood Pressure 112/80 112/80 130/96 Blood Pressure [Left Arm Sitting] Blood Pressure [Left Arm Standing] Blood Pressure [Left Arm Supine] O2 Sat by Pulse 95 Oximetry 03/17/23 03/17/23 03/17/23 12:30 12:45 13:00 Temperature Pulse Rate Respiratory Rate Blood Pressure 130/96 130/96 130/96 Blood Pressure [Left Arm Sitting] Blood Pressure [Left Arm Standing] Blood Pressure [Left Arm Supine] O2 Sat by Pulse Oximetry 03/17/23 03/17/23 03/17/23 13:15 13:30 13:45 Temperature Pulse Rate 65 59 L 65 Respiratory 12 23 26 H Rate Blood Pressure 83/61 100/55 100/55 Blood Pressure [Left Arm Sitting] Blood Pressure [Left Arm Standing] Blood Pressure [Left Arm Supine] O2 Sat by Pulse Oximetry 03/17/23 03/17/23 03/17/23 14:00 14:15 14:30 Temperature Pulse Rate 68 63 62 Respiratory 28 H 26 H 28 H Rate Blood Pressure 100/55 82/54 82/54 Blood Pressure [Left Arm Sitting] Blood Pressure [Left Arm Standing] Blood Pressure [Left Arm Supine] O2 Sat by Pulse Oximetry 03/17/23 03/17/23 03/17/23 14:45 15:00 15:15 Temperature Pulse Rate 65 60 Respiratory 21 42 H 23 Rate Blood Pressure 82/54 82/54 102/54 Blood Pressure [Left Arm Sitting] Blood Pressure [Left Arm Standing] Blood Pressure [Left Arm Supine] O2 Sat by Pulse 87 L Oximetry 03/17/23 03/17/23 03/17/23 15:30 15:45 15:54 Temperature Pulse Rate 77 76 Respiratory Rate Blood Pressure 102/54 102/54 Blood Pressure 109/82 [Left Arm Sitting] Blood Pressure 119/80 [Left Arm Standing] Blood Pressure 118/76 [Left Arm Supine] O2 Sat by Pulse 93 L 93 L Oximetry 03/17/23 03/17/23 03/17/23 16:00 16:15 16:30 Temperature Pulse Rate 73 73 71 Respiratory Rate Blood Pressure 102/54 102/54 102/54 Blood Pressure [Left Arm Sitting] Blood Pressure [Left Arm Standing] Blood Pressure [Left Arm Supine] O2 Sat by Pulse 91 L 92 L 92 L Oximetry 03/17/23 03/17/23 03/17/23 16:45 17:00 17:15 Temperature Pulse Rate 68 Respiratory Rate Blood Pressure 102/54 102/54 Blood Pressure [Left Arm Sitting] Blood Pressure [Left Arm Standing] Blood Pressure [Left Arm Supine] O2 Sat by Pulse 92 L 94 L 91 L Oximetry 03/17/23 03/17/23 03/17/23 17:30 17:45 18:00 Temperature Pulse Rate 73 70 Respiratory Rate Blood Pressure Blood Pressure [Left Arm Sitting] Blood Pressure [Left Arm Standing] Blood Pressure [Left Arm Supine] O2 Sat by Pulse 91 L 91 L 91 L Oximetry 03/17/23 03/17/23 03/17/23 18:15 18:30 18:45 Temperature Pulse Rate 73 Respiratory Rate Blood Pressure Blood Pressure [Left Arm Sitting] Blood Pressure [Left Arm Standing] Blood Pressure [Left Arm Supine] O2 Sat by Pulse 91 L 91 L 85 L Oximetry 03/17/23 03/17/23 03/17/23 18:57 19:00 19:15 Temperature Pulse Rate 69 76 Respiratory 18 Rate Blood Pressure 118/88 119/88 Blood Pressure [Left Arm Sitting] Blood Pressure [Left Arm Standing] Blood Pressure [Left Arm Supine] O2 Sat by Pulse 97 90 L 93 L Oximetry 03/17/23 19:33 Temperature Pulse Rate 73 Respiratory 22 Rate Blood Pressure 119/88 Blood Pressure [Left Arm Sitting] Blood Pressure [Left Arm Standing] Blood Pressure [Left Arm Supine] O2 Sat by Pulse 95 Oximetry Medical Decision Making - Medical Decision Making Was pt. sent in by a medical professional or institution (, PA, STORE KEEPER, urgent care, hospital, or detention...) When possible be specific @ -No Did you speak to anyone other than the patient for history (EMS, parent, family, police, friend...)? What history was obtained from this source @ -technology auditor Did you review nursing and triage notes (agree or disagree)? Why? @ -I reviewed and agree with nursing and triage notes Were old charts reviewed (outside hosp., previous admission, EMS record, old EKG, old radiological studies, urgent care reports/EKG's, detention records)? Report findings @ -No old charts were reviewed Differential Diagnosis (chest pain, altered mental status, abdominal pain women, abdominal pain men, vaginal bleeding, weakness, fever, dyspnea, syncope, headache, dizziness, GI bleed, back pain, seizure, CVA, palpatations, mental health, musculoskeletal)? @ -Differential Weakness: Hypoglycemia, shock, sepsis, hyponatremia, anemia, infection, ID, ETOH, adverse medicine reaction, overdose, stroke, this is not meant to be an all-inclusive list. EKG interpreted by me (3pts min.). @ --Demonstrates ventricular pacemaker with a rate of 60. QRS 168. QTC 503. No acute ST segment elevation. Pacemaker captures appropriately X-rays interpreted by me (1pt min.). @ -yes, cardiomegaly CT interpreted by me (1pt min.). @ - yes subcortical infarct U/S interpreted by me (1pt. min.). @ -None done What testing was considered but not performed or refused? (CT, X-rays, U/S, labs)? Why? @ -None What meds were considered but not given or refused? Why? @ -None Did you discuss the management of the patient with other professionals (professionals i.e. , PA, STORE KEEPER, lab, RT, psych nurse, nursing home social worker, erp programmer, teacher, protective services officer, case packer and sealer)? Give summary @ -dr abbb and dr. sherwood Was smoking cessation discussed for >3mins.? @ -No Was critical care preformed (if so, how long)? @ -No Were there social determinants of health that impacted care today? How? (Homelessness, low income, unemployed, alcoholism, drug addiction, trans portation, low edu. Level, literacy, decrease access to med. care, skilled nursing, rehab)? @ -No Was there de-escalation of care discussed even if they declined (Discuss DNR or withdrawal of care, Hospice)? DNR status @ -No What co-morbidities impacted this encounter? (DM, HTN, Smoking, COPD, CAD, Cancer, CVA, ARF, Chemo, Hep., AIDS, mental health diagnosis, sleep apnea, morbid obesity)? @ -htn, hld, afib Was patient admitted / discharged? Hospital course, mention meds given and route, prescriptions, significant lab abnormalities, going to OR and other pertinent info. @ -Upon arrival patient was placed into room 5. Thorough history and physical exam was performed. Patient placed on continuous pulse ox and cardiac monitoring. IV is established. Laboratory studies were conducted and patient is hypotensive. She was given a 500 bolus of normal saline followed by 75 mL per hour. Laboratory studies are conducted and it demonstrates a hemoglobin of 9.5. White count of 13.3. Lactic acid is 6.7. Troponin 0.152. BNP of 44,000. The patient is occult positive. She is not complaining of any chest pain and does have occult positive stool therefore will hold off on heparinizing the patient at this time. She remains on IV fluids for her lactic acidosis. Bessie ent also has a marked elevated creatinine level. Awaiting urine sample at this time. We'll obtain blood cultures and start Rocephin for leukocytosis. Chest x-ray and CT of the brain are performed as well as an ultrasound of the left lower extremity. I did speak with Dr. Jean-Baptiste in regard to the patient's elevated troponins. We will monitor at this time due to kidney failure. Spoke with Dr. Bonilla for admission Undiagnosed new problem with uncertain prognosis? @ -yes Drug Therapy requiring intensive monitoring for toxicity (Heparin, Nitro, Insulin, Cardizem)? @ -No Were any procedures done? @ -No Diagnosis/symptom? @ -acute weakness, lactic acidosis, occult positive stool, nstemi, zac Acute, or Chronic, or Acute on Chronic? @ -acute Uncomplicated (without systemic symptoms) or Complicated (systemic symptoms)? @ -complicated Side effects of treatment? @ -No Exacerbation, Progression, or Severe Exacerbation? @ -No Poses a threat to life or bodily function? How? (Chest pain, USA, ID, pneumonia, PE, COPD, DKA, ARF, appy, cholecystitis, CVA, Diverticulitis, Homicidal, Suicidal, threat to staff... and all critical care pts) @ -yes - Lab Data Result diagrams: 03/19/23 08:24 03/19/23 07:56 Lab Results 03/17/23 03/17/23 03/17/23 Range/Units 11:54 11:54 12:43 WBC 13.3 H (3.8-10.6) k/uL RBC 2.72 L (3.80-5.40) m/uL Hgb 9.5 L (11.4-16.0) gm/dL Hct 29.1 L (34.0-46.0) % MCV 107.2 H (80.0-100.0) fL MCH 35.1 H (25.0-35.0) pg MCHC 32.8 (31.0-37.0) g/dL RDW 17.4 H (11.5-15.5) % Plt Count 177 (150-450) k/uL MPV 11.2 Neutrophils % (Manual) 62 % Band Neuts % (Manual) 29 % Lymphocytes % (Manual) 1 % Monocytes % (Manual) 4 % Eosinophils % (Manual) 1 % Metamyelocytes % 4 % Myelocytes % 1 % Neutrophils # (Manual) 12.10 H (1.3-7.7) k/uL Lymphocytes # (Manual) 0.13 L (1.0-4.8) k/uL Monocytes # (Manual) 0.53 (0-1.0) k/uL Eosinophils # (Manual) 0.13 (0-0.7) k/uL Metamyelocytes # (Man) 0.53 H (0) k/uL Myelocytes # (Manual) 0.13 H (0) k/uL Nucleated RBCs 0 (0-0) /100 WBC Manual Slide Review Performed Toxic Vacuolation Present Hypochromasia Slight Anisocytosis Slight Macrocytosis Marked A PT (10.0-12.5) sec INR (<1.2) APTT (22.0-30.0) sec Sodium (137-145) mmol/L Potassium (3.5-5.1) mmol/L Chloride (98-107) mmol/L Carbon Dioxide (22-30) mmol/L Anion Gap mmol/L BUN (7-17) mg/dL Creatinine (0.52-1.04) mg/dL Est GFR (CKD-EPI)AfAm (>60 ml/min/1.73 sqM) Est GFR (CKD-EPI)NonAf (>60 ml/min/1.73 sqM) Glucose (74-99) mg/dL Lactic Ac Sepsis Rflx Y Plasma Lactic Acid Edu 6.7 H* (0.7-2.0) mmol/L Calcium (8.4-10.2) mg/dL Magnesium (1.6-2.3) mg/dL Total Bilirubin (0.2-1.3) mg/dL AST (14-36) U/L ALT (4-34) U/L Alkaline Phosphatase (38-126) U/L Troponin I (0.000-0.034) ng/mL NT-Pro-B Natriuret Pep pg/mL Total Protein (6.3-8.2) g/dL Albumin (3.5-5.0) g/dL Stool Occult Blood (Negative) 03/17/23 03/17/23 03/17/23 Range/Units 13:13 13:13 13:13 WBC (3.8-10.6) k/uL RBC (3.80-5.40) m/uL Hgb (11.4-16.0) gm/dL Hct (34.0-46.0) % MCV (80.0-100.0) fL MCH (25.0-35.0) pg MCHC (31.0-37.0) g/dL RDW (11.5-15.5) % Plt Count (150-450) k/uL MPV Neutrophils % (Manual) % Band Neuts % (Manual) % Lymphocytes % (Manual) % Monocytes % (Manual) % Eosinophils % (Manual) % Metamyelocytes % % Myelocytes % % Neutrophils # (Manual) (1.3-7.7) k/uL Lymphocytes # (Manual) (1.0-4.8) k/uL Monocytes # (Manual) (0-1.0) k/uL Eosinophils # (Manual) (0-0.7) k/uL Metamyelocytes # (Man) (0) k/uL Myelocytes # (Manual) (0) k/uL Nucleated RBCs (0-0) /100 WBC Manual Slide Review Toxic Vacuolation Hypochromasia Anisocytosis Macrocytosis PT 13.2 H (10.0-12.5) sec INR 1.3 H (<1.2) APTT 29.3 (22.0-30.0) sec Sodium 138 (137-145) mmol/L Potassium 4.5 (3.5-5.1) mmol/L Chloride 99 (98-107) mmol/L Carbon Dioxide 17 L (22-30) mmol/L Anion Gap 22 mmol/L BUN 58 H (7-17) mg/dL Creatinine 2.51 H (0.52-1.04) mg/dL Est GFR (CKD-EPI)AfAm 19 (>60 ml/min/1.73 sqM) Est GFR (CKD-EPI)NonAf 17 (>60 ml/min/1.73 sqM) Glucose 124 H (74-99) mg/dL Lactic Ac Sepsis Rflx Plasma Lactic Acid Edu (0.7-2.0) mmol/L Calcium 8.8 (8.4-10.2) mg/dL Magnesium 1.9 (1.6-2.3) mg/dL Total Bilirubin 1.0 (0.2-1.3) mg/dL AST 74 H (14-36) U/L ALT 29 (4-34) U/L Alkaline Phosphatase 71 (38-126) U/L Troponin I 0.152 H* (0.000-0.034) ng/mL NT-Pro-B Natriuret Pep 00132 pg/mL Total Protein 5.9 L (6.3-8.2) g/dL Albumin 3.5 (3.5-5.0) g/dL Stool Occult Blood (Negative) 03/17/23 Range/Units 13:20 WBC (3.8-10.6) k/uL RBC (3.80-5.40) m/uL Hgb (11.4-16.0) gm/dL Hct (34.0-46.0) % MCV (80.0-100.0) fL MCH (25.0-35.0) pg MCHC (31.0-37.0) g/dL RDW (11.5-15.5) % Plt Count (150-450) k/uL MPV Neutrophils % (Manual) % Band Neuts % (Manual) % Lymphocytes % (Manual) % Monocytes % (Manual) % Eosinophils % (Manual) % Metamyelocytes % % Myelocytes % % Neutrophils # (Manual) (1.3-7.7) k/uL Lymphocytes # (Manual) (1.0-4.8) k/uL Monocytes # (Manual) (0-1.0) k/uL Eosinophils # (Manual) (0-0.7) k/uL Metamyelocytes # (Man) (0) k/uL Myelocytes # (Manual) (0) k/uL Nucleated RBCs (0-0) /100 WBC Manual Slide Review Toxic Vacuolation Hypochromasia Anisocytosis Macrocytosis PT (10.0-12.5) sec INR (<1.2) APTT (22.0-30.0) sec Sodium (137-145) mmol/L Potassium (3.5-5.1) mmol/L Chloride (98-107) mmol/L Carbon Dioxide (22-30) mmol/L Anion Gap mmol/L BUN (7-17) mg/dL Creatinine (0.52-1.04) mg/dL Est GFR (CKD-EPI)AfAm (>60 ml/min/1.73 sqM) Est GFR (CKD-EPI)NonAf (>60 ml/min/1.73 sqM) Glucose (74-99) mg/dL Lactic Ac Sepsis Rflx Plasma Lactic Acid Edu (0.7-2.0) mmol/L Calcium (8.4-10.2) mg/dL Magnesium (1.6-2.3) mg/dL Total Bilirubin (0.2-1.3) mg/dL AST (14-36) U/L ALT (4-34) U/L Alkaline Phosphatase (38-126) U/L Troponin I (0.000-0.034) ng/mL NT-Pro-B Natriuret Pep pg/mL Total Protein (6.3-8.2) g/dL Albumin (3.5-5.0) g/dL Stool Occult Blood Positive H (Negative) Disposition Clinical Impression: Lymphedema, Anemia, ZAC (acute kidney injury), NSTEMI (non-ST elevated myocardial infarction), Occult blood positive stool Disposition: ADMITTED IP TO THIS [facility] Condition: Poor Is patient prescribed a controlled substance at d/c from ED?: No Time of Disposition: 15:21 Decision to Admit Reason: Admit from EC Decision Date: 03/17/23 Decision Time: 15:21
[2023-03-17 14:11] LABS: NT-Pro-B-Type Natriuretic Pept 44200 pg/mL
[2023-03-17] MEDS ORDERED: NALOXONE 0.4 MG/ML 1 ML VIAL IV PRN (15:08)
--- NOTE | 2023-03-17 15:09 | US ---
EXAMINATION TYPE: US venous doppler duplex LE LT DATE OF EXAM: 03/17/2023 2:48 PM COMPARISON: NONE CLINICAL INDICATION: Female, 87 years old with history of pain, swelling; lymphedema x 10 years after radiation, forgot to unwrap leg last night now calf is purple SIDE PERFORMED: Left TECHNIQUE: The lower extremity deep venous system is examined utilizing real time linear array sonog rosie with graded compression, doppler sonography and color-flow sonography. VESSELS IMAGED: Common Femoral Vein Deep Femoral Vein Greater Saphenous Vein * Femoral Vein Popliteal Vein Small Saphenous Vein * Proximal Calf Veins (* superficial vessels) Imaged veins fill with normal color signal, show the expected waveforms and compressibility. No evide nce of intraluminal filling defect. Left Leg: Negative for DVT, as visualized exam severely limited due to edema and body habitus IMPRESSION: * Exam limited by edema and body habitus. * No left lower extremity DVT is identified.
[2023-03-17] MEDS ORDERED: cefTRIAXone IN SWFI 1,000 MG/10 ML SYRINGE IVP STA (15:26)
[2023-03-17] MEDS: SODIUM CHLORIDE 0.9% 1,000 ML IV SCH (15:40)
--- NOTE | 2023-03-17 18:13 | P.GSCN ---
History of Present Illness Consult date: 03/17/23 History of present illness: Patient is an 79-year-old female who presents to [facility] secondary to fall. Per patient's caregiver patient was found on the ground prompting her to call EMS to bring patient to the hospital. She states that when she had found the patient on the ground she had noticed that the patient's undergarments were full of black tarry as well as bright red blood stool. Patient states she is unsure if she had hit her head. She states that she had lightheaded and dizziness the day prior. Denies any abdominal pain nausea or vomiting. No fevers or chills. No shortness of breath or chest pain. Patient states that she has had previous episodes of hematochezia, but states that she has attributed this to hemorrhoid disease in the past. Denies any rectal pain or itching currently. She states that since presentation to the ER she has been passing flatus, but has had no further bowel movements. No hematemesis. Upon presentation to [facility] emergency department a fecal occult blood test was performed which was positive, prompting general surgery consultation. Review of Systems Negative except for as stated above Past Medical History Past Medical History: Atrial Fibrillation, Cancer, GERD/Reflux, Hyperlipidemia, Hypertension, Osteoarthritis (OA), Syncope Additional Past Medical History / Comment(s): uterine cancer 14 yrs. ago, surg. & radiation, IGT,chronic dependent edema left leg-leg wrapped, VARICOSE VEINS, urinary incontinence, recent admission to [facility] for fall & syncope History of Any Multi-Drug Resistant Organisms: None Reported Past Surgical History: Bowel Resection, Hysterectomy, Tonsillectomy Additional Past Surgical History / Comment(s): lung surgery left thoracotomy negative for lung mass 2007?, SMALL VAGINAL MASS REMOVED, COLONOSCOPY,ELISEO CATARACT. Past Anesthesia/Blood Transfusion Reactions: No Reported Reaction Past Psychological History: No Psychological Hx Reported Smoking Status: Former smoker Past Alcohol Use History: Occasional Past Drug Use History: None Reported - Past Family History Father Family Medical History: Coronary Artery Disease (CAD) Mother Family Medical History: Coronary Artery Disease (CAD) Brother(s) Family Medical History: Cancer Son(s) Family Medical History: Respiratory Disorder Medications and Allergies Home Medications Medication Instructions Recorded Confirmed Type Aspirin 81 mg PO W/SUPPER 05/10/15 03/17/23 History Atorvastatin Calcium [Lipitor] 10 mg PO W/SUPPER 05/10/15 03/17/23 History Latanoprost Ophth [Xalatan 0.005%] 1 drop BOTH EYES HS 04/24/19 03/17/23 History Multivitamins, Thera [Multivitamin 1 tab PO W/LUNCH 04/24/19 03/17/23 History (formulary)] Apixaban [Eliquis] 2.5 mg PO BID-W/MEALS 03/18/22 03/17/23 History Calcium Carbonate 500 mg PO W/LUNCH 03/18/22 03/17/23 History Cholecalciferol (Vitamin D3) 125 mcg PO W/LUNCH 03/18/22 03/17/23 History [Vitamin D3 (125 MCG = 5,000 IU)] Dorzolamide-Timol 2.23%/0.68% 1 drop BOTH EYES BID 03/18/22 03/17/23 History [Cosopt] Losartan Potassium 100 mg PO W/BRKFST 03/18/22 03/17/23 History Melatonin 5 - 10 mg PO HS 03/18/22 03/17/23 History Pantoprazole [Protonix] 40 mg PO BID-W/MEALS 03/18/22 03/17/23 History Baclofen [Lioresal] 5 mg PO W/BRKFST 03/17/23 03/17/23 History Cetirizine HCl 10 mg PO W/BRKFST 03/17/23 03/17/23 History Ferrous Sulfate [Feosol] 325 mg PO DAILY 03/17/23 03/17/23 History Magnesium Oxide [Mag-Ox] 400 mg PO W/BRKFST 03/17/23 03/17/23 History Metoprolol Succinate (ER) [Toprol 50 mg PO W/BRKFST 03/17/23 03/17/23 History Xl] Sennosides [Senokot] 8.6 - 17.2 mg PO HS 03/17/23 03/17/23 History Torsemide [Demadex] 20 mg PO W/BRKFST 03/17/23 03/17/23 History allopurinoL [Zyloprim] 100 mg PO W/BRKFST 03/17/23 03/17/23 History Allergies Allergy/AdvReac Type Severity Reaction Status Date / Time No Known Allergies Allergy Verified 03/17/23 15:28 Surgical - Exam Vital Signs Temp Pulse Resp BP Pulse Ox 97.4 F L 74 18 85/47 97 03/17/23 10:54 03/17/23 10:54 03/17/23 10:54 03/17/23 10:54 03/17/23 10:54 Gen: AxO, NAD Pulm: non-labored respirations Abd: soft, non-tender, minimally distended, no guarding/rebound/rigidity Extrem: no edema seen Results - Labs 03/17/23 11:54 03/17/23 13:13 Abnormal Lab Results - Last 24 Hours (Table) 03/17/23 03/17/23 03/17/23 Range/Units 11:54 11:54 13:13 WBC 13.3 H (3.8-10.6) k/uL RBC 2.72 L (3.80-5.40) m/uL Hgb 9.5 L (11.4-16.0) gm/dL Hct 29.1 L (34.0-46.0) % MCV 107.2 H (80.0-100.0) fL MCH 35.1 H (25.0-35.0) pg RDW 17.4 H (11.5-15.5) % Neutrophils # (Manual) 12.10 H (1.3-7.7) k/uL Lymphocytes # (Manual) 0.13 L (1.0-4.8) k/uL Metamyelocytes # (Man) 0.53 H (0) k/uL Myelocytes # (Manual) 0.13 H (0) k/uL Macrocytosis Marked A PT 13.2 H (10.0-12.5) sec INR 1.3 H (<1.2) Carbon Dioxide (22-30) mmol/L BUN (7-17) mg/dL Creatinine (0.52-1.04) mg/dL Glucose (74-99) mg/dL Plasma Lactic Acid Edu 6.7 H* (0.7-2.0) mmol/L AST (14-36) U/L Troponin I (0.000-0.034) ng/mL Total Protein (6.3-8.2) g/dL Stool Occult Blood (Negative) 03/17/23 03/17/23 03/17/23 Range/Units 13:13 13:13 13:20 WBC (3.8-10.6) k/uL RBC (3.80-5.40) m/uL Hgb (11.4-16.0) gm/dL Hct (34.0-46.0) % MCV (80.0-100.0) fL MCH (25.0-35.0) pg RDW (11.5-15.5) % Neutrophils # (Manual) (1.3-7.7) k/uL Lymphocytes # (Manual) (1.0-4.8) k/uL Metamyelocytes # (Man) (0) k/uL Myelocytes # (Manual) (0) k/uL Macrocytosis PT (10.0-12.5) sec INR (<1.2) Carbon Dioxide 17 L (22-30) mmol/L BUN 58 H (7-17) mg/dL Creatinine 2.51 H (0.52-1.04) mg/dL Glucose 124 H (74-99) mg/dL Plasma Lactic Acid Edu (0.7-2.0) mmol/L AST 74 H (14-36) U/L Troponin I 0.152 H* (0.000-0.034) ng/mL Total Protein 5.9 L (6.3-8.2) g/dL Stool Occult Blood Positive H (Negative) 03/17/23 03/17/23 Range/Units 15:50 15:50 WBC (3.8-10.6) k/uL RBC (3.80-5.40) m/uL Hgb (11.4-16.0) gm/dL Hct (34.0-46.0) % MCV (80.0-100.0) fL MCH (25.0-35.0) pg RDW (11.5-15.5) % Neutrophils # (Manual) (1.3-7.7) k/uL Lymphocytes # (Manual) (1.0-4.8) k/uL Metamyelocytes # (Man) (0) k/uL Myelocytes # (Manual) (0) k/uL Macrocytosis PT (10.0-12.5) sec INR (<1.2) Carbon Dioxide (22-30) mmol/L BUN (7-17) mg/dL Creatinine (0.52-1.04) mg/dL Glucose (74-99) mg/dL Plasma Lactic Acid Edu 4.3 H* (0.7-2.0) mmol/L AST (14-36) U/L Troponin I 0.157 H* (0.000-0.034) ng/mL Total Protein (6.3-8.2) g/dL Stool Occult Blood (Negative) Diabetes panel 03/17/23 Range/Units 13:13 Sodium 138 (137-145) mmol/L Potassium 4.5 (3.5-5.1) mmol/L Chloride 99 (98-107) mmol/L Carbon Dioxide 17 L (22-30) mmol/L BUN 58 H (7-17) mg/dL Creatinine 2.51 H (0.52-1.04) mg/dL Glucose 124 H (74-99) mg/dL Calcium 8.8 (8.4-10.2) mg/dL AST 74 H (14-36) U/L ALT 29 (4-34) U/L Alkaline Phosphatase 71 (38-126) U/L Total Protein 5.9 L (6.3-8.2) g/dL Albumin 3.5 (3.5-5.0) g/dL Calcium panel 03/17/23 Range/Units 13:13 Calcium 8.8 (8.4-10.2) mg/dL Albumin 3.5 (3.5-5.0) g/dL Pituitary panel 03/17/23 Range/Units 13:13 Sodium 138 (137-145) mmol/L Potassium 4.5 (3.5-5.1) mmol/L Chloride 99 (98-107) mmol/L Carbon Dioxide 17 L (22-30) mmol/L BUN 58 H (7-17) mg/dL Creatinine 2.51 H (0.52-1.04) mg/dL Glucose 124 H (74-99) mg/dL Calcium 8.8 (8.4-10.2) mg/dL Adrenal panel 03/17/23 Range/Units 13:13 Sodium 138 (137-145) mmol/L Potassium 4.5 (3.5-5.1) mmol/L Chloride 99 (98-107) mmol/L Carbon Dioxide 17 L (22-30) mmol/L BUN 58 H (7-17) mg/dL Creatinine 2.51 H (0.52-1.04) mg/dL Glucose 124 H (74-99) mg/dL Calcium 8.8 (8.4-10.2) mg/dL Total Bilirubin 1.0 (0.2-1.3) mg/dL AST 74 H (14-36) U/L ALT 29 (4-34) U/L Alkaline Phosphatase 71 (38-126) U/L Total Protein 5.9 L (6.3-8.2) g/dL Albumin 3.5 (3.5-5.0) g/dL Assessment and Plan Assessment: Patient is an 87-year-old female who was found down by her caregiver with FOBT positive stools. Plan: -CLD as tolerated -Trend Hb; transfuse per primary -BID PPI therapy -PRN pain control -No acute surgical intervention; will monitor for further episodes of melena/hematochezia or drop in Hb. If further evidence of GIB will consider endoscopic evaluation. Benjamin Aviles MD General Surgery
--- NOTE | 2023-03-17 18:40 | US ---
EXAMINATION TYPE: US carotid duplex BILAT DATE OF EXAM: 03/17/2023 COMPARISON: CTa 2015, MRa 2014, US 2014 CLINICAL INDICATION: Female, 87 years old with history of stroke; Stroke, *hx of critical stenosis le ft ICA. *Patient provided a limited history. Patient states the last procedure she had performed on h er carotid arteries was in the , poor historian. TECHNIQUE: Carotid duplex ultrasound examination. Indirect Doppler criteria was utilized. FINDINGS: EXAM MEASUREMENTS: RIGHT: Peak Systolic Velocity (PSV) cm/sec ----- Right CCA: 56.6 ----- Right ICA: 75.6 ----- Right ECA: 44.4 ICA/CCA ratio: 1.3 RIGHT: End Diastole cm/sec ----- Right CCA: 10.4 ----- Right ICA: 12.7 ----- Right ECA: 0.0 LEFT: Peak Systolic Velocity (PSV) cm/sec ----- Left CCA: 54.9 ----- Left ICA: 158.8 ----- Left ECA: 80.1 ICA/CCA ratio: 2.9 LEFT: End Diastole cm/sec ----- Left CCA: 8.6 ----- Left ICA: 16.6 ----- Left ECA: 0.0 VERTEBRALS (direction of flow): Right Vertebral: Unable to visualize Left Vertebral: Antegrade Rhythm: Arrhythmia GRIT REMOVAL OPERATOR NOTES: Exam is limited due to patient's breathing and movement. *Elevated velocities with in left ICA. Unable to visualize right vertebral artery. Plaque noted within right bulb. Intimal thickening is evident. IMPRESSION: 1. Elevated left internal carotid artery velocity with stenosis between 50 and 69%. 2. Nonvisualization of the right vertebral artery. Criteria for Assigning % of Stenosis / Diameter reduction (Estimation based on the indirect measurements of the internal carotid artery velocities (ICA PSV). 1. Normal (no stenosis)=ICA PSV < 125 cm/s: ratio < 2.0: ICA EDV<40 cm/s. 2. Less than 50% stenosis=ICA PSV < 125 cm/s: ratio < 2.0: ICA EDV<40 cm/s. 3. 50 to 69% stenosis=ICA PSV of 125 to 230 cm/s: ration 2.0 ? 4.0: ICA EDV 40-100 cm/s. 4. Greater than 70% stenosis to near occlusion= ICA PSV > 230 cm/s: ratio > 4.0: ICA EDV > 100 cm/s. 5. Near occlusion= ICA PSV velocities may be low or undetectable: variable ratio and ICA EDV. 6. Total occlusion=unable to detect flow.
[2023-03-17] MEDS: PANTOPRAZOLE 40 MG TABLET PO SCH (18:59)
[2023-03-17] MEDS: ASPIRIN 81 MG PO SCH (18:59)
--- NOTE | 2023-03-17 21:47 | HP ---
HISTORY AND PHYSICAL CHIEF COMPLAINT: Weakness and fall. HISTORY OF PRESENT ILLNESS: This is an 87-year-old with a past medical history of atrial fibrillation, multiple other medical problems, was feeling weak and the patient apparently had a fall also. The patient with little hypotension. The patient came to [facility]. CT scan showed subcortical infarct in the left centrum semiovale. Otherwise, the patient also had multiple lab abnormalities including elevated WBC and elevated lactic acid indicating possible sepsis. Stool OB was also positive. Hemoglobin was found to be 9.5 and the troponin is only 0.152. NT-proBNP is also elevated. There is no history of any fever, rigors. or chills. PAST MEDICAL HISTORY: History of atrial fibrillation, history of GERD, rest of the history and rest of the chart is also reviewed. HOME MEDICATIONS: Reviewed include Lipitor, dose and rest of medications reviewed. ALLERGIES: None. FAMILY HISTORY: History of coronary artery disease. SOCIAL HISTORY: Previous history of smoking. REVIEW OF SYSTEMS: A 14-point review is negative except as mentioned earlier. PHYSICAL EXAMINATION: VITAL SIGNS: Pulse is 74, blood pressure 85/76, respirations 18. HEENT: Conjunctivae normal. NECK: No jugular venous distention. RESPIRATIONS: Diminished at the bases, scattered rhonchi. ABDOMEN: Soft, obese. LEGS: Left leg swelling as well as some hematoma also present. SKIN: As mentioned. JOINTS: No active deforming arthropathy. NERVOUS SYSTEM: Diffusely weak. LABORATORY DATA: WBC 13.6 labs reviewed. Ultrasound of the legs is negative for DVT. ASSESSMENT: 1. Fall and weakness, rule out sepsis. 2. Increased WBC. 3. Anemia. 4. Relative hypotension. 5. Elevated creatinine with acute renal failure with acute tubular necrosis. 6. Troponin 0.152, rule out acute myocardial infarction. 7. History of atrial fibrillation. 8. Gastroesophageal reflux disease. 9. Rule out CHF. 10.Hypertension. 11.Hyperlipidemia. 12.History of DJD. 13.Left centrum semiovale subcortical hypodensity. RECOMMENDATIONS AND DISCUSSION: This 87-year-old woman presented with multiple complex medical issues. I have recommended to continue the current medications, continue symptomatic treatment. containing. Otherwise reviewed the chest x-ray, showed some increased vascular markings. Recommended 2D echo with Doppler. Empiric antibiotics cultures, infectious Disease evaluation, PT OT evaluation, possible ECF rehab. Home medications will be continued once they are confirmed. Overall prognosis is extremely guarded. Further recommendations to follow. See orders for details. MMODL / IJN: [id number] /
[2023-03-17] MEDS ORDERED: SODIUM CHLORIDE 0.9% 1,000 ML IV ONE (23:00)
[2023-03-17 23:08] LABS: Glucose,Whole Blood 107 mg/dL (70-110)
[2023-03-18 00:56] LABS: Glucose,Whole Blood 99 mg/dL (70-110)
[2023-03-18] MEDS ORDERED: SODIUM CHLORIDE 0.9% 500 ML 500 ML IV ONE (01:01)
[2023-03-18] MEDS ORDERED: SODIUM CHLORIDE 0.9% 1,000 ML IV ONE (01:30)
[2023-03-18] MEDS: LATANOPROST 0.005% OPHTH DROPS 2.5 ML BTL BOTH EYES SCH ×2 (01:30→20:26)
[2023-03-18] MEDS: DORZOLAMIDE-TIMOLOL 2.23%/0.68 10ML BTL BOTH EYES SCH ×3 (01:30→20:26)
[2023-03-18] MEDS: SODIUM CHLORIDE 0.9% 1,000 ML IV SCH ×4 (01:32→20:26)
[2023-03-18 03:29] LABS: Amorphous Sediment,Urine Few /hpf; Appearance,Urine Cloudy (Clear); Bacteria,Urine Few /hpf; Bilirubin,Urine Negative (Negative); Blood,Urine Small (Negative); Color,Urine Yellow; Glucose,Urine (UA) Negative (Negative); Hyaline Casts,Urine 454 /lpf (0-2); Ketones,Urine Negative (Negative); Leukocyte Esterase,Urine Negative (Negative); Mucus,Urine Moderate /hpf; Nitrite,Urine Negative (Negative); Protein,Urine 1+ (Negative); RBC,Urine 8 /hpf (0-5); Specific Gravity,Urine 1.021 (1.001-1.035); Squamous Epithelial Cell,Urine 2 /hpf (0-4); Urobilinogen,Urine <2.0 mg/dL (<2.0); WBC,Urine 37 /hpf (0-5)
--- NOTE | 2023-03-18 07:37 | XR ---
EXAMINATION TYPE: XR chest 1V portable DATE OF EXAM: 03/18/2023 COMPARISON: 03/17/2023 INDICATION: CHF TECHNIQUE: Single frontal view of the chest is obtained. FINDINGS: The heart size is enlarged. Pacemaker overlies left chest. The pulmonary vasculature is normal. The lungs are clear. IMPRESSION: 1. Cardiomegaly.
[2023-03-18] MEDS: allopurinoL 100 MG TAB PO SCH ×2 (08:49→13:40)
[2023-03-18] MEDS: MAGNESIUM OXIDE 400 MG TAB PO SCH (08:49)
[2023-03-18] MEDS: PANTOPRAZOLE 40 MG TABLET PO SCH ×2 (08:49→17:16)
[2023-03-18] MEDS: BACLOFEN 10 MG TAB PO SCH ×2 (08:49→13:40)
--- NOTE | 2023-03-18 10:02 | P.CRDCN ---
History of Present Illness Consult date: 03/18/23 Chief complaint: Generalized weakness History of present illness: The patient is an 87-year-old female patient who was extremely poor historian w ith a past medical history significant for permanent ager atrial fibrillation and permanent pacemaker as well as multiple comorbid conditions. The patient was brought to the hospital because of generalized weakness and fatigue and falling as well. No specific symptoms of chest pain or chest discomfort and no shortness of breath according to her. Again the patient was extremely poor historian with change in mental status. We consulted to see the patient because of abnormal troponin which seems to be flat echo support but she does have renal failure. Her creatinine was 2.5 and her baseline is around 1. Lactic acid was elevated. Urinalysis showed what it seems to be a UTI. The EKG showed underlying atrial fibrillation was ventricular paced rhythm. An echo from previous showed normal LV systolic function was no significant valvular abnormalities. Clearly when the patient was seen and examined she doesn't look in any overt congestive heart failure as a matter of fact she seems to be more a dried. Her atrial fibrillation appeared to be under good control she is not on any oral antiplatelet agent likely because of history of high risk of falling and bleeding. The examination is remarkable for change in mental status and the patient seems to be dry with diminished breathing sounds bilaterally and no pitting edema was noted. Assessment Atrial fibrillation with controlled heart rate Permanent pacemaker Acute on chronic renal failure likely related to decreased oral intake /hypovolemia Multiple comorbid conditions Plan The patient is not in any overt congestive heart failure The patient is not in acute coronary syndrome Avoid any aggressive cardiac procedure at this point No need for any cardiac testing at this point Continue the current medical regimen Follow-up with the patient Past Medical History Past Medical History: Atrial Fibrillation, Cancer, GERD/Reflux, Hyperlipidemia, Hypertension, Osteoarthritis (OA), Syncope Additional Past Medical History / Comment(s): uterine cancer 14 yrs. ago, surg. & radiation, IGT,chronic dependent edema left leg-leg wrapped, VARICOSE VEINS, urinary incontinence, recent admission to [facility] for fall & syncope History of Any Multi-Drug Resistant Organisms: None Reported Past Surgical History: Bowel Resection, Hysterectomy, Tonsillectomy Additional Past Surgical History / Comment(s): lung surgery left thoracotomy negative for lung mass 2007?, SMALL VAGINAL MASS REMOVED, COLONOSCOPY,ELISEO CATARACT. Past Anesthesia/Blood Transfusion Reactions: No Reported Reaction Past Psychological History: No Psychological Hx Reported Smoking Status: Former smoker Past Alcohol Use History: Occasional Additional Past Alcohol Use History / Comment(s): SMOKED FOR 5 YEARS IN HER EARLY 30'S THEN QUIT Past Drug Use History: None Reported - Past Family History Father Family Medical History: Coronary Artery Disease (CAD) Mother Family Medical History: Coronary Artery Disease (CAD) Brother(s) Family Medical History: Cancer Son(s) Family Medical History: Respiratory Disorder Medications and Allergies Home Medications Medication Instructions Recorded Confirmed Type Aspirin 81 mg PO W/SUPPER 05/10/15 03/17/23 History Atorvastatin Calcium [Lipitor] 10 mg PO W/SUPPER 05/10/15 03/17/23 History Latanoprost Ophth [Xalatan 0.005%] 1 drop BOTH EYES HS 04/24/19 03/17/23 History Multivitamins, Thera [Multivitamin 1 tab PO W/LUNCH 04/24/19 03/17/23 History (formulary)] Apixaban [Eliquis] 2.5 mg PO BID-W/MEALS 03/18/22 03/17/23 History Calcium Carbonate 500 mg PO W/LUNCH 03/18/22 03/17/23 History Cholecalciferol (Vitamin D3) 125 mcg PO W/LUNCH 03/18/22 03/17/23 History [Vitamin D3 (125 MCG = 5,000 IU)] Dorzolamide-Timol 2.23%/0.68% 1 drop BOTH EYES BID 03/18/22 03/17/23 History [Cosopt] Losartan Potassium 100 mg PO W/BRKFST 03/18/22 03/17/23 History Melatonin 5 - 10 mg PO HS 03/18/22 03/17/23 History Pantoprazole [Protonix] 40 mg PO BID-W/MEALS 03/18/22 03/17/23 History Baclofen [Lioresal] 5 mg PO W/BRKFST 03/17/23 03/17/23 History Cetirizine HCl 10 mg PO W/BRKFST 03/17/23 03/17/23 History Ferrous Sulfate [Feosol] 325 mg PO DAILY 03/17/23 03/17/23 History Magnesium Oxide [Mag-Ox] 400 mg PO W/BRKFST 03/17/23 03/17/23 History Metoprolol Succinate (ER) [Toprol 50 mg PO W/BRKFST 03/17/23 03/17/23 History Xl] Sennosides [Senokot] 8.6 - 17.2 mg PO HS 03/17/23 03/17/23 History Torsemide [Demadex] 20 mg PO W/BRKFST 03/17/23 03/17/23 History allopurinoL [Zyloprim] 100 mg PO W/BRKFST 03/17/23 03/17/23 History Allergies Allergy/AdvReac Type Severity Reaction Status Date / Time No Known Allergies Allergy Verified 03/17/23 15:28 Physical Exam Vitals: Vital Signs Temp Pulse Pulse Resp BP BP BP 03/18/23 08:43 03/18/23 04:05 97.6 F 72 20 03/18/23 03:46 24 03/18/23 01:30 03/18/23 01:20 03/18/23 01:18 03/18/23 01:05 03/18/23 00:52 03/18/23 00:45 03/17/23 23:42 97.6 F 89 18 03/17/23 23:20 03/17/23 23:15 03/17/23 23:05 03/17/23 23:00 03/17/23 22:00 20 03/17/23 20:45 97.7 F 77 20 03/17/23 19:33 73 22 119/88 03/17/23 18:57 69 18 118/88 03/17/23 15:54 109/82 119/80 03/17/23 10:54 97.4 F L 74 18 85/47 BP Pulse Ox 03/18/23 08:43 95 03/18/23 04:05 105/69 99 03/18/23 03:46 03/18/23 01:30 101/59 03/18/23 01:20 104/54 03/18/23 01:18 104/60 03/18/23 01:05 104/54 03/18/23 00:52 83/56 03/18/23 00:45 74/48 03/17/23 23:42 92/67 98 03/17/23 23:20 75/53 03/17/23 23:15 94/51 03/17/23 23:05 88/62 03/17/23 23:00 79/55 03/17/23 22:00 03/17/23 20:45 98/66 92 L 03/17/23 19:33 95 03/17/23 18:57 97 03/17/23 15:54 118/76 03/17/23 10:54 97 Intake and Output 03/17/23 03/18/23 03/18/23 22:59 06:59 14:59 Intake Total 10 Output Total 50 Balance 10 -50 Intake: IV 10 Invasive Line 2 10 Output: Urine 50 Other: Voiding Method External Catheter External Catheter # Voids 1 # Bowel Movements 2 Weight 48 kg 63 kg Results 03/17/23 11:54 03/17/23 13:13 Cardiac Enzymes 03/17/23 03/17/23 03/17/23 Range/Units 13:13 13:13 15:50 AST 74 H (14-36) U/L Troponin I 0.152 H* 0.157 H* (0.000-0.034) ng/mL 03/17/23 Range/Units 19:19 AST (14-36) U/L Troponin I 0.253 H* (0.000-0.034) ng/mL Coagulation 03/17/23 Range/Units 13:13 PT 13.2 H (10.0-12.5) sec APTT 29.3 (22.0-30.0) sec CBC 03/17/23 Range/Units 11:54 WBC 13.3 H (3.8-10.6) k/uL RBC 2.72 L (3.80-5.40) m/uL Hgb 9.5 L (11.4-16.0) gm/dL Hct 29.1 L (34.0-46.0) % Plt Count 177 (150-450) k/uL Comprehensive Metabolic Panel 03/17/23 Range/Units 13:13 Sodium 138 (137-145) mmol/L Potassium 4.5 (3.5-5.1) mmol/L Chloride 99 (98-107) mmol/L Carbon Dioxide 17 L (22-30) mmol/L BUN 58 H (7-17) mg/dL Creatinine 2.51 H (0.52-1.04) mg/dL Glucose 124 H (74-99) mg/dL Calcium 8.8 (8.4-10.2) mg/dL AST 74 H (14-36) U/L ALT 29 (4-34) U/L Alkaline Phosphatase 71 (38-126) U/L Total Protein 5.9 L (6.3-8.2) g/dL Albumin 3.5 (3.5-5.0) g/dL Current Medications Generic Name Dose Route Start Last Admin Trade Name Freq PRN Reason Stop Dose Admin Allopurinol 100 mg 03/18/23 07:30 03/18/23 08:49 Allopurinol 100 Mg Tab PO Not Given W/[facility] Aspirin 81 mg 03/17/23 17:30 03/17/23 18:59 Aspirin 81 Mg PO 81 mg W/SUPPER MARIANO Administration Baclofen 5 mg 03/18/23 07:30 03/18/23 08:49 Baclofen 10 Mg Tab PO Not Given W/[facility] Calcium Carbonate/Glycine 500 mg 03/18/23 12:30 Calcium Carbonate 500 Mg Chewable PO W/LUNCH [facility] Cholecalciferol 125 mcg 03/18/23 12:30 Cholecalciferol 125 Mcg (5000 Iu) Tablet PO W/LUNCH [facility] Dorzolamide/Timolol 1 drops 03/17/23 21:00 03/18/23 01:30 Dorzolamide-Timolol 2.23%/0.68 10ml Btl BOTH EYES Not Given BID MARIANO Sodium Chloride 1,000 mls @ 125 mls/hr 03/18/23 01:30 03/18/23 01:32 Saline 0.9% IV 125 mls/hr .Q8H MARIANO Administration Ceftriaxone Sodium 2 gm/ 50 mls @ 100 mls/hr 03/18/23 09:00 03/18/23 08:51 Sodium Chloride IVPB 100 mls/hr Q24HR MARIANO Administration Protocol Latanoprost 1 drops 03/17/23 21:00 03/18/23 01:30 Latanoprost 0.005% Ophth Drops 2.5 Ml Btl BOTH EYES Not Given HS MARIANO Magnesium Oxide 400 mg 03/18/23 07:30 03/18/23 08:49 Magnesium Oxide 400 Mg Tab PO Not Given W/[facility] Multivitamins 1 each 03/18/23 12:30 Multivitamins, Thera 1 Each Tab PO W/LUNCH MARIANO Naloxone HCl 0.2 mg 03/17/23 15:08 Naloxone 0.4 Mg/Ml 1 Ml Vial IV Q2M PRN Opioid Reversal Pantoprazole Sodium 40 mg 03/17/23 17:30 03/18/23 08:49 Pantoprazole 40 Mg Tablet PO Not Given BID-W/MEALS MARIANO Intake and Output 03/17/23 03/18/23 03/18/23 22:59 06:59 14:59 Intake Total 10 Output Total 50 Balance 10 -50 Intake: IV 10 Invasive Line 2 10 Output: Urine 50 Other: Voiding Method External Catheter External Catheter # Voids 1 # Bowel Movements 2 Weight 48 kg 63 kg 03/17/23 11:54 03/17/23 13:13
--- NOTE | 2023-03-18 11:17 | P.NPCON ---
History of Present Illness - Reason for Consult acute renal failure - History of Present Illness Patient is an 87-year-old female with history of chronic A. fib, hypertension, hyperlipidemia and remote history of uterine cancer. Patient is admitted to the hospital with a history of fall. 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 History is taken from chart review patient is not able to provide any significant history. No history of syncope documented. Blood pressure was low with systolic in the 70s Serum creatinine at 2.5 mg/dL. Previous creatinine 1.0 on 03/31/2022. Lactic acid is elevated. Maintained on losartan and torsemide prior to admission. Currently on hold. Patient has an indwelling Osei catheter. Currently maintained on IV fluids. UA suggestive of possible UTI. Review of Systems As per HPI Past Medical History Past Medical History: Atrial Fibrillation, Cancer, GERD/Reflux, Hyperlipidemia, Hypertension, Osteoarthritis (OA), Syncope Additional Past Medical History / Comment(s): uterine cancer 14 yrs. ago, surg. & radiation, IGT,chronic dependent edema left leg-leg wrapped, VARICOSE VEINS, urinary incontinence, recent admission to [facility] for fall & syncope History of Any Multi-Drug Resistant Organisms: None Reported Past Surgical History: Bowel Resection, Hysterectomy, Tonsillectomy Additional Past Surgical History / Comment(s): lung surgery left thoracotomy negative for lung mass 2007?, SMALL VAGINAL MASS REMOVED, COLONOSCOPY,ELISEO CATARACT. Past Anesthesia/Blood Transfusion Reactions: No Reported Reaction Past Psychological History: No Psychological Hx Reported Smoking Status: Former smoker Past Alcohol Use History: Occasional Additional Past Alcohol Use History / Comment(s): SMOKED FOR 5 YEARS IN HER EARLY 30'S THEN QUIT Past Drug Use History: None Reported - Past Family History Father Family Medical History: Coronary Artery Disease (CAD) Mother Family Medical History: Coronary Artery Disease (CAD) Brother(s) Family Medical History: Cancer Son(s) Family Medical History: Respiratory Disorder Medications and Allergies Home Medications Medication Instructions Recorded Confirmed Type Aspirin 81 mg PO W/SUPPER 05/10/15 03/17/23 History Atorvastatin Calcium [Lipitor] 10 mg PO W/SUPPER 05/10/15 03/17/23 History Latanoprost Ophth [Xalatan 0.005%] 1 drop BOTH EYES HS 04/24/19 03/17/23 History Multivitamins, Thera [Multivitamin 1 tab PO W/LUNCH 04/24/19 03/17/23 History (formulary)] Apixaban [Eliquis] 2.5 mg PO BID-W/MEALS 03/18/22 03/17/23 History Calcium Carbonate 500 mg PO W/LUNCH 03/18/22 03/17/23 History Cholecalciferol (Vitamin D3) 125 mcg PO W/LUNCH 03/18/22 03/17/23 History [Vitamin D3 (125 MCG = 5,000 IU)] Dorzolamide-Timol 2.23%/0.68% 1 drop BOTH EYES BID 03/18/22 03/17/23 History [Cosopt] Losartan Potassium 100 mg PO W/BRKFST 03/18/22 03/17/23 History Melatonin 5 - 10 mg PO HS 03/18/22 03/17/23 History Pantoprazole [Protonix] 40 mg PO BID-W/MEALS 03/18/22 03/17/23 History Baclofen [Lioresal] 5 mg PO W/BRKFST 03/17/23 03/17/23 History Cetirizine HCl 10 mg PO W/BRKFST 03/17/23 03/17/23 History Ferrous Sulfate [Feosol] 325 mg PO DAILY 03/17/23 03/17/23 History Magnesium Oxide [Mag-Ox] 400 mg PO W/BRKFST 03/17/23 03/17/23 History Metoprolol Succinate (ER) [Toprol 50 mg PO W/BRKFST 03/17/23 03/17/23 History Xl] Sennosides [Senokot] 8.6 - 17.2 mg PO HS 03/17/23 03/17/23 History Torsemide [Demadex] 20 mg PO W/BRKFST 03/17/23 03/17/23 History allopurinoL [Zyloprim] 100 mg PO W/BRKFST 03/17/23 03/17/23 History Allergies Allergy/AdvReac Type Severity Reaction Status Date / Time No Known Allergies Allergy Verified 03/17/23 15:28 Physical Exam Vitals: Vital Signs Temp Pulse Pulse Resp BP BP BP 03/18/23 08:43 03/18/23 08:00 97.5 F L 69 03/18/23 04:05 97.6 F 72 20 03/18/23 03:46 24 03/18/23 01:30 03/18/23 01:20 03/18/23 01:18 03/18/23 01:05 03/18/23 00:52 03/18/23 00:45 03/17/23 23:42 97.6 F 89 18 03/17/23 23:20 03/17/23 23:15 03/17/23 23:05 03/17/23 23:00 03/17/23 22:00 20 03/17/23 20:45 97.7 F 77 20 03/17/23 19:33 73 22 119/88 03/17/23 18:57 69 18 118/88 03/17/23 15:54 109/82 119/80 BP Pulse Ox 03/18/23 08:43 95 03/18/23 08:00 102/55 95 03/18/23 04:05 105/69 99 03/18/23 03:46 03/18/23 01:30 101/59 03/18/23 01:20 104/54 03/18/23 01:18 104/60 03/18/23 01:05 104/54 03/18/23 00:52 83/56 03/18/23 00:45 74/48 03/17/23 23:42 92/67 98 03/17/23 23:20 75/53 03/17/23 23:15 94/51 03/17/23 23:05 88/62 03/17/23 23:00 79/55 03/17/23 22:00 03/17/23 20:45 98/66 92 L 03/17/23 19:33 95 03/17/23 18:57 97 03/17/23 15:54 118/76 Intake and Output 03/17/23 03/18/23 03/18/23 22:59 06:59 14:59 Intake Total 10 Output Total 50 Balance 10 -50 Intake: IV 10 Invasive Line 2 10 Output: Urine 50 Other: Voiding Method External Catheter External Catheter Indwelling Catheter # Voids 1 # Bowel Movements 2 Weight 48 kg 63 kg Patient is awake, comfortable, no acute distress She answers questions but is unable to give a detailed history. 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 Results - Lab Results Most recent lab results Calcium 8.8 mg/dL (8.4-10.2) 03/17/23 13:13 Magnesium 1.9 mg/dL (1.6-2.3) 03/17/23 13:13 03/17/23 11:54 03/17/23 13:13 Assessment and Plan Assessment: 1. Acute kidney injury, ATN nonoliguric secondary to hypotension and underlying infection. Also element of hypovolemia noted. Diuretics and angiotensin receptor blockers currently on hold. Patient is maintained on IV fluids 2. Pyuria rule out UTI 3. Lactic acidosis secondary to hypotension 4. Positive stool for occult blood 5. Remote history of uterine cancer. Plan: Continue IV fluids Check ultrasound of the kidneys Accurate I's and O's Continue to hold off on angiotensin receptor blockers and diuretics. Repeat labs in a.m. Repeat lactic acid next Thank you for the consultation. We will continue to follow the patient with you during her hospitalization.
[2023-03-18 11:40] LABS: ALT 241 U/L (4-34); AST 462 U/L (14-36); Albumin 2.8 g/dL (3.5-5.0); Alkaline Phosphatase 88 U/L (38-126); Anion Gap 18 mmol/L; Blood Urea Nitrogen 67 mg/dL (7-17); Calcium 7.1 mg/dL (8.4-10.2); Carbon Dioxide 14 mmol/L (22-30); Chloride 107 mmol/L (98-107); Glucose 78 mg/dL (74-99); Potassium 4.5 mmol/L (3.5-5.1); Sodium 139 mmol/L (137-145); Total Bilirubin 0.9 mg/dL (0.2-1.3); Total Protein 5.2 g/dL (6.3-8.2)
[2023-03-18 11:46] LABS: African American GFR (CKD) 15 (>60 ml/min/1.73 sqM); Non-African American GFR(CKD) 13 (>60 ml/min/1.73 sqM)
[2023-03-18 11:55] LABS: Anisocytosis Slight; HCT 30.3 % (34.0-46.0); HGB 9.2 gm/dL (11.4-16.0); Hypochromasia Marked; MCH 34.3 pg (25.0-35.0); MCHC 30.4 g/dL (31.0-37.0); Macrocytosis Marked; Mean Platelet Volume 9.9; Platelet Count 124 k/uL (150-450); RBC 2.69 m/uL (3.80-5.40); RDW 17.5 % (11.5-15.5); WBC 8.5 k/uL (3.8-10.6)
[2023-03-18 12:00] LABS: MCV 112.7 fL (80.0-100.0)
--- NOTE | 2023-03-18 12:20 | P.PN ---
Subjective Progress Note Date: 03/18/23 She is somnolent and slow to arose with family at bedside. No reports of abdominal pain. She had breakfast. No hemoptysis. Hgb stable. 9.2 to 9.5. No signs or bleeding today. Monitor Hgb. May benefit for endoscopy pending any further signs of bleeding or decline in Hgb. Objective - Vital Signs Vital signs: Vital Signs Temp 97.9 F 03/18/23 11:37 Pulse 62 03/18/23 11:37 Resp 20 03/18/23 11:37 BP 114/75 03/18/23 11:37 Pulse Ox 98 03/18/23 11:37 FiO2 Intake & Output 03/17/23 03/18/23 03/18/23 18:59 06:59 18:59 Intake Total 10 Output Total 50 Balance 10 -50 Weight 48 kg 63 kg Intake: IV 10 Invasive Line 2 10 Output: Urine 50 Other: Voiding Method External Catheter Indwelling Catheter # Voids 1 # Bowel Movements 2 - Labs CBC & Chem 7: 03/18/23 10:34 03/18/23 10:34 Labs: Abnormal Lab Results - Last 24 Hours (Table) 03/17/23 03/17/23 03/17/23 Range/Units 11:54 11:54 13:13 WBC 13.3 H (3.8-10.6) k/uL RBC 2.72 L (3.80-5.40) m/uL Hgb 9.5 L (11.4-16.0) gm/dL Hct 29.1 L (34.0-46.0) % MCV 107.2 H (80.0-100.0) fL MCH 35.1 H (25.0-35.0) pg MCHC (31.0-37.0) g/dL RDW 17.4 H (11.5-15.5) % Plt Count (150-450) k/uL Neutrophils # (Manual) 12.10 H (1.3-7.7) k/uL Lymphocytes # (Manual) 0.13 L (1.0-4.8) k/uL Metamyelocytes # (Man) 0.53 H (0) k/uL Myelocytes # (Manual) 0.13 H (0) k/uL Macrocytosis Marked A PT 13.2 H (10.0-12.5) sec INR 1.3 H (<1.2) Carbon Dioxide (22-30) mmol/L BUN (7-17) mg/dL Creatinine (0.52-1.04) mg/dL Glucose (74-99) mg/dL Plasma Lactic Acid Edu 6.7 H* (0.7-2.0) mmol/L Calcium (8.4-10.2) mg/dL AST (14-36) U/L ALT (4-34) U/L Troponin I (0.000-0.034) ng/mL Total Protein (6.3-8.2) g/dL Albumin (3.5-5.0) g/dL Urine Appearance (Clear) Urine Protein (Negative) Urine Blood (Negative) Urine RBC (0-5) /hpf Urine WBC (0-5) /hpf Amorphous Sediment (None) /hpf Urine Bacteria (None) /hpf Hyaline Casts (0-2) /lpf Urine Mucus (None) /hpf Stool Occult Blood (Negative) 03/17/23 03/17/23 03/17/23 Range/Units 13:13 13:13 13:20 WBC (3.8-10.6) k/uL RBC (3.80-5.40) m/uL Hgb (11.4-16.0) gm/dL Hct (34.0-46.0) % MCV (80.0-100.0) fL MCH (25.0-35.0) pg MCHC (31.0-37.0) g/dL RDW (11.5-15.5) % Plt Count (150-450) k/uL Neutrophils # (Manual) (1.3-7.7) k/uL Lymphocytes # (Manual) (1.0-4.8) k/uL Metamyelocytes # (Man) (0) k/uL Myelocytes # (Manual) (0) k/uL Macrocytosis PT (10.0-12.5) sec INR (<1.2) Carbon Dioxide 17 L (22-30) mmol/L BUN 58 H (7-17) mg/dL Creatinine 2.51 H (0.52-1.04) mg/dL Glucose 124 H (74-99) mg/dL Plasma Lactic Acid Edu (0.7-2.0) mmol/L Calcium (8.4-10.2) mg/dL AST 74 H (14-36) U/L ALT (4-34) U/L Troponin I 0.152 H* (0.000-0.034) ng/mL Total Protein 5.9 L (6.3-8.2) g/dL Albumin (3.5-5.0) g/dL Urine Appearance (Clear) Urine Protein (Negative) Urine Blood (Negative) Urine RBC (0-5) /hpf Urine WBC (0-5) /hpf Amorphous Sediment (None) /hpf Urine Bacteria (None) /hpf Hyaline Casts (0-2) /lpf Urine Mucus (None) /hpf Stool Occult Blood Positive H (Negative) 03/17/23 03/17/23 03/17/23 Range/Units 15:50 15:50 19:19 WBC (3.8-10.6) k/uL RBC (3.80-5.40) m/uL Hgb (11.4-16.0) gm/dL Hct (34.0-46.0) % MCV (80.0-100.0) fL MCH (25.0-35.0) pg MCHC (31.0-37.0) g/dL RDW (11.5-15.5) % Plt Count (150-450) k/uL Neutrophils # (Manual) (1.3-7.7) k/uL Lymphocytes # (Manual) (1.0-4.8) k/uL Metamyelocytes # (Man) (0) k/uL Myelocytes # (Manual) (0) k/uL Macrocytosis PT (10.0-12.5) sec INR (<1.2) Carbon Dioxide (22-30) mmol/L BUN (7-17) mg/dL Creatinine (0.52-1.04) mg/dL Glucose (74-99) mg/dL Plasma Lactic Acid Edu 4.3 H* (0.7-2.0) mmol/L Calcium (8.4-10.2) mg/dL AST (14-36) U/L ALT (4-34) U/L Troponin I 0.157 H* 0.253 H* (0.000-0.034) ng/mL Total Protein (6.3-8.2) g/dL Albumin (3.5-5.0) g/dL Urine Appearance (Clear) Urine Protein (Negative) Urine Blood (Negative) Urine RBC (0-5) /hpf Urine WBC (0-5) /hpf Amorphous Sediment (None) /hpf Urine Bacteria (None) /hpf Hyaline Casts (0-2) /lpf Urine Mucus (None) /hpf Stool Occult Blood (Negative) 03/17/23 03/17/23 03/18/23 Range/Units 19:19 22:26 02:00 WBC (3.8-10.6) k/uL RBC (3.80-5.40) m/uL Hgb (11.4-16.0) gm/dL Hct (34.0-46.0) % MCV (80.0-100.0) fL MCH (25.0-35.0) pg MCHC (31.0-37.0) g/dL RDW (11.5-15.5) % Plt Count (150-450) k/uL Neutrophils # (Manual) (1.3-7.7) k/uL Lymphocytes # (Manual) (1.0-4.8) k/uL Metamyelocytes # (Man) (0) k/uL Myelocytes # (Manual) (0) k/uL Macrocytosis PT (10.0-12.5) sec INR (<1.2) Carbon Dioxide (22-30) mmol/L BUN (7-17) mg/dL Creatinine (0.52-1.04) mg/dL Glucose (74-99) mg/dL Plasma Lactic Acid Edu 5.5 H* 4.4 H* (0.7-2.0) mmol/L Calcium (8.4-10.2) mg/dL AST (14-36) U/L ALT (4-34) U/L Troponin I (0.000-0.034) ng/mL Total Protein (6.3-8.2) g/dL Albumin (3.5-5.0) g/dL Urine Appearance Cloudy H (Clear) Urine Protein 1+ H (Negative) Urine Blood Small H (Negative) Urine RBC 8 H (0-5) /hpf Urine WBC 37 H (0-5) /hpf Amorphous Sediment Few H (None) /hpf Urine Bacteria Few H (None) /hpf Hyaline Casts 454 H (0-2) /lpf Urine Mucus Moderate H (None) /hpf Stool Occult Blood (Negative) 03/18/23 03/18/23 03/18/23 Range/Units 10:34 10:34 10:34 WBC (3.8-10.6) k/uL RBC 2.69 L (3.80-5.40) m/uL Hgb 9.2 L (11.4-16.0) gm/dL Hct 30.3 L (34.0-46.0) % MCV 112.7 H D (80.0-100.0) fL MCH (25.0-35.0) pg MCHC 30.4 L (31.0-37.0) g/dL RDW 17.5 H (11.5-15.5) % Plt Count 124 L (150-450) k/uL Neutrophils # (Manual) (1.3-7.7) k/uL Lymphocytes # (Manual) (1.0-4.8) k/uL Metamyelocytes # (Man) (0) k/uL Myelocytes # (Manual) (0) k/uL Macrocytosis Marked A PT (10.0-12.5) sec INR (<1.2) Carbon Dioxide 14 L (22-30) mmol/L BUN 67 H (7-17) mg/dL Creatinine 3.00 H (0.52-1.04) mg/dL Glucose (74-99) mg/dL Plasma Lactic Acid Edu 2.5 H* (0.7-2.0) mmol/L Calcium 7.1 L (8.4-10.2) mg/dL AST 462 H (14-36) U/L ALT 241 H (4-34) U/L Troponin I (0.000-0.034) ng/mL Total Protein 5.2 L (6.3-8.2) g/dL Albumin 2.8 L (3.5-5.0) g/dL Urine Appearance (Clear) Urine Protein (Negative) Urine Blood (Negative) Urine RBC (0-5) /hpf Urine WBC (0-5) /hpf Amorphous Sediment (None) /hpf Urine Bacteria (None) /hpf Hyaline Casts (0-2) /lpf Urine Mucus (None) /hpf Stool Occult Blood (Negative) Microbiology - Last 24 Hours (Table) 03/17/23 16:00 Blood Culture Gram Stain - Preliminary Blood
[2023-03-18] MEDS: CALCIUM CARBONATE 500 MG CHEWABLE PO SCH (12:31)
[2023-03-18] MEDS: CHOLECALCIFEROL 125 MCG (5000 IU) TABLET PO SCH (12:31)
[2023-03-18] MEDS: MULTIVITAMINS, THERA 1 EACH TAB PO SCH (12:31)
[2023-03-18 13:27] LABS: Band Neutrophils % 31 %; Lymphocytes # (M) 0.43 k/uL (1.0-4.8); Metamyelocytes # (M) 0.17 k/uL (0); Metamyelocytes % 2 %; Monocytes # (M) 0.26 k/uL (0-1.0); Neutrophils % (M) 60 %; Nucleated Red Blood Cells 0 /100 WBC (0-0); Total Cells Counted 200; Toxic Vacuolation Present
[2023-03-18] MEDS: ASPIRIN 81 MG PO SCH (17:16)
--- NOTE | 2023-03-19 05:13 | PN ---
PROGRESS NOTE DATE OF SERVICE: 03/18/2023 SUBJECTIVE: This is an 87-year-old woman, who was admitted with fall and weakness, is being evaluated to rule out sepsis. The patient continues to be stuporous. A brain CAT scan, which I reviewed personally showed subcortical hypodensity with left centrum ovale stroke. Carotid Doppler showed left internal carotid artery stenosis. The most recent chest x-ray, which was reviewed personally by me showed some increased bronchovascular markings. PAST MEDICAL HISTORY: Reviewed. REVIEW OF SYSTEMS: Could not be taken. CURRENT MEDICATIONS: Reviewed include aspirin. Rest of the medications noted. PHYSICAL EXAMINATION: VITAL SIGNS: Pulse is 69, blood pressure n, and respirations 20. HEENT: Conjunctivae normal. NECK: No jugular venous distention. RESPIRATIONS: Diminished at the bases, scattered rhonchi. ABDOMEN: Soft. NERVOUS SYSTEM: Nonfocal. LABORATORY DATA: n ASSESSMENT: 1. Fall and weakness, possibly sepsis with urinary tract infection. 2. Possible metabolic encephalopathy. 3. Possible acute left centrum semiovale subcortical hypodensity and stroke. 4. Increased WBC. 5. Anemia. 6. Relative hypotension. 7. Elevated creatinine with acute renal failure with acute tubular necrosis. 8. Troponin 0.152, rule out acute myocardial infarction. 9. History of atrial fibrillation. 10.Gastroesophageal reflux disease. 11.Rule out congestive heart failure. 12.Hypertension. 13.Hyperlipidemia. 14.No code. RECOMMENDATIONS: Recommend to continue current management and treatment, otherwise at this time, I recommend to continue with IV antibiotics. Infectious Disease evaluation, cultures, otherwise Neurology consultation, and Cardiology consultation appreciated. The blood pressure is slightly better. Overall prognosis is extremely guarded because of multiple complex medical issues. The patient is no code. See orders for details. MMODL / IJN: [id number] / MTDD
--- NOTE | 2023-03-19 07:43 | P.CONS ---
History of Present Illness - Reason for Consult Consult date: 03/18/23 Sepsis Requesting physician: Lexis Bonilla - Chief Complaint Weakness and fall x 1 day - History of Present Illness Patient is a 87-year-old female with a past medical history significant for hypertension hyperlipidemia osteoarthritis atrial fibrillation uterine cancer patient has been brought to the hospital yesterday afternoon for evaluation of weakness according to the grocery store associate the patient has been weak for the past 3 days and the patient was trying to ambulate in the kitchen when she felt her legs give out the patient did have back against the kitchen cabinet no loss of any consciousness patient has been brought into the hospital for further evaluation on presentation to the hospital the patient was afebrile and no fever has been recorded subsequently patient was not tachycardic or hypotensive did have mild hypoxemia O2 sats of 92% room air currently on 2 L nasal cannula oxygen patient did have iron of 13.3 with a left shift BUN/creatinine has been elevated lactic acid was elevated as well as elevated liver enzymes urine has been mildly positive patient blood cultures given positive Streptococcus agalactiae from previous infectious disease consultation patient did have a chest x-ray which shows cardiomegaly but no acute infiltrate venous Doppler of the left lower extremity was negative for DVT patient was started on Rocephin infectious disease was consulted for further management of antibiotic therapy, most information has been obtained from review the chart talking to the daughter at the patient was sleepy lethargic and could not provide any history Review of Systems Positive points has been mentioned in HPI complete review could not be obtained because of his underlying mental status Past Medical History Past Medical History: Atrial Fibrillation, Cancer, GERD/Reflux, Hyperlipidemia, Hypertension, Osteoarthritis (OA), Syncope Additional Past Medical History / Comment(s): uterine cancer 14 yrs. ago, surg. & radiation, IGT,chronic dependent edema left leg-leg wrapped, VARICOSE VEINS, urinary incontinence, recent admission to [facility] for fall & syncope History of Any Multi-Drug Resistant Organisms: None Reported Past Surgical History: Bowel Resection, Hysterectomy, Tonsillectomy Additional Past Surgical History / Comment(s): lung surgery left thoracotomy negative for lung mass 2007?, SMALL VAGINAL MASS REMOVED, COLONOSCOPY,ELISEO CATARACT. Past Anesthesia/Blood Transfusion Reactions: No Reported Reaction Past Psychological History: No Psychological Hx Reported Smoking Status: Former smoker Past Alcohol Use History: Occasional Additional Past Alcohol Use History / Comment(s): SMOKED FOR 5 YEARS IN HER EARLY 30'S THEN QUIT Past Drug Use History: None Reported - Past Family History Father Family Medical History: Coronary Artery Disease (CAD) Mother Family Medical History: Coronary Artery Disease (CAD) Brother(s) Family Medical History: Cancer Son(s) Family Medical History: Respiratory Disorder Medications and Allergies Home Medications Medication Instructions Recorded Confirmed Type Aspirin 81 mg PO W/SUPPER 05/10/15 03/17/23 History Atorvastatin Calcium [Lipitor] 10 mg PO W/SUPPER 05/10/15 03/17/23 History Latanoprost Ophth [Xalatan 0.005%] 1 drop BOTH EYES HS 04/24/19 03/17/23 History Multivitamins, Thera [Multivitamin 1 tab PO W/LUNCH 04/24/19 03/17/23 History (formulary)] Apixaban [Eliquis] 2.5 mg PO BID-W/MEALS 03/18/22 03/17/23 History Calcium Carbonate 500 mg PO W/LUNCH 03/18/22 03/17/23 History Cholecalciferol (Vitamin D3) 125 mcg PO W/LUNCH 03/18/22 03/17/23 History [Vitamin D3 (125 MCG = 5,000 IU)] Dorzolamide-Timol 2.23%/0.68% 1 drop BOTH EYES BID 03/18/22 03/17/23 History [Cosopt] Losartan Potassium 100 mg PO W/BRKFST 03/18/22 03/17/23 History Melatonin 5 - 10 mg PO HS 03/18/22 03/17/23 History Pantoprazole [Protonix] 40 mg PO BID-W/MEALS 03/18/22 03/17/23 History Baclofen [Lioresal] 5 mg PO W/BRKFST 03/17/23 03/17/23 History Cetirizine HCl 10 mg PO W/BRKFST 03/17/23 03/17/23 History Ferrous Sulfate [Feosol] 325 mg PO DAILY 03/17/23 03/17/23 History Magnesium Oxide [Mag-Ox] 400 mg PO W/BRKFST 03/17/23 03/17/23 History Metoprolol Succinate (ER) [Toprol 50 mg PO W/BRKFST 03/17/23 03/17/23 History Xl] Sennosides [Senokot] 8.6 - 17.2 mg PO HS 03/17/23 03/17/23 History Torsemide [Demadex] 20 mg PO W/BRKFST 03/17/23 03/17/23 History allopurinoL [Zyloprim] 100 mg PO W/BRKFST 03/17/23 03/17/23 History Allergies Allergy/AdvReac Type Severity Reaction Status Date / Time No Known Allergies Allergy Verified 03/17/23 15:28 Physical Exam Vitals: Vital Signs Temp Pulse Pulse Resp BP BP BP 03/18/23 11:37 97.9 F 62 20 03/18/23 08:43 03/18/23 08:00 97.5 F L 69 20 03/18/23 04:05 97.6 F 72 20 03/18/23 03:46 24 03/18/23 01:30 03/18/23 01:20 03/18/23 01:18 03/18/23 01:05 03/18/23 00:52 03/18/23 00:45 03/17/23 23:42 97.6 F 89 18 03/17/23 23:20 03/17/23 23:15 03/17/23 23:05 03/17/23 23:00 03/17/23 22:00 20 03/17/23 20:45 97.7 F 77 20 03/17/23 19:33 73 22 119/88 03/17/23 18:57 69 18 118/88 03/17/23 15:54 109/82 119/80 BP BP Pulse Ox 03/18/23 11:37 114/75 98 03/18/23 08:43 95 03/18/23 08:00 102/55 95 03/18/23 04:05 105/69 99 03/18/23 03:46 03/18/23 01:30 101/59 03/18/23 01:20 104/54 03/18/23 01:18 104/60 03/18/23 01:05 104/54 03/18/23 00:52 83/56 03/18/23 00:45 74/48 03/17/23 23:42 92/67 98 03/17/23 23:20 75/53 03/17/23 23:15 94/51 03/17/23 23:05 88/62 03/17/23 23:00 79/55 03/17/23 22:00 03/17/23 20:45 98/66 92 L 03/17/23 19:33 95 03/17/23 18:57 97 03/17/23 15:54 118/76 Intake and Output 03/17/23 03/18/23 03/18/23 22:59 06:59 14:59 Intake Total 10 Output Total 50 Balance 10 -50 Intake: IV 10 Invasive Line 2 10 Output: Urine 50 Other: Voiding Method External Catheter External Catheter Indwelling Catheter # Voids 1 # Bowel Movements 2 Weight 48 kg 63 kg GENERAL DESCRIPTION: Elderly female lying in bed, no distress. No tachypnea or accessory muscle of respiration use. HEENT: Shows Pallor , no scleral icterus. Oral mucous membrane is dry. No pharyngeal erythema or thrush NECK: Trachea central, no thyromegaly. LUNGS: Unlabored breathing. Clear to auscultation anteriorly. No wheeze or crackle. HEART: S1, S2, regular rate and rhythm. No loud murmur ABDOMEN: Soft, no tenderness , guarding or rigidity, no organomegaly EXTREMITIES: Diffuse swelling and redness to the left lower extremity which is warm to touch SKIN: No rash, no masses palpable. NEUROLOGICAL: The patient is sleepy lethargic orientation could not determine Results CBC & Chem 7: 03/18/23 10:34 03/18/23 10:34 Labs: Abnormal Lab Results - Last 24 Hours (Table) 03/17/23 03/17/23 03/17/23 Range/Units 11:54 13:13 13:13 RBC (3.80-5.40) m/uL Hgb (11.4-16.0) gm/dL Hct (34.0-46.0) % MCV (80.0-100.0) fL MCHC (31.0-37.0) g/dL RDW (11.5-15.5) % Plt Count (150-450) k/uL Neutrophils # (Manual) 12.10 H (1.3-7.7) k/uL Lymphocytes # (Manual) 0.13 L (1.0-4.8) k/uL Metamyelocytes # (Man) 0.53 H (0) k/uL Myelocytes # (Manual) 0.13 H (0) k/uL Macrocytosis PT 13.2 H (10.0-12.5) sec INR 1.3 H (<1.2) Carbon Dioxide (22-30) mmol/L BUN (7-17) mg/dL Creatinine (0.52-1.04) mg/dL Glucose (74-99) mg/dL Plasma Lactic Acid Edu (0.7-2.0) mmol/L Calcium (8.4-10.2) mg/dL AST (14-36) U/L ALT (4-34) U/L Troponin I 0.152 H* (0.000-0.034) ng/mL Total Protein (6.3-8.2) g/dL Albumin (3.5-5.0) g/dL Urine Appearance (Clear) Urine Protein (Negative) Urine Blood (Negative) Urine RBC (0-5) /hpf Urine WBC (0-5) /hpf Amorphous Sediment (None) /hpf Urine Bacteria (None) /hpf Hyaline Casts (0-2) /lpf Urine Mucus (None) /hpf Stool Occult Blood (Negative) 03/17/23 03/17/23 03/17/23 Range/Units 13:13 13:20 15:50 RBC (3.80-5.40) m/uL Hgb (11.4-16.0) gm/dL Hct (34.0-46.0) % MCV (80.0-100.0) fL MCHC (31.0-37.0) g/dL RDW (11.5-15.5) % Plt Count (150-450) k/uL Neutrophils # (Manual) (1.3-7.7) k/uL Lymphocytes # (Manual) (1.0-4.8) k/uL Metamyelocytes # (Man) (0) k/uL Myelocytes # (Manual) (0) k/uL Macrocytosis PT (10.0-12.5) sec INR (<1.2) Carbon Dioxide 17 L (22-30) mmol/L BUN 58 H (7-17) mg/dL Creatinine 2.51 H (0.52-1.04) mg/dL Glucose 124 H (74-99) mg/dL Plasma Lactic Acid Edu 4.3 H* (0.7-2.0) mmol/L Calcium (8.4-10.2) mg/dL AST 74 H (14-36) U/L ALT (4-34) U/L Troponin I (0.000-0.034) ng/mL Total Protein 5.9 L (6.3-8.2) g/dL Albumin (3.5-5.0) g/dL Urine Appearance (Clear) Urine Protein (Negative) Urine Blood (Negative) Urine RBC (0-5) /hpf Urine WBC (0-5) /hpf Amorphous Sediment (None) /hpf Urine Bacteria (None) /hpf Hyaline Casts (0-2) /lpf Urine Mucus (None) /hpf Stool Occult Blood Positive H (Negative) 03/17/23 03/17/23 03/17/23 Range/Units 15:50 19:19 19:19 RBC (3.80-5.40) m/uL Hgb (11.4-16.0) gm/dL Hct (34.0-46.0) % MCV (80.0-100.0) fL MCHC (31.0-37.0) g/dL RDW (11.5-15.5) % Plt Count (150-450) k/uL Neutrophils # (Manual) (1.3-7.7) k/uL Lymphocytes # (Manual) (1.0-4.8) k/uL Metamyelocytes # (Man) (0) k/uL Myelocytes # (Manual) (0) k/uL Macrocytosis PT (10.0-12.5) sec INR (<1.2) Carbon Dioxide (22-30) mmol/L BUN (7-17) mg/dL Creatinine (0.52-1.04) mg/dL Glucose (74-99) mg/dL Plasma Lactic Acid Edu 5.5 H* (0.7-2.0) mmol/L Calcium (8.4-10.2) mg/dL AST (14-36) U/L ALT (4-34) U/L Troponin I 0.157 H* 0.253 H* (0.000-0.034) ng/mL Total Protein (6.3-8.2) g/dL Albumin (3.5-5.0) g/dL Urine Appearance (Clear) Urine Protein (Negative) Urine Blood (Negative) Urine RBC (0-5) /hpf Urine WBC (0-5) /hpf Amorphous Sediment (None) /hpf Urine Bacteria (None) /hpf Hyaline Casts (0-2) /lpf Urine Mucus (None) /hpf Stool Occult Blood (Negative) 03/17/23 03/18/23 03/18/23 Range/Units 22:26 02:00 10:34 RBC (3.80-5.40) m/uL Hgb (11.4-16.0) gm/dL Hct (34.0-46.0) % MCV (80.0-100.0) fL MCHC (31.0-37.0) g/dL RDW (11.5-15.5) % Plt Count (150-450) k/uL Neutrophils # (Manual) (1.3-7.7) k/uL Lymphocytes # (Manual) (1.0-4.8) k/uL Metamyelocytes # (Man) (0) k/uL Myelocytes # (Manual) (0) k/uL Macrocytosis PT (10.0-12.5) sec INR (<1.2) Carbon Dioxide 14 L (22-30) mmol/L BUN 67 H (7-17) mg/dL Creatinine 3.00 H (0.52-1.04) mg/dL Glucose (74-99) mg/dL Plasma Lactic Acid Edu 4.4 H* (0.7-2.0) mmol/L Calcium 7.1 L (8.4-10.2) mg/dL AST 462 H (14-36) U/L ALT 241 H (4-34) U/L Troponin I (0.000-0.034) ng/mL Total Protein 5.2 L (6.3-8.2) g/dL Albumin 2.8 L (3.5-5.0) g/dL Urine Appearance Cloudy H (Clear) Urine Protein 1+ H (Negative) Urine Blood Small H (Negative) Urine RBC 8 H (0-5) /hpf Urine WBC 37 H (0-5) /hpf Amorphous Sediment Few H (None) /hpf Urine Bacteria Few H (None) /hpf Hyaline Casts 454 H (0-2) /lpf Urine Mucus Moderate H (None) /hpf Stool Occult Blood (Negative) 03/18/23 03/18/23 Range/Units 10:34 10:34 RBC 2.69 L (3.80-5.40) m/uL Hgb 9.2 L (11.4-16.0) gm/dL Hct 30.3 L (34.0-46.0) % MCV 112.7 H D (80.0-100.0) fL MCHC 30.4 L (31.0-37.0) g/dL RDW 17.5 H (11.5-15.5) % Plt Count 124 L (150-450) k/uL Neutrophils # (Manual) (1.3-7.7) k/uL Lymphocytes # (Manual) (1.0-4.8) k/uL Metamyelocytes # (Man) (0) k/uL Myelocytes # (Manual) (0) k/uL Macrocytosis Marked A PT (10.0-12.5) sec INR (<1.2) Carbon Dioxide (22-30) mmol/L BUN (7-17) mg/dL Creatinine (0.52-1.04) mg/dL Glucose (74-99) mg/dL Plasma Lactic Acid Edu 2.5 H* (0.7-2.0) mmol/L Calcium (8.4-10.2) mg/dL AST (14-36) U/L ALT (4-34) U/L Troponin I (0.000-0.034) ng/mL Total Protein (6.3-8.2) g/dL Albumin (3.5-5.0) g/dL Urine Appearance (Clear) Urine Protein (Negative) Urine Blood (Negative) Urine RBC (0-5) /hpf Urine WBC (0-5) /hpf Amorphous Sediment (None) /hpf Urine Bacteria (None) /hpf Hyaline Casts (0-2) /lpf Urine Mucus (None) /hpf Stool Occult Blood (Negative) Microbiology - Last 24 Hours (Table) 03/17/23 16:00 Blood Culture Gram Stain - Preliminary Blood Assessment and Plan (1) Gram-positive bacteremia Current Visit: Yes Status: Acute Code(s): R78.81 - BACTEREMIA SNOMED Code(s): 430962420467 (2) Leukocytosis Current Visit: Yes Status: Acute Code(s): D72.829 - ELEVATED WHITE BLOOD CELL COUNT, UNSPECIFIED SNOMED Code(s): 864638845 (3) Left leg cellulitis Current Visit: No Status: Acute Code(s): L03.116 - CELLULITIS OF LEFT LOWER LIMB SNOMED Code(s): 36336675170193240 Plan: 1patient presented to hospital with increasing weakness and did have a fall source is multifactorial patient noticed to have a left lower extremity cellulitis likely contributing to some of her symptomatology likely from gram- positive skin isha 2-patient did have Streptococcus agalactiae bacteremia source in this left lower extremity cellulitis 3-renal insufficiency high risk of nephrotoxicity limiting the use of drugs 4-antibiotic will be switched to cefazolin dosed history of the kidney function 5-kenny the area of the redness to left leg and light Chris wrap to keep the swelling down Daughter at the bedside multiple question concern answered We will follow on clinical condition and cultures to further adjust medication if needed Thank you for this consultation we will follow the patient along with you Dictation was produced using [employer] dictation software. please excuse any grammatical, word or spelling errors. Time with Patient: Greater than 30
[2023-03-19 08:39] LABS: Anisocytosis Slight; HCT 29.3 % (34.0-46.0); HGB 8.8 gm/dL (11.4-16.0); Hypochromasia Marked; MCH 34.7 pg (25.0-35.0); MCHC 30.1 g/dL (31.0-37.0); MCV 115.2 fL (80.0-100.0); Macrocytosis Marked; Platelet Count 127 k/uL (150-450); RBC 2.54 m/uL (3.80-5.40); RDW 17.4 % (11.5-15.5)
--- NOTE | 2023-03-19 08:50 | XR ---
EXAMINATION TYPE: XR chest 1V portable DATE OF EXAM: 03/19/2023 Comparison: 03/18/2023 Clinical History: 87-year-old female CHF Findings: Left anterior chest wall pacemaker generator with right ventricular lead. Heart moderately enlarged. Diffuse interstitial densities. Small right pleural effusion. Trace left effusion. Patchy bibasilar o pacities. Atherosclerotic arch calcifications. Impression: Interval development of CHF with mild interstitial pulmonary edema. Small right greater than left ple ural effusions with adjacent atelectasis and/or consolidation have also developed.
--- NOTE | 2023-03-19 10:12 | P.CNNES ---
History of Present Illness Consult date: 03/18/23 Requesting physician: Lexis Bonilla Reason for Consult: stroke?? History of Present Illness: Patient is a 87-year-old female with history of atrial fibrillation, currently on aspirin and Eliquis, hypertension, came to the hospital by ambulance yesterday at 10:38 AM for a syncopal spell. Patient's caregiver Nelida was pre sent, who provided the history. She comes every morning for caregiving at 9 AM and usually leaves by 1 PM. About an hour prior to her arrival, patient was walking with her walker, has done rinsing dishes, when she turned around, when her knees gave way and she slid on the floor. She just sat down on the floor, and was not able to get up by herself. Patient states that she did not hit her head, did not fall, did not pass out or lost consciousness. She stayed in that position, until her caregiver Nelida came at around 9 AM. She called lift assist and they were able to get her up on the feet and patient felt okay otherwise. Patient was able to walk to the bathroom, which is of very short distances she lives in a mobile home, but later patient's caregiver noticed that she had blood in the front part of her brief, almost like menstrual blood. Patient was having little hard time talking. There was no facial droop. Patient was looking generalized weak, therefore she called the EMS again and this time patient was brought to the hospital. Patient's caregiver has not noticed any focal weakness, double vision, loss of vision, or any obvious facial droop. EMS flow sheet not available in the chart. Vital signs on arrival blood pressure 85/47, pulse is 74 temperature 97.4. Orthostatics were checked, and supine blood pressure 118/76, sitting 109/82 and standing 119/80, negative o rthostatics. Blood test shows the BBC 13.3, hemoglobin 9.5, with elevated MCV 107.2 and platelets 177. INR 1.3. Electrolytes are normal, BUN 58, creatinine 2.51. Lactate was 6.7. AST 74, ALT 29. Troponin mildly elevated. Stool occult blood positive. Patient's blood culture is positive with strep agalactiae. Infectious disease has seen the patient, suspecting left leg cellulitis as the source of infection and bacteremia.check chest x-ray showed cardiomegaly. CT head showed subcortical hypodensity wi. Correlate for subcortical infarct. This may be old, consider MRI for initial evaluation. Periventricular white matter hypodensity, compatible with chronic white matter ischemic changes in the left centrum semiovale. I personally reviewed CT head, appears chronic area of ischemia with no acute infarct. EKG showed electronic ventricle a pacemaker. Venous Doppler of the left lower extremity was exam limited by edema and body habitus. No left lower extremity DVT is identified. Past Medical History Past Medical History: Atrial Fibrillation, Cancer, GERD/Reflux, Hyperlipidemia, Hypertension, Osteoarthritis (OA), Syncope Additional Past Medical History / Comment(s): uterine cancer 14 yrs. ago, surg. & radiation, IGT,chronic dependent edema left leg-leg wrapped, VARICOSE VEINS, urinary incontinence, recent admission to [facility] for fall & syncope History of Any Multi-Drug Resistant Organisms: None Reported Past Surgical History: Bowel Resection, Hysterectomy, Tonsillectomy Additional Past Surgical History / Comment(s): lung surgery left thoracotomy negative for lung mass 2007?, SMALL VAGINAL MASS REMOVED, COLONOSCOPY,ELISEO CATAR ACT. Past Anesthesia/Blood Transfusion Reactions: No Reported Reaction Past Psychological History: No Psychological Hx Reported Smoking Status: Former smoker Past Alcohol Use History: Occasional Additional Past Alcohol Use History / Comment(s): SMOKED FOR 5 YEARS IN HER ROXANA Y 29'S THEN QUIT Past Drug Use History: None Reported - Past Family History Father Family Medical History: Coronary Artery Disease (CAD) Mother Family Medical History: Coronary Artery Disease (CAD) Brother(s) Family Medical History: Cancer Son(s) Family Medical History: Respiratory Disorder Medications and Allergies Home Medications Medication Instructions Recorded Confirmed Type Aspirin 81 mg PO W/SUPPER 05/10/15 03/17/23 History Atorvastatin Calcium [Lipitor] 10 mg PO W/SUPPER 05/10/15 03/17/23 History Latanoprost Ophth [Xalatan 0.005%] 1 drop BOTH EYES HS 04/24/19 03/17/23 History Multivitamins, Thera [Multivitamin 1 tab PO W/LUNCH 04/24/19 03/17/23 History (formulary)] Apixaban [Eliquis] 2.5 mg PO BID-W/MEALS 03/18/22 03/17/23 History Calcium Carbonate 500 mg PO W/LUNCH 03/18/22 03/17/23 History Cholecalciferol (Vitamin D3) 125 mcg PO W/LUNCH 03/18/22 03/17/23 History [Vitamin D3 (125 MCG = 5,000 IU)] Dorzolamide-Timol 2.23%/0.68% 1 drop BOTH EYES BID 03/18/22 03/17/23 History [Cosopt] Losartan Potassium 100 mg PO W/BRKFST 03/18/22 03/17/23 History Melatonin 5 - 10 mg PO HS 03/18/22 03/17/23 History Pantoprazole [Protonix] 40 mg PO BID-W/MEALS 03/18/22 03/17/23 History Baclofen [Lioresal] 5 mg PO W/BRKFST 03/17/23 03/17/23 History Cetirizine HCl 10 mg PO W/BRKFST 03/17/23 03/17/23 History Ferrous Sulfate [Feosol] 325 mg PO DAILY 03/17/23 03/17/23 History Magnesium Oxide [Mag-Ox] 400 mg PO W/BRKFST 03/17/23 03/17/23 History Metoprolol Succinate (ER) [Toprol 50 mg PO W/BRKFST 03/17/23 03/17/23 History Xl] Sennosides [Senokot] 8.6 - 17.2 mg PO HS 03/17/23 03/17/23 History Torsemide [Demadex] 20 mg PO W/BRKFST 03/17/23 03/17/23 History allopurinoL [Zyloprim] 100 mg PO W/BRKFST 03/17/23 03/17/23 History Allergies Allergy/AdvReac Type Severity Reaction Status Date / Time No Known Allergies Allergy Verified 03/17/23 15:28 Physical Examination - Vital Signs Vital Signs: Vital Signs Temp Pulse Pulse Resp BP BP BP 03/18/23 11:37 97.9 F 62 03/18/23 08:43 03/18/23 08:00 97.5 F L 69 03/18/23 04:05 97.6 F 72 20 03/18/23 03:46 24 03/18/23 01:30 03/18/23 01:20 03/18/23 01:18 03/18/23 01:05 03/18/23 00:52 03/18/23 00:45 03/17/23 23:42 97.6 F 89 18 03/17/23 23:20 03/17/23 23:15 03/17/23 23:05 03/17/23 23:00 03/17/23 22:00 20 03/17/23 20:45 97.7 F 77 20 03/17/23 19:33 73 22 119/88 03/17/23 18:57 69 18 118/88 03/17/23 15:54 109/82 119/80 BP BP Pulse Ox 03/18/23 11:37 114/75 98 03/18/23 08:43 95 03/18/23 08:00 102/55 95 03/18/23 04:05 105/69 99 03/18/23 03:46 03/18/23 01:30 101/59 03/18/23 01:20 104/54 03/18/23 01:18 104/60 03/18/23 01:05 104/54 03/18/23 00:52 83/56 03/18/23 00:45 74/48 03/17/23 23:42 92/67 98 03/17/23 23:20 75/53 03/17/23 23:15 94/51 03/17/23 23:05 88/62 03/17/23 23:00 79/55 03/17/23 22:00 03/17/23 20:45 98/66 92 L 03/17/23 19:33 95 03/17/23 18:57 97 03/17/23 15:54 118/76 Intake and Output 03/18/23 03/18/23 03/18/23 06:59 14:59 22:59 Intake Total 10 120 Output Total 50 Balance 10 70 Intake: IV 10 Invasive Line 2 10 Oral 120 Output: Urine 50 Other: Voiding Method External Catheter Indwelling Catheter # Bowel Movements 2 Weight 63 kg Patient is an elderly female, very pleasant, in no acute distress. Patient is alert awake oriented to time place and person. She knows it is March and the year is and that she is in [facility]. Patient appears slightly encephalopathic. She has very slightly slow mentation. Speech and language functions are normal. Patient can name and repeat very well. No aphasia or dysarthria. Attention, concentration and fund of knowledge is adequate. On cranial nerve examination, pupils are equal, round and reacting to light, visual castanon are full on confrontation, with no neglect on double simultaneous stimulation. Extraocular muscles are intact with no nystagmus. Face is symmetric, tongue protrudes to the midline. Palatal elevation and sensation normal, hearing and shoulder shrug normal, facial sensation normal. On muscle strength testing, there is no pronator drift and the strength is normal in arms and legs distally and proximally, except hip flexion, which are very weak bilaterally because of body stature, and also significant bilateral leg edema. Deep tendon reflexes are symmetric, diminished and plantars are flat bilaterally. Sensory to touch is equal with no neglect on double simultaneous stimulation. Cerebellar function showed no ataxia for [id number] testing. No dysdiadochokinesia. Cannot check for [id number] testing. Tone and bulk of muscles normal. Gait deferred.. On general examination, there is no carotid bruit or murmur, S1-S2 audible. Chest is clear on consultation. Abdomen is soft nontender. No organomegaly, bowel sounds present. Patient has severe peripheral edema. Left leg cellulitis. Results - Laboratory Findings CBC and BMP: 03/19/23 08:24 03/18/23 10:34 Abnormal Lab Findings: Abnormal Labs 03/17/23 03/17/23 03/17/23 11:54 11:54 13:13 WBC 13.3 H RBC 2.72 L Hgb 9.5 L Hct 29.1 L MCV 107.2 H MCH 35.1 H MCHC RDW 17.4 H Plt Count Neutrophils # (Manual) 12.10 H Lymphocytes # (Manual) 0.13 L Metamyelocytes # (Man) 0.53 H Myelocytes # (Manual) 0.13 H Macrocytosis Marked A PT 13.2 H INR 1.3 H Carbon Dioxide BUN Creatinine Glucose Plasma Lactic Acid Edu 6.7 H* Calcium AST ALT Troponin I Total Protein Albumin Urine Appearance Urine Protein Urine Blood Urine RBC Urine WBC Amorphous Sediment Urine Bacteria Hyaline Casts Urine Mucus Stool Occult Blood 03/17/23 03/17/23 03/17/23 13:13 13:13 13:20 WBC RBC Hgb Hct MCV MCH MCHC RDW Plt Count Neutrophils # (Manual) Lymphocytes # (Manual) Metamyelocytes # (Man) Myelocytes # (Manual) Macrocytosis PT INR Carbon Dioxide 17 L BUN 58 H Creatinine 2.51 H Glucose 124 H Plasma Lactic Acid Edu Calcium AST 74 H ALT Troponin I 0.152 H* Total Protein 5.9 L Albumin Urine Appearance Urine Protein Urine Blood Urine RBC Urine WBC Amorphous Sediment Urine Bacteria Hyaline Casts Urine Mucus Stool Occult Blood Positive H 03/17/23 03/17/23 03/17/23 15:50 15:50 19:19 WBC RBC Hgb Hct MCV MCH MCHC RDW Plt Count Neutrophils # (Manual) Lymphocytes # (Manual) Metamyelocytes # (Man) Myelocytes # (Manual) Macrocytosis PT INR Carbon Dioxide BUN Creatinine Glucose Plasma Lactic Acid Edu 4.3 H* Calcium AST ALT Troponin I 0.157 H* 0.253 H* Total Protein Albumin Urine Appearance Urine Protein Urine Blood Urine RBC Urine WBC Amorphous Sediment Urine Bacteria Hyaline Casts Urine Mucus Stool Occult Blood 03/17/23 03/17/23 03/18/23 19:19 22:26 02:00 WBC RBC Hgb Hct MCV MCH MCHC RDW Plt Count Neutrophils # (Manual) Lymphocytes # (Manual) Metamyelocytes # (Man) Myelocytes # (Manual) Macrocytosis PT INR Carbon Dioxide BUN Creatinine Glucose Plasma Lactic Acid Edu 5.5 H* 4.4 H* Calcium AST ALT Troponin I Total Protein Albumin Urine Appearance Cloudy H Urine Protein 1+ H Urine Blood Small H Urine RBC 8 H Urine WBC 37 H Amorphous Sediment Few H Urine Bacteria Few H Hyaline Casts 454 H Urine Mucus Moderate H Stool Occult Blood 03/18/23 03/18/23 03/18/23 10:34 10:34 10:34 WBC RBC 2.69 L Hgb 9.2 L Hct 30.3 L MCV 112.7 H D MCH MCHC 30.4 L RDW 17.5 H Plt Count 124 L Neutrophils # (Manual) Lymphocytes # (Manual) 0.43 L Metamyelocytes # (Man) 0.17 H Myelocytes # (Manual) Macrocytosis Marked A PT INR Carbon Dioxide 14 L BUN 67 H Creatinine 3.00 H Glucose Plasma Lactic Acid Edu 2.5 H* Calcium 7.1 L AST 462 H ALT 241 H Troponin I Total Protein 5.2 L Albumin 2.8 L Urine Appearance Urine Protein Urine Blood Urine RBC Urine WBC Amorphous Sediment Urine Bacteria Hyaline Casts Urine Mucus Stool Occult Blood Assessment and Plan Assessment: * Status post fall, due to losing balance, and knees giving out. Patient did not pass out, lost consciousness or fainted. Patient denies any focal symptoms whatsoever. Patient's current neurological examination is completely normal, with NIH stroke scale of 0. No clinical evidence of stroke/TIA. * Bacteremia, with Streptococcus agalactiae * Left leg cellulitis * Macrocytic anemia * Lactic acidosis * Elevated cardiac enzymes * Acute kidney injury, ATN, non-oliguric secondary to hypotension and underlying infection. * Elevated liver enzymes * Stool occult blood positive. * Remote history of uterine cancer * Pacemaker Plan: * Does not appear patient had any stroke or TIA. Patient just lost balance, and slid down without hurting herself, or passing out. Patient denies any focal symptoms whatsoever. Her current neurological examination is nonfocal. No evidence of acute stroke/TIA. * Carotid Doppler revealed elevated left internal carotid artery velocity with stenosis between 50 and 69%. Nonvisualization of the right vertebral artery. Antegrade flow in the left vertebral artery. * Patient has atrial fibrillation, continue Eliquis 2.5 mg twice a day and aspirin 81 mg, if no medical contraindications. At present Eliquis seems to be on hold because of positive stool occult blood. * We will check B12, folate, MMA for macrocytic anemia * No other neurological workup indicated at this time. * Patient has cellulitis, currently on cefazolin 2 g every 8 hours. ID on board. * Medical management as per IM and other specialties on board. * Thank you for the consult. Time with Patient: Greater than 30
[2023-03-19] MEDS ORDERED: FUROSEMIDE 10 MG/ML 2 ML VIAL IV ONE (10:22)
[2023-03-19] MEDS: MAGNESIUM OXIDE 400 MG TAB PO SCH (10:34)
[2023-03-19] MEDS: allopurinoL 100 MG TAB PO SCH (10:34)
[2023-03-19] MEDS: PANTOPRAZOLE 40 MG TABLET PO SCH (10:35)
[2023-03-19] MEDS: DORZOLAMIDE-TIMOLOL 2.23%/0.68 10ML BTL BOTH EYES SCH (10:44)
[2023-03-19 11:13] LABS: Glucose,Whole Blood 98 mg/dL (70-110)
[2023-03-19 11:16] LABS: ALT 388 U/L (4-34); AST 645 U/L (14-36); Albumin 2.6 g/dL (3.5-5.0); Alkaline Phosphatase 140 U/L (38-126); Anion Gap 18 mmol/L; Blood Urea Nitrogen 79 mg/dL (7-17); Carbon Dioxide 13 mmol/L (22-30); Chloride 108 mmol/L (98-107); Glucose 79 mg/dL (74-99); Potassium 4.9 mmol/L (3.5-5.1); Sodium 139 mmol/L (137-145); Total Bilirubin 1.1 mg/dL (0.2-1.3); Total Protein 4.9 g/dL (6.3-8.2)
[2023-03-19 11:19] LABS: African American GFR (CKD) 13 (>60 ml/min/1.73 sqM); Non-African American GFR(CKD) 11 (>60 ml/min/1.73 sqM)
[2023-03-19] MEDS ORDERED: NOREPINEPHRINE 4 MG in SODIUM CHLORIDE 0.9% 250 ML IV SCH (11:45)
[2023-03-19] MEDS ORDERED: DEXTROSE 50% SYRINGE 50 ML IVP ONE (11:50)
[2023-03-19 11:56] LABS: Glucose,Whole Blood 65 mg/dL (70-110)
[2023-03-19 12:01] VITALS: TEMP 97.8
[2023-03-19 12:14] LABS: Glucose,Whole Blood 133 mg/dL (70-110)
[2023-03-19] MEDS: SODIUM CHLORIDE 0.9% 1,000 ML IV SCH (12:28)
[2023-03-19] MEDS: MULTIVITAMINS, THERA 1 EACH TAB PO SCH (12:30)
[2023-03-19] MEDS: CHOLECALCIFEROL 125 MCG (5000 IU) TABLET PO SCH (12:30)
[2023-03-19] MEDS: CALCIUM CARBONATE 500 MG CHEWABLE PO SCH (12:30)
[2023-03-19 12:43] LABS: Band Neutrophils % 14 %; Basophils # (M) 0.13 k/uL (0-0.2); Lymphocytes # (M) 0.38 k/uL (1.0-4.8); Metamyelocytes # (M) 0.13 k/uL (0); Metamyelocytes % 1 %; Neutrophils % (M) 75 %; Nucleated Red Blood Cells 1 /100 WBC (0-0); Total Cells Counted 200
[2023-03-19 12:44] LABS: Monocytes # (M) 0.88 k/uL (0-1.0); WBC 12.6 k/uL (3.8-10.6)
[2023-03-19 12:45] LABS: Large Platelets Present; Toxic Vacuolation Present
[2023-03-19] MEDS ORDERED: IPRATROPIUM-ALBUTEROL 3 ML NEB INHALATION SCH (13:00)
[2023-03-19 13:07] LABS: C Reactive Protein 65.3 mg/dL (<1.0)
--- NOTE | 2023-03-19 13:13 | PN ---
PROGRESS NOTE DATE OF SERVICE: 03/19/2023 SUBJECTIVE: This is an 87-year-old woman who was admitted with weakness and possible sepsis, had a stroke also. The patient continues to progress. The patient is also hypotensive. Patient was transferred to ICU at this time. The patient also had features of fluid overload on the chest x-ray also. PAST MEDICAL HISTORY: Reviewed. REVIEW OF SYSTEMS: Could not be taken as the patient is stuporous. CURRENT MEDICATIONS: Reviewed include zyloprim, doses and rest of medications noted. PHYSICAL EXAMINATION: VITAL SIGNS: Pulse is 64, blood pressure is 111/50, and respirations 18. CHEST: A few scattered rhonchi and crackles. ABDOMEN: Soft, nontender. NERVOUS SYSTEM: Diffusely weak. LABORATORY DATA: WBC 12.6, and lactic acid is 2.3. ASSESSMENT: 1. Fall and weakness, possible sepsis with UTI and strep agalactiae sepsis. 2. Possible acute metabolic encephalopathy. 3. Hypotension, possibly secondary to sepsis. 4. Possible acute left centrum semiovale subcortical hypodensity and stroke. 5. Increased WBC. 6. Anemia. 7. Relative hypotension. 8. Elevated creatinine with acute renal failure with acute tubular necrosis, troponin 0.152, rule out acute myocardial infarction, coronary disease, history of atrial fibrillation. 9. GERD. 10.Possible CHF and fluid overload. 11.Hypertension. 12.Hyperlipidemia. 13.No code, no CPR, no vent. Okay for pressors per family. RECOMMENDATIONS AND DISCUSSION: This 87-year-old woman presented with multiple complex medical issues we will monitor the patient closely. Continue with broad-spectrum IV antibiotics, otherwise we will cut down the IV fluids closely monitored with Cardiology and pulmonology. Pressor support if the blood pressure does not improve. Follow the cultures. Guarded prognosis because of multiple complex medical issues. Further recommendations to follow. See orders for details. MMODL / IJN: [id number] /
[2023-03-19] MEDS ORDERED: SCOPOLAMINE 1 MG/72 HR PATCH TRANSDERM SCH (14:00)
--- NOTE | 2023-03-19 14:04 | P.PN ---
Subjective Patient is seen in follow-up for acute kidney injury. Renal function worsening. Creatinine 3.56 today. Patient was Agnelli breathing this morning and blood pressure was low but now improved. No vasopressors. She was subsequently transferred to the ICU. She is currently on a nonrebreather. Patient is not responsive. Caregivers present at bedside. Vital signs are stable. General: Resting in bed. HEENT: On nonrebreather. LUNGS: Scattered rhonchi. HEART: Rate and Rhythm are regular. ABDOMEN: No distention. EXTREMITITES: 2+ edema. Objective - Vital Signs Vital signs: Vital Signs Temp 97.8 F 03/19/23 11:55 Pulse 61 03/19/23 13:45 Resp 18 03/19/23 13:45 BP 100/51 03/19/23 13:45 Pulse Ox 100 03/19/23 11:55 FiO2 Intake & Output 03/18/23 03/19/23 03/19/23 18:59 06:59 18:59 Intake Total 1370 20 40 Output Total 100 20 12 Balance 1270 0 28 Weight 61.5 kg Intake: IV 20 40 Invasive Line 2 20 20 Sodium Chloride 0.9% 1, 20 000 ml @ 50 mls/hr IV . Q20H MARIANO Rx#:[id number] Intake, IV Titration 1250 Amount Sodium Chloride 0.9% 1, 1200 000 ml @ 50 mls/hr IV . Q20H MARIANO Rx#:[id number] ceFAZolin 2 gm In Sodium 50 Chloride 0.9% 50 ml @ 100 mls/hr IVPB Q8HR MARIANO Rx# :[id number] Oral 120 Output: Urine 100 20 12 Other: Voiding Method Indwelling Catheter Indwelling Catheter Indwelling Catheter # Bowel Movements 1 - Labs CBC & Chem 7: 03/19/23 08:24 03/19/23 07:56 Labs: Abnormal Lab Results - Last 24 Hours (Table) 03/18/23 03/18/23 03/18/23 Range/Units 15:06 18:17 21:31 WBC (3.8-10.6) k/uL RBC (3.80-5.40) m/uL Hgb (11.4-16.0) gm/dL Hct (34.0-46.0) % MCV (80.0-100.0) fL MCHC (31.0-37.0) g/dL RDW (11.5-15.5) % Plt Count (150-450) k/uL Neutrophils # (Manual) (1.3-7.7) k/uL Lymphocytes # (Manual) (1.0-4.8) k/uL Metamyelocytes # (Man) (0) k/uL Nucleated RBCs (0-0) /100 WBC Macrocytosis Chloride (98-107) mmol/L Carbon Dioxide (22-30) mmol/L BUN (7-17) mg/dL Creatinine (0.52-1.04) mg/dL POC Glucose (mg/dL) (70-110) mg/dL Plasma Lactic Acid Edu 4.1 H* 4.5 H* 4.1 H* (0.7-2.0) mmol/L Calcium (8.4-10.2) mg/dL AST (14-36) U/L ALT (4-34) U/L Alkaline Phosphatase (38-126) U/L C-Reactive Protein (<1.0) mg/dL Total Protein (6.3-8.2) g/dL Albumin (3.5-5.0) g/dL 03/19/23 03/19/23 03/19/23 Range/Units 00:38 07:56 08:24 WBC 12.6 H (3.8-10.6) k/uL RBC 2.54 L (3.80-5.40) m/uL Hgb 8.8 L (11.4-16.0) gm/dL Hct 29.3 L (34.0-46.0) % MCV 115.2 H (80.0-100.0) fL MCHC 30.1 L (31.0-37.0) g/dL RDW 17.4 H (11.5-15.5) % Plt Count 127 L (150-450) k/uL Neutrophils # (Manual) 11.20 H (1.3-7.7) k/uL Lymphocytes # (Manual) 0.38 L (1.0-4.8) k/uL Metamyelocytes # (Man) 0.13 H (0) k/uL Nucleated RBCs 1 H (0-0) /100 WBC Macrocytosis Marked A Chloride 108 H (98-107) mmol/L Carbon Dioxide 13 L (22-30) mmol/L BUN 79 H (7-17) mg/dL Creatinine 3.56 H (0.52-1.04) mg/dL POC Glucose (mg/dL) (70-110) mg/dL Plasma Lactic Acid Edu 3.5 H* (0.7-2.0) mmol/L Calcium 7.0 L (8.4-10.2) mg/dL AST 645 H (14-36) U/L ALT 388 H (4-34) U/L Alkaline Phosphatase 140 H (38-126) U/L C-Reactive Protein 65.3 H (<1.0) mg/dL Total Protein 4.9 L (6.3-8.2) g/dL Albumin 2.6 L (3.5-5.0) g/dL 03/19/23 03/19/23 03/19/23 Range/Units 08:24 11:48 12:12 WBC (3.8-10.6) k/uL RBC (3.80-5.40) m/uL Hgb (11.4-16.0) gm/dL Hct (34.0-46.0) % MCV (80.0-100.0) fL MCHC (31.0-37.0) g/dL RDW (11.5-15.5) % Plt Count (150-450) k/uL Neutrophils # (Manual) (1.3-7.7) k/uL Lymphocytes # (Manual) (1.0-4.8) k/uL Metamyelocytes # (Man) (0) k/uL Nucleated RBCs (0-0) /100 WBC Macrocytosis Chloride (98-107) mmol/L Carbon Dioxide (22-30) mmol/L BUN (7-17) mg/dL Creatinine (0.52-1.04) mg/dL POC Glucose (mg/dL) 65 L 133 H (70-110) mg/dL Plasma Lactic Acid Edu 2.3 H* (0.7-2.0) mmol/L Calcium (8.4-10.2) mg/dL AST (14-36) U/L ALT (4-34) U/L Alkaline Phosphatase (38-126) U/L C-Reactive Protein (<1.0) mg/dL Total Protein (6.3-8.2) g/dL Albumin (3.5-5.0) g/dL Microbiology - Last 24 Hours (Table) 03/17/23 16:00 Blood Culture Gram Stain - Preliminary Blood Blood Culture - Preliminary Strep agalactiae - (group b) Assessment and Plan Plan: Assessment: 1. Acute kidney injury secondary to ATN secondary to hypotension/severe sepsis. Creatinine 3.56 today. 2. Acute hypoxic respiratory failure. 3. Volume overload. 4. Metabolic acidosis secondary to acute kidney injury and lactic acidosis. 5. Strep bacteremia on antibiotics. Plan: Lasix 60 mg IV once now. Add midodrine. Follow-up kidney ultrasound and echocardiogram. Hospice being considered. Prognosis guarded.
[2023-03-19] MEDS ORDERED: LORazepam 2 MG/ML INJ IV PRN (14:07)
[2023-03-19] MEDS ORDERED: GLYCOPYRROLATE 0.2 MG/ML 2 ML VIAL IVP PRN (14:07)
[2023-03-19] MEDS ORDERED: ATROPINE OPHTH SOLN 1% 5ML BTL SUBLINGUAL PRN (14:07)
[2023-03-19] MEDS ORDERED: MORPHINE SULFATE 4 MG/ML SYRINGE IV PRN (14:07)
[2023-03-19 15:13] VITALS: BP 92/44; PULSE 60; RESP 20
--- NOTE | 2023-03-19 15:59 | P.PN ---
Subjective Progress Note Date: 03/19/23 CHIEF COMPLAINT: Fall with black stools and bright red stools HISTORY OF PRESENT ILLNESS: Patient is seen on cardiac floor this morning. She was lethargic and unresponsive. Hypotensive. Hemoglobin did decrease from 9.2- 8.8. Patient's CODE STATUS DO NOT RESUSCITATE. Nursing staff was calling [facility] and patient would be transferred to the ICU. Afebrile. PHYSICAL EXAM: VITAL SIGNS: Reviewed. GENERAL: Obtunded ABDOMEN: Soft. Nondistended. Nontender. ASSESSMENT: 1. Acute GI bleed 2. Anemia with melanotic stools and bright red blood PLAN: -Initially had recommended plans for endoscopy when medically stable. However, as noted patient has been transitioned to comfort care. Physician Hoop Machine Operator note has been reviewed by physician. Signing provider agrees with the documented findings, assessment, and plan of care. Objective - Vital Signs Vital signs: Vital Signs Temp 97.8 F 03/19/23 11:55 Pulse 60 03/19/23 15:00 Resp 20 03/19/23 15:00 BP 92/44 03/19/23 15:00 Pulse Ox 99 03/19/23 14:00 FiO2 Intake & Output 03/18/23 03/19/23 03/19/23 18:59 06:59 18:59 Intake Total 1370 20 40 Output Total 100 20 12 Balance 1270 0 28 Weight 61.5 kg Intake: IV 20 40 Invasive Line 2 20 20 Sodium Chloride 0.9% 1, 20 000 ml @ 50 mls/hr IV . Q20H MARIANO Rx#:[id number] Intake, IV Titration 1250 Amount Sodium Chloride 0.9% 1, 1200 000 ml @ 50 mls/hr IV . Q20H MARIANO Rx#:[id number] ceFAZolin 2 gm In Sodium 50 Chloride 0.9% 50 ml @ 100 mls/hr IVPB Q8HR MARIANO Rx# :[id number] Oral 120 Output: Urine 100 20 12 Other: Voiding Method Indwelling Catheter Indwelling Catheter Indwelling Catheter # Bowel Movements 1 - Labs CBC & Chem 7: 03/19/23 08:24 03/19/23 07:56 Labs: Abnormal Lab Results - Last 24 Hours (Table) 03/18/23 03/18/23 03/19/23 Range/Units 18:17 21:31 00:38 WBC (3.8-10.6) k/uL RBC (3.80-5.40) m/uL Hgb (11.4-16.0) gm/dL Hct (34.0-46.0) % MCV (80.0-100.0) fL MCHC (31.0-37.0) g/dL RDW (11.5-15.5) % Plt Count (150-450) k/uL Neutrophils # (Manual) (1.3-7.7) k/uL Lymphocytes # (Manual) (1.0-4.8) k/uL Metamyelocytes # (Man) (0) k/uL Nucleated RBCs (0-0) /100 WBC Macrocytosis Chloride (98-107) mmol/L Carbon Dioxide (22-30) mmol/L BUN (7-17) mg/dL Creatinine (0.52-1.04) mg/dL POC Glucose (mg/dL) (70-110) mg/dL Plasma Lactic Acid Edu 4.5 H* 4.1 H* 3.5 H* (0.7-2.0) mmol/L Calcium (8.4-10.2) mg/dL AST (14-36) U/L ALT (4-34) U/L Alkaline Phosphatase (38-126) U/L C-Reactive Protein (<1.0) mg/dL Total Protein (6.3-8.2) g/dL Albumin (3.5-5.0) g/dL 03/19/23 03/19/23 03/19/23 Range/Units 07:56 08:24 08:24 WBC 12.6 H (3.8-10.6) k/uL RBC 2.54 L (3.80-5.40) m/uL Hgb 8.8 L (11.4-16.0) gm/dL Hct 29.3 L (34.0-46.0) % MCV 115.2 H (80.0-100.0) fL MCHC 30.1 L (31.0-37.0) g/dL RDW 17.4 H (11.5-15.5) % Plt Count 127 L (150-450) k/uL Neutrophils # (Manual) 11.20 H (1.3-7.7) k/uL Lymphocytes # (Manual) 0.38 L (1.0-4.8) k/uL Metamyelocytes # (Man) 0.13 H (0) k/uL Nucleated RBCs 1 H (0-0) /100 WBC Macrocytosis Marked A Chloride 108 H (98-107) mmol/L Carbon Dioxide 13 L (22-30) mmol/L BUN 79 H (7-17) mg/dL Creatinine 3.56 H (0.52-1.04) mg/dL POC Glucose (mg/dL) (70-110) mg/dL Plasma Lactic Acid Edu 2.3 H* (0.7-2.0) mmol/L Calcium 7.0 L (8.4-10.2) mg/dL AST 645 H (14-36) U/L ALT 388 H (4-34) U/L Alkaline Phosphatase 140 H (38-126) U/L C-Reactive Protein 65.3 H (<1.0) mg/dL Total Protein 4.9 L (6.3-8.2) g/dL Albumin 2.6 L (3.5-5.0) g/dL 03/19/23 03/19/23 Range/Units 11:48 12:12 WBC (3.8-10.6) k/uL RBC (3.80-5.40) m/uL Hgb (11.4-16.0) gm/dL Hct (34.0-46.0) % MCV (80.0-100.0) fL MCHC (31.0-37.0) g/dL RDW (11.5-15.5) % Plt Count (150-450) k/uL Neutrophils # (Manual) (1.3-7.7) k/uL Lymphocytes # (Manual) (1.0-4.8) k/uL Metamyelocytes # (Man) (0) k/uL Nucleated RBCs (0-0) /100 WBC Macrocytosis Chloride (98-107) mmol/L Carbon Dioxide (22-30) mmol/L BUN (7-17) mg/dL Creatinine (0.52-1.04) mg/dL POC Glucose (mg/dL) 65 L 133 H (70-110) mg/dL Plasma Lactic Acid Edu (0.7-2.0) mmol/L Calcium (8.4-10.2) mg/dL AST (14-36) U/L ALT (4-34) U/L Alkaline Phosphatase (38-126) U/L C-Reactive Protein (<1.0) mg/dL Total Protein (6.3-8.2) g/dL Albumin (3.5-5.0) g/dL Microbiology - Last 24 Hours (Table) 03/17/23 16:00 Blood Culture Gram Stain - Preliminary Blood Blood Culture - Preliminary Strep agalactiae - (group b)
[2023-03-19] MEDS ORDERED: CLINDAMYCIN 900 MG in DEXTROSE 5% IN WATER 50 ML IVPB SCH ×2 (16:00)
[2023-03-19 17:06] LABS: Vitamin B12 >3600.0 pg/mL (200.0-944.0)
[2023-03-19] MEDS ORDERED: MIDODRINE 5 MG TAB PO SCH (17:30)
--- NOTE | 2023-03-20 09:52 | CA ---
Transthoracic Echo Report Name: Hiwot Yancey Age: 87 Gender: F : 1935 Exam Date: 03/19/2023 08:54 Exam Location: [facility] Ht (in): 58 Wt (lb): 105 Ordering Physician: Lexis Bonilla MD Attending/Referring Phys: [employer] Joan Sutton RDCS Procedure CPT: Indications: stroke Cardiac Hx: Technical Quality: Good Contrast 1: Total Dose (mL): Contrast 2: Total Dose (mL): MEASUREMENTS (Male / Female) Normal Values 2D ECHO LV Diastolic Diameter PLAX 5.8 cm 4.2 - 5.9 / 3.9 - 5.3 cm LV Systolic Diameter PLAX 3.9 cm IVS Diastolic Thickness 1.1 cm 0.6 - 1.0 / 0.6 - 0.9 cm LVPW Diastolic Thickness 1.2 cm 0.6 - 1.0 / 0.6 - 0.9 cm LV Relative Wall Thickness 0.4 RV Internal Dim ED PLAX 3.4 cm LVOT Diameter 1.9 cm LA Systolic Diameter LX 4.7 cm 3.0 - 4.0 / 2.7 - 3.8 cm LV Diastolic Volume MOD BP 45.6 cm??? 67 - 155 / 56 - 104 cm??? LV Systolic Volume MOD BP 22.2 cm??? 22 - 58 / 19 - 49 cm??? LV Ejection Fraction MOD BP 51.4 % >= 55 % LV Cardiac Index MOD BP 1151.8 cm???/min???m??? LV Diastolic Volume MOD 4C 51.2 cm??? LV Systolic Volume MOD 4C 29.0 cm??? LV Ejection Fraction MOD 4C 43.4 % LV Cardiac Index MOD 4C 1091.7 cm???/min???m??? LV Diastolic Length 4C 6.2 cm LV Systolic Length 4C 5.1 cm LV Diastolic Volume MOD 2C 37.9 cm??? LV Systolic Volume MOD 2C 16.7 cm??? LV Ejection Fraction MOD 2C 56.0 % LV Cardiac Index MOD 2C 1044.0 cm???/min???m??? LV Diastolic Length 2C 5.6 cm LV Systolic Length 2C 4.7 cm LA Volume 74.1 cm??? 18 - 58 / 22 - 52 cm??? LA Volume Index 52.8 cm???/m??? 16 - 28 cm???/m??? M-MODE Aortic Root Diameter MM 3.2 cm MV E Point Septal Separation 1.0 cm DOPPLER AV Peak Velocity 271.9 cm/s AV Peak Gradient 29.6 mmHg AV Mean Velocity 198.3 cm/s AV Mean Gradient 18.0 mmHg AV Velocity Time Integral 64.1 cm LVOT Peak Velocity 70.0 cm/s LVOT Peak Gradient 2.0 mmHg AV Area Cont Eq pk 0.7 cm??? MV Peak Velocity 133.2 cm/s MV Peak Gradient 7.1 mmHg MV Mean Velocity 55.5 cm/s MV Mean Gradient 1.7 mmHg MV Velocity Time Integral 32.0 cm MV Area PHT 3.2 cm??? Mitral E Point Velocity 117.1 cm/s Mitral A Point Velocity 40.5 cm/s Mitral E to A Ratio 2.9 MV Deceleration Time 236.6 ms TR Peak Velocity 318.9 cm/s TR Peak Gradient 40.7 mmHg Right Ventricular Systolic Press 48.0 mmHg FINDINGS Left Ventricle Left ventricular ejection fraction is estimated at 45-50 %. Mildly increased septal wall thickness. Mildly increased posterior wall thickness. Moderately increased left ventricular diastolic diameter. Mildly decreased left ventricular ejection fraction. Right Ventricle Mild right ventricular dilatation. Moderate pulmonary hypertension. Right Atrium Right atrial dilatation. Left Atrium Severely increased left atrial diameter. Severely increased left atrial volume. Mildly increased left atrial area. Mitral Valve Moderate thickening/calcification of the anterior mitral valve leaflet. Moderate thickening/calcification of the posterior mitral valve leaflet. Moderate mitral annular calcification. Mild mitral regurgitation. Aortic Valve Trileaflet aortic valve. Mild aortic stenosis with a peak gradient of 30 mmHg and a mean gradient of 18 mmHg. Tricuspid Valve Structurally normal tricuspid valve. Moderate tricuspid regurgitation. Pulmonic Valve Pulmonic valve not well visualized. No pulmonic regurgitation. Pericardium No pericardial effusion. Aorta Normal size aortic root and proximal ascending aorta. CONCLUSIONS LVH with mildly reduced LV systolic function of 50% RV enlargement with moderate pulmonary hypertension Very thickened posterior mitral valve with very prominent mitral annular calcification Aortic stenosis, calcific and the mean gradient of about 20 mmHg Previewed by: Dr. Dontrell Stoner MD (Electronically Signed) Final Date: 20 March 2023 09:51
--- NOTE | 2023-03-24 11:43 | P.DS ---
Providers Date of admission: 03/17/23 15:08 Expected date of discharge: 03/19/23 Attending physician: Lexis Bonilla Consults: 03/17/23 15:25 Consult Physician Urgent Consulting Provider: Benjamin Aviles Consult Reason/Comments: occult positive Do you want consulting provider notified?: Already Contacted 03/17/23 15:53 Consult Physician Routine Consulting Provider: Arti Trevino Consult Reason/Comments: stroke?? Do you want consulting provider notified?: Yes Consult Physician Routine Consulting Provider: Jigar Sow Consult Reason/Comments: sepsis Do you want consulting provider notified?: Yes Consult Physician Routine Consulting Provider: Jostin Barfield Consult Reason/Comments: chf, high trops Do you want consulting provider notified?: Yes 03/17/23 15:55 Consult Physician Routine Consulting Provider: Lizette Gordon Consult Reason/Comments: arf Do you want consulting provider notified?: Yes 03/19/23 07:43 Consult Physician Routine Consulting Provider: Marnie Noland Consult Reason/Comments: occult positive Do you want consulting provider notified?: Already Contacted 03/19/23 11:31 Consult Physician Urgent Consulting Provider: Guadalupe Breaux Consult Reason/Comments: ICU management Do you want consulting provider notified?: Yes Primary care physician: Tutu Davide [facility] Course: Preliminary cause of Sepsis secondary to urinary tract infection with strep agalactiae Final diagnosis Acute metabolic encephalopathy secondary to sepsis due to urinary tract infection, present on admission, cultures strep agalactiae Fall and weakness multifactorial with concerns of sepsis due to UTI as well as possible left centrum semiovale hypodensity in CVA Leukocytosis secondary to UTI Anemia, likely chronic Relative hypotension likely secondary to sepsis Acute renal failure with acute tubular necrosis Fluid overload History of hypertension although hypotensive secondary to sepsis Hyperlipidemia Troponin elevation 0.15 to, ruled out myocardial infarction, likely due to sepsis history of coronary artery disease history of atrial fibrillation No code, no CPR Discharge disposition Patient has . According to nursing documentation, time of was 1524 on 03/19/2023. Patient was placed on comfort measures and hospice. Total time taken is greater than 35 minutes. Hospital course This is a 87-year-old female who was recently admitted with weakness and concerns of sepsis with urinary tract infection as well as strong suspicion for CVA. Patient was hypotensive and unresponsive requiring transfer to the ICU as patient was no code although okay for pressors. Initially was transported to the ICU to start pressor support and After further discussion with family given overall prognosis patient was made hospice with comfort measures only. Please refer to other consultation notes for further HPI. According to nursing documentation, time of was 1524 on 03/19/2023. The impression and plan of care has been dictated by Krissy Chiu, Nurse Practitioner as directed. Dr. Chad MD I have performed a history and examination and MDM of this patient, discussed the same with the dictator, and agree with the dictator's assessment and plan as written ,documented as a scribe. Based on total visit time, I have performed more than 50% of the visit. Patient Condition at Discharge: Poor Plan - Discharge Summary Discharge Rx Participant: No New Discharge Prescriptions: No Action Aspirin 81 mg PO W/SUPPER Atorvastatin Calcium [Lipitor] 10 mg PO W/SUPPER Multivitamins, Thera [Multivitamin (formulary)] 1 tab PO W/LUNCH Latanoprost Ophth [Xalatan 0.005%] 1 drop BOTH EYES HS Apixaban [Eliquis] 2.5 mg PO BID-W/MEALS Calcium Carbonate 500 mg PO W/LUNCH Losartan Potassium 100 mg PO W/BRKFST Melatonin 5 - 10 mg PO HS Torsemide [Demadex] 20 mg PO W/BRKFST Metoprolol Succinate (ER) [Toprol Xl] 50 mg PO W/BRKFST Ferrous Sulfate [Feosol] 325 mg PO DAILY Cetirizine HCl 10 mg PO W/BRKFST Baclofen [Lioresal] 5 mg PO W/BRKFST Cholecalciferol (Vitamin D3) [Vitamin D3 (125 MCG = 5,000 IU)] 125 mcg PO W/LUNCH Dorzolamide-Timol 2.23%/0.68% [Cosopt] 1 drop BOTH EYES BID Pantoprazole [Protonix] 40 mg PO BID-W/MEALS allopurinoL [Zyloprim] 100 mg PO W/BRKFST Sennosides [Senokot] 8.6 - 17.2 mg PO HS Magnesium Oxide [Mag-Ox] 400 mg PO W/BRKFST Discharge Medication List Aspirin 81 mg PO W/SUPPER 05/10/15 [History] Atorvastatin Calcium [Lipitor] 10 mg PO W/SUPPER 05/10/15 [History] Latanoprost Ophth [Xalatan 0.005%] 1 drop BOTH EYES HS 04/24/19 [History] Multivitamins, Thera [Multivitamin (formulary)] 1 tab PO W/LUNCH 04/24/19 [History] Apixaban [Eliquis] 2.5 mg PO BID-W/MEALS 03/18/22 [History] Calcium Carbonate 500 mg PO W/LUNCH 03/18/22 [History] Cholecalciferol (Vitamin D3) [Vitamin D3 (125 MCG = 5,000 IU)] 125 mcg PO W/LUNCH 03/18/22 [History] Dorzolamide-Timol 2.23%/0.68% [Cosopt] 1 drop BOTH EYES BID 03/18/22 [History] Losartan Potassium 100 mg PO W/BRKFST 03/18/22 [History] Melatonin 5 - 10 mg PO HS 03/18/22 [History] Pantoprazole [Protonix] 40 mg PO BID-W/MEALS 03/18/22 [History] Baclofen [Lioresal] 5 mg PO W/BRKFST 03/17/23 [History] Cetirizine HCl 10 mg PO W/BRKFST 03/17/23 [History] Ferrous Sulfate [Feosol] 325 mg PO DAILY 03/17/23 [History] Magnesium Oxide [Mag-Ox] 400 mg PO W/BRKFST 03/17/23 [History] Metoprolol Succinate (ER) [Toprol Xl] 50 mg PO W/BRKFST 03/17/23 [History] Sennosides [Senokot] 8.6 - 17.2 mg PO HS 03/17/23 [History] Torsemide [Demadex] 20 mg PO W/BRKFST 03/17/23 [History] allopurinoL [Zyloprim] 100 mg PO W/BRKFST 03/17/23 [History] Follow up Appointment(s)/Referral(s): Tony Kumar MD [STAFF PHYSICIAN] - 1-2 days Discharge Disposition: - Preliminary Cause of Preliminary Cause of : Sepsis secondary to urinary tract infection with strep agalactiae
--- NOTE | 2023-03-26 14:21 | P.PN ---
Subjective Progress Note Date: 03/19/23 Principal diagnosis: Reason for follow-up is sepsis left leg cellulitis and bacteremia Patient is a 87-year-old female with a past medical history significant for hypertension hyperlipidemia osteoarthritis atrial fibrillation uterine cancer patient has been brought to the hospital for evaluation of weakness and did have a fall patient was noticed to have left lower extremity cellulitis and septic [place] agalactiae bacteremia with sepsis. On today's evaluation that is 03/19/2023 patient remains to be afebrile patient was noticed to be hypotensive and hypoxic requiring supplemental oxygen patient is currently lethargic unable to report any history no vomiting diarrhea or any other changes reported. Patient white count is 12.6, creatinine is 3.56 blood culture with Streptococcus agalactiae Objective - Vital Signs Vital signs: Vital Signs Temp 97.8 F 03/19/23 11:55 Pulse 79 03/19/23 12:22 Resp 23 03/19/23 12:15 BP 95/44 03/19/23 12:15 Pulse Ox 100 03/19/23 11:55 FiO2 Intake & Output 03/18/23 03/19/23 03/19/23 18:59 06:59 18:59 Intake Total 1370 20 30 Output Total 100 20 10 Balance 1270 0 20 Weight 61.5 kg Intake: IV 20 30 Invasive Line 2 20 20 Sodium Chloride 0.9% 1, 10 000 ml @ 100 mls/hr IV . Q10H [facility]IAN[facility] Rx#:[id number] Intake, IV Titration 1250 Amount Sodium Chloride 0.9% 1, 1200 000 ml @ 100 mls/hr IV . Q10H [facility]IANO Rx#:[id number] ceFAZolin 2 gm In Sodium 50 Chloride 0.9% 50 ml @ 100 mls/hr IVPB Q8HR [facility] Rx# :[id number] Oral 120 Output: Urine 100 20 10 Other: Voiding Method Indwelling Catheter Indwelling Catheter Indwelling Catheter # Bowel Movements 1 - Exam GENERAL DESCRIPTION: An elderly female lying in bed in no distress RESPIRATORY SYSTEM: Unlabored breathing , decreased breath sounds at bases HEART: S1 S2 regular rate and rhythm , ABDOMEN: Soft , no tenderness EXTREMITIES: Diffuse swelling redness to left lower extremity is warm to touch no blister open wound or drainage - Labs CBC & Chem 7: 03/19/23 08:24 03/19/23 07:56 Labs: Abnormal Lab Results - Last 24 Hours (Table) 03/18/23 03/18/23 03/18/23 Range/Units 10:34 15:06 18:17 WBC (3.8-10.6) k/uL RBC (3.80-5.40) m/uL Hgb (11.4-16.0) gm/dL Hct (34.0-46.0) % MCV (80.0-100.0) fL MCHC (31.0-37.0) g/dL RDW (11.5-15.5) % Plt Count (150-450) k/uL Neutrophils # (Manual) (1.3-7.7) k/uL Lymphocytes # (Manual) 0.43 L (1.0-4.8) k/uL Metamyelocytes # (Man) 0.17 H (0) k/uL Nucleated RBCs (0-0) /100 WBC Macrocytosis Chloride (98-107) mmol/L Carbon Dioxide (22-30) mmol/L BUN (7-17) mg/dL Creatinine (0.52-1.04) mg/dL POC Glucose (mg/dL) (70-110) mg/dL Plasma Lactic Acid Edu 4.1 H* 4.5 H* (0.7-2.0) mmol/L Calcium (8.4-10.2) mg/dL AST (14-36) U/L ALT (4-34) U/L Alkaline Phosphatase (38-126) U/L C-Reactive Protein (<1.0) mg/dL Total Protein (6.3-8.2) g/dL Albumin (3.5-5.0) g/dL 03/18/23 03/19/23 03/19/23 Range/Units 21:31 00:38 07:56 WBC (3.8-10.6) k/uL RBC (3.80-5.40) m/uL Hgb (11.4-16.0) gm/dL Hct (34.0-46.0) % MCV (80.0-100.0) fL MCHC (31.0-37.0) g/dL RDW (11.5-15.5) % Plt Count (150-450) k/uL Neutrophils # (Manual) (1.3-7.7) k/uL Lymphocytes # (Manual) (1.0-4.8) k/uL Metamyelocytes # (Man) (0) k/uL Nucleated RBCs (0-0) /100 WBC Macrocytosis Chloride 108 H (98-107) mmol/L Carbon Dioxide 13 L (22-30) mmol/L BUN 79 H (7-17) mg/dL Creatinine 3.56 H (0.52-1.04) mg/dL POC Glucose (mg/dL) (70-110) mg/dL Plasma Lactic Acid Edu 4.1 H* 3.5 H* (0.7-2.0) mmol/L Calcium 7.0 L (8.4-10.2) mg/dL AST 645 H (14-36) U/L ALT 388 H (4-34) U/L Alkaline Phosphatase 140 H (38-126) U/L C-Reactive Protein 65.3 H (<1.0) mg/dL Total Protein 4.9 L (6.3-8.2) g/dL Albumin 2.6 L (3.5-5.0) g/dL 03/19/23 03/19/23 03/19/23 Range/Units 08:24 08:24 11:48 WBC 12.6 H (3.8-10.6) k/uL RBC 2.54 L (3.80-5.40) m/uL Hgb 8.8 L (11.4-16.0) gm/dL Hct 29.3 L (34.0-46.0) % MCV 115.2 H (80.0-100.0) fL MCHC 30.1 L (31.0-37.0) g/dL RDW 17.4 H (11.5-15.5) % Plt Count 127 L (150-450) k/uL Neutrophils # (Manual) 11.20 H (1.3-7.7) k/uL Lymphocytes # (Manual) 0.38 L (1.0-4.8) k/uL Metamyelocytes # (Man) 0.13 H (0) k/uL Nucleated RBCs 1 H (0-0) /100 WBC Macrocytosis Marked A Chloride (98-107) mmol/L Carbon Dioxide (22-30) mmol/L BUN (7-17) mg/dL Creatinine (0.52-1.04) mg/dL POC Glucose (mg/dL) 65 L (70-110) mg/dL Plasma Lactic Acid Edu 2.3 H* (0.7-2.0) mmol/L Calcium (8.4-10.2) mg/dL AST (14-36) U/L ALT (4-34) U/L Alkaline Phosphatase (38-126) U/L C-Reactive Protein (<1.0) mg/dL Total Protein (6.3-8.2) g/dL Albumin (3.5-5.0) g/dL 03/19/23 Range/Units 12:12 WBC (3.8-10.6) k/uL RBC (3.80-5.40) m/uL Hgb (11.4-16.0) gm/dL Hct (34.0-46.0) % MCV (80.0-100.0) fL MCHC (31.0-37.0) g/dL RDW (11.5-15.5) % Plt Count (150-450) k/uL Neutrophils # (Manual) (1.3-7.7) k/uL Lymphocytes # (Manual) (1.0-4.8) k/uL Metamyelocytes # (Man) (0) k/uL Nucleated RBCs (0-0) /100 WBC Macrocytosis Chloride (98-107) mmol/L Carbon Dioxide (22-30) mmol/L BUN (7-17) mg/dL Creatinine (0.52-1.04) mg/dL POC Glucose (mg/dL) 133 H (70-110) mg/dL Plasma Lactic Acid Edu (0.7-2.0) mmol/L Calcium (8.4-10.2) mg/dL AST (14-36) U/L ALT (4-34) U/L Alkaline Phosphatase (38-126) U/L C-Reactive Protein (<1.0) mg/dL Total Protein (6.3-8.2) g/dL Albumin (3.5-5.0) g/dL Microbiology - Last 24 Hours (Table) 03/17/23 16:00 Blood Culture Gram Stain - Preliminary Blood Blood Culture - Preliminary Strep agalactiae - (group b) Assessment and Plan (1) Gram-positive bacteremia Status: Acute Code(s): R78.81 - BACTEREMIA SNOMED Code(s): 509575208478 (2) Leukocytosis Status: Acute Code(s): D72.829 - ELEVATED WHITE BLOOD CELL COUNT, UNSPECIFIED SNOMED Code(s): 437409198 (3) Left leg cellulitis Status: Acute Code(s): L03.116 - CELLULITIS OF LEFT LOWER LIMB SNOMED Code(s): 46948294958018673 (4) Sepsis Status: Acute Code(s): A41.9 - SEPSIS, UNSPECIFIED ORGANISM SNOMED Code(s): 60376939 Plan: 1patient presented to hospital with increasing weakness and did have a fall source is multifactorial patient noticed to have a left lower extremity cellulitis likely contributing to her symptomatology likely from gram-positive skin isha 2-patient did have Streptococcus agalactiae bacteremia source in this left lower extremity cellulitis 3-patient with evidence of sepsis and the patient is hypotensive elevated white count tachycardia secondary to left lower extremity cellulitis patient has been transferred to the ICU she is covered with cefazolin, clindamycin has been added for double coverage overall prognosis remains to be guarded Dictation was produced using [employer] dictation software. please excuse any gr ammatical, word or spelling errors. Time with Patient: Less than 30
== END 2023-03-19 17:44 | disposition expired | DRG 871 ==
LOC: EC 10:38 → SUPCPDRO 10:38 → 3SCARD 15:08 → 2SICU 03-19 11:32
PROVIDERS: ADMIT Hospitalist; ATTEND Hospitalist
PROC: 3E043XZ Introduction of Vasopressor into Central Vein, Percutaneous Approach (ICD-10-PCS; principal; 2023-03-19)
DX: A40.1 Sepsis due to streptococcus, group B (principal); G93.41 Metabolic encephalopathy; I63.89 Other cerebral infarction; N17.0 Acute kidney failure with tubular necrosis; J96.01 Acute respiratory failure with hypoxia; N39.0 Urinary tract infection, site not specified; L03.116 Cellulitis of left lower limb; E87.20 Acidosis, unspecified; K92.1 Melena; I48.20 Chronic atrial fibrillation, unspecified; I13.0 Hypertensive heart and chronic kidney disease with heart failure and stage 1 through stage 4 chronic kidney disease, or unspecified chronic kidney disease; D53.9 Nutritional anemia, unspecified; E78.5 Hyperlipidemia, unspecified; R65.20 Severe sepsis without septic shock; M19.90 Unspecified osteoarthritis, unspecified site; I95.9 Hypotension, unspecified; I65.22 Occlusion and stenosis of left carotid artery; Z51.5 Encounter for palliative care; Z66 Do not resuscitate; I25.10 Atherosclerotic heart disease of native coronary artery without angina pectoris; I50.9 Heart failure, unspecified; E86.1 Hypovolemia; N18.9 Chronic kidney disease, unspecified; K21.9 Gastro-esophageal reflux disease without esophagitis; R32 Unspecified urinary incontinence; I83.90 Asymptomatic varicose veins of unspecified lower extremity; R79.89 Other specified abnormal findings of blood chemistry; Z87.891 Personal history of nicotine dependence; Z95.0 Presence of cardiac pacemaker; Z90.49 Acquired absence of other specified parts of digestive tract; Z82.49 Family history of ischemic heart disease and other diseases of the circulatory system; Z91.81 History of falling; Z92.3 Personal history of irradiation; Z79.01 Long term (current) use of anticoagulants; Z79.82 Long term (current) use of aspirin; Z79.899 Other long term (current) drug therapy; Z60.2 Problems related to living alone; Z85.42 Personal history of malignant neoplasm of other parts of uterus
CPT/HCPCS: 36415; 70450; 71045; 71046; 80053; 81001; 82272; 82607; 82746; 83605; 83735; 83880; 83921; 84484; 85025; 85610; 85730; 86140; 87040; 87077; 87186; 93005; 93306; 93880; 94640; 94760; 96361; 96374; 99285